=== PATIENT | female | born 1960 | race African-American/Black ===

== ENCOUNTER 2019-01-29 07:04 | Inpatient (IN) | payer OTHER ==
[2019-01-26 11:43] LABS: ANION GAP 13.4 mmol/L (8-16); BLOOD UREA NITROGEN 18 mg/dL (7-26); BUN/CREATININE RATIO 24 (6-25); CARBON DIOXIDE 24 mmol/L (22-29); CHLORIDE 104 mmol/L (98-107); CREATININE, SERUM 0.75 mg/dL (0.57-1.11); EST GLOMERULAR FILTRATION RATE > 60 ML/MIN (60-); GLUCOSE 90 mg/dL (74-118); POTASSIUM 3.4 mmol/L (3.5-5.1); SODIUM 138 mmol/L (136-145)
[~2019-01-29] VITALS: Ht 152.4 cm; Wt 120.2 kg
[2019-01-29] VITALS: BP 122/68
[~2019-01-29 07:04] MED LIST: ATORVASTATIN CA20 MG PO; DILTIAZEM HCL60 MG PO; LISINOPRIL2.5 MG PO; ZOLOFT50 MG PO
--- OUTSIDE RECORDS SUMMARY | 2019-01-29 07:07 | XMS REPORT | Clinical Summary ---
Author Author [facility] Address Unknown Phone Unavailable Care Team Providers Care Cyber Engineer Name Role Phone Asked, No Pcp PCP Unavailable Allergies No Known Allergies Medications End Date Status Medication Sig Dispensed Refills Start Date Active amLODIPine (NORVASC) 10 0 MG tablet 6 Active fluticasone (FLONASE) 50 0 mcg/actuation nasal spray 6 Active lisinopril-hydrochlorothi 0 azide 6 (PRINZIDE,ZESTORETIC) 20-12.5 mg per tablet Active sertraline (ZOLOFT) 100 0 MG tablet 6 Active atorvastatin (LIPITOR) 80 TAKE 1 TABLET 0 MG tablet (80 MG) BY MOUTH DAILY Active ergocalciferol TAKE 1 0 (ERGOCALCIFEROL) 50,000 CAPSULE BY unit capsule MOUTH EVERY WEEK Active polyethylene glycol 4 LITERS ONCE 0 (GoLYTELY) 236-22.74-6.74 A DAY ORALLY -5.86 gram solution 1 DAY(S) 05/13/2018 naproxen (NAPROSYN) 500 Take 1 tablet 60 tablet 0 MG tablet (500 mg 7 total) by mouth 2 (two) times a day with meals. Active Problems Problem Noted Date Class 3 obesity with body mass index (BMI) of 45.0 to 49.9 in adult 05/13/2017 Osteoarthritis of knee 02/20/2016 Knee pain 02/20/2016 Family History Medical History Relation Name Comments No Known Problems Mother Relation Name Status Comments Mother Social History Date Tobacco Use Types Packs/Day Years Used Never Smoker Sex Assigned at Date Recorded Not on file Industry Job Start Date Occupation Not on file Not on file Not on file Travel End Travel History Travel Start No recent travel history available. 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
--- OUTSIDE RECORDS SUMMARY | 2019-01-29 07:08 | XMS REPORT | CCD ---
Author Author Auto Generated Organization [facility] Address Unknown Phone Unavailable Care Team Providers Care Stone Finisher Name Role Phone Cornell Zimmer RP Allergies, Adverse Reactions, Alerts Substance Reaction Status NKDA Active NKFA Active Problem List Condition Effective Dates Status Bilateral mastectomy 05/21/2010 Active Breast reconstruction with latissimus dorsi flap with 05/21/2010 Active implant Hypertension Active Hypothyroid Active
--- OUTSIDE RECORDS SUMMARY | 2019-01-29 07:08 | XMS REPORT | CCD ---
Author Author Auto Generated Organization [facility] Address Unknown Phone Unavailable Care Team Providers Care Cst Name Role Phone Stephen Gomez CP Eliud Perez PP Allergies, Adverse Reactions, Alerts Substance Reaction Status NKDA Active NKFA Active Problem List Condition Effective Dates Status Bilateral mastectomy 05/21/2010 Active Breast cancer Resolved Breast reconstruction with latissimus dorsi flap with 05/21/2010 Active implant Hypertension Resolved Hypertension Active Hypothyroid Active Medications Medication Instructions Start Date End Date Status lactulose 15 gm, 22.5 mL, Route: PO, Drug 10/22/2012 10/22/2012 Completed form: SYRP, ONCE, Start date: 10/22/12 13:34:00, Stop date: 10/22/12 13:34:00 Cymbalta 60 mg, 1 cap, Route: PO, Drug form: 10/22/2012 10/24/2012 Discontinued DRC, Daily, Start date: 10/22/12 9:00:00, Duration: 30 day, Stop date: 11/20/12 9:00:00 DuoNeb inhalation 3 mL, Route: NEB, Drug Form: SOLN, 10/21/2012 10/24/2012 Discontinued solution RQ6H, PRN Wheezing, Start date: 10/21/12 1:54:00, Duration: 30 day, Stop date: 11/20/12 1:53:00 Lovenox 40 mg, 0.4 mL, Route: SUB-Q, Drug 10/21/2012 10/24/2012 Discontinued form: INJ, Daily, Start date: 10/21/12 9:00:00, Duration: 30 day, Stop date: 11/19/12 9:00:00 levofloxacin 750 mg, 1 tab, Route: PO, Drug 10/22/2012 10/24/2012 Discontinued form: TAB, Q24H, Start date: 10/22/12 2:00:00, Duration: 30 day, Stop date: 11/20/12 2:00:00 Levaquin 750 mg, 150 mL, Route: IV, Drug 10/21/2012 10/21/2012 Completed form: SOLN, ONCE, Start date: 10/21/12 2:15:00, Stop date: 10/21/12 2:15:00 Sodium Chloride 0.9% 1,000 mL, Rate: 50 ml/hr, Infuse 10/21/2012 10/21/2012 Completed IV 1,000 mL over: 20 hr, Route: IV, Dosing Weight 104.119 kg, Total Volume: 1,000, Start date: 10/21/12 12:44:00, Duration: 1 doses or times, Stop date: 10/22/12 8:43:00 methylPREDNISolone 125 mg, 2 mL, Route: IV, Drug form: 10/22/2012 10/22/2012 Discontinued INJ, Q24H, Start date: 10/22/12 0:00:00, Duration: 30 day, Stop date: 11/20/12 0:00:00 Robitussin 200 mg, 10 mL, Route: PO, Drug 10/21/2012 10/22/2012 Discontinued form: SYRP, Q4H, PRN Cough, Start date: 10/21/12 1:51:00, Duration: 30 day, Stop date: 11/20/12 1:50:00 Pepcid 20 mg, 1 tab, Route: PO, Drug form: 10/21/2012 10/24/2012 Discontinued TAB, Q12H, Start date: 10/21/12 9:00:00, Duration: 30 day, Stop date: 11/19/12 21:00:00 Sodium Chloride 0.9% 250 mL, Route: IVPB, Start date: 10/21/2012 10/24/2012 Discontinued IV 10/21/12 1:51:00, Duration: 30 day, Stop date: 11/20/12 1:50:00, PRN Line Flush BD Normal Saline 10 mL, Route: IVP, Drug Form: INJ, 10/21/2012 10/24/2012 Discontinued Flush PRN, PRN Line Flush, Start date: 10/21/12 1:51:00, Duration: 30 day, Stop date: 11/20/12 1:50:00 Tessalon Perles 200 mg, 2 cap, Route: PO, Drug 10/23/2012 10/24/2012 Discontinued form: CAP, TID, Start date: 10/23/12 19:22:00, Duration: 30 day, Stop date: 11/22/12 17:00:00 pneumococcal 0.5 ml, Route: IM, ONCALL, Start 10/24/2012 10/24/2012 Completed 23-valent vaccine date: 10/24/12 15:27:17, Stop date: 11/23/12 15:22:17 predniSONE 40 mg, 2 tab, Route: PO, Drug form: 10/23/2012 10/24/2012 Discontinued TAB, Daily, Start date: 10/23/12 9:00:00, Duration: 30 day, Stop date: 11/21/12 9:00:00 SoluMedrol 125 mg, Route: IV, ONCE, Dosing 10/21/2012 10/21/2012 Completed Weight 106.818, kg, Start date: 10/21/12 0:56:00, Stop date: 10/21/12 0:56:00 ipratropium 0.5 mg, 2.5 mL, Route: NEB, Drug 10/20/2012 10/20/2012 Completed form: SOLN, Q15Min, Dosing Weight 106.818, kg, Priority: STAT, Start date: 10/20/12 22:12:00, Duration: 2 doses or times, Stop date: 10/20/12 22:27:00 albuterol 0.083% 2.49 mg, 3 mL, Route: NEB, Drug 10/20/2012 10/20/2012 Completed inhalation solution form: SOLN, Q15Min, Dosing Weight 106.818, kg, Priority: STAT, Start date: 10/20/12 22:12:00, Duration: 2 doses or times, Stop date: 10/20/12 22:27:00 Robitussin-DM 10 mL, Route: PO, Drug Form: LIQ, 10/23/2012 10/24/2012 Discontinued Q6H-02, Start date: 10/23/12 20:00:00, Duration: 30 day, Stop date: 11/22/12 14:00:00 budesonide-formotero 1 inhalation, Route: INHALATION, 10/21/2012 10/24/2012 Discontinued l 160 mcg-4.5 Drug Form: AERO/A, RBID, Start mcg/inh inhalation date: 10/21/12 20:00:00, Duration: aerosol with adapter 30 day, Stop date: 11/20/12 8:00:00 Norvasc 10 mg, 1 tab, Route: PO, Drug form: 10/21/2012 10/24/2012 Discontinued TAB, Q24H, Start date: 10/21/12 13:00:00, Duration: 30 day, Stop date: 11/19/12 13:00:00 [place] 5/325 oral 1 tab, Route: PO, Drug Form: TAB, 10/20/2012 10/20/2012 Completed tablet Dosing Weight 106.818, kg, ONCE, Start date: 10/20/12 23:11:00, Stop date: 10/20/12 23:11:00 ibuprofen 800 mg, 1 tab, Route: PO, Drug 10/20/2012 10/20/2012 Completed form: TAB, ONCE, Dosing Weight 106.818, kg, Priority: STAT, Start date: 10/20/12 23:11:00, Stop date: 10/20/12 23:11:00 ibuprofen 600 mg, 1 tab, Route: PO, Drug 10/20/2012 10/20/2012 Discontinued form: TAB, ONCE, Dosing Weight 106.818, kg, Priority: STAT, Start date: 10/20/12 23:08:00, Stop date: 10/20/12 23:08:00 [place] 5/325 oral 1 tab, Route: PO, Drug Form: TAB, 10/20/2012 10/20/2012 Completed tablet Dosing Weight 106.818, kg, ONCE, STAT, Start date: 10/20/12 23:08:00, Stop date: 10/20/12 23:08:00 Robitussin-DM 10 mL, Route: PO, Drug Form: LIQ, 10/22/2012 10/24/2012 Discontinued Q6H, PRN Cough, Start date: 10/22/12 20:00:00, Duration: 30 day, Stop date: 11/21/12 19:59:00 Robitussin-DM 10 mL, Route: PO, Drug Form: LIQ, 10/22/2012 10/22/2012 Completed ONCE, Start date: 10/22/12 14:00:00, Stop date: 10/22/12 14:00:00 vancomycin 1 gm, 200 mL, Route: IVPB, Drug 10/20/2012 10/21/2012 Completed form: INJ, ONCE, Dosing Weight 106.818, kg, Priority: STAT, Start date: 10/20/12 23:24:00, Stop date: 10/20/12 23:24:00 cefepime + Sodium 2 gm, Route: IVPB, Drug form: INJ, 10/20/2012 10/21/2012 Completed Chloride 0.9% IV 100 ONCE, Dosing Weight 106.818, kg, mL Priority: STAT, Start date: 10/20/12 23:24:00, Stop date: 10/20/12 23:24:00 Immunizations Vaccine Date Status pneumococcal 23-valent vaccine 10/24/2012 Auth (Verified) Vital Signs Most recent to oldest [Reference Range]: 1 2 3 Height 152.4 cm (10/21/2012 02:04:00) 152.4 cm (10/20/2012 21:50:00) Temperature Oral [96.4-99.1 DegF] 98.5 DegF (10/24/2012 12:03:00) 98.6 DegF (10/24/2012 08:15:00) 98.4 DegF (10/24/2012 04:03:00) Systolic Blood Pressure [90-140 mmHg] 139 mmHg (10/24/2012 12:03:00) 153 mmHg *HI* (10/24/2012 08:15:00) 138 mmHg (10/24/2012 04:03:00) Diastolic Blood Pressure [60-90 mmHg] 89 mmHg (10/24/2012 12:03:00) 92 mmHg *HI* (10/24/2012 08:15:00) 88 mmHg (10/24/2012 04:03:00) Respiratory Rate [14-20 BRMIN] 20 BRMIN (10/24/2012 12:03:00) 20 BRMIN (10/24/2012 08:15:00) 20 BRMIN (10/24/2012 04:03:00) Peripheral Pulse Rate [60-100 bpm] 90 bpm (10/24/2012 12:03:00) 89 bpm (10/24/2012 08:15:00) 87 bpm (10/24/2012 04:03:00) Weight 104.119 kg (10/21/2012 02:04:00) 106.818 kg (10/20/2012 21:50:00) Results BACTERIAL - SEROLOGY Most recent to oldest [Reference Range]: 1 2 3 U S pneumo Ag [Negative] Negative (10/21/2012 05:30:21) MICRO MISC - SEROLOGY Most recent to oldest [Reference Range]: 1 2 3 U Legion Ag [Negative] Negative 1 (10/21/2012 05:30:21) 1Interpretive Data: This kit tests for Legionella pneumophila Serogroup 1 Antigen. CHEMISTRY Most recent to oldest [Reference Range]: 1 2 3 Sodium Lvl [135-145 mEq/L] 141 mEq/L (10/24/2012 05:10:00) 140 mEq/L (10/23/2012 05:50:00) 142 mEq/L (10/22/2012 05:00:00) Potassium Lvl [3.5-5.1 mEq/L] 3.7 mEq/L (10/24/2012 05:10:00) 3.7 mEq/L (10/23/2012 05:50:00) 4.5 mEq/L (10/22/2012 05:00:00) Chloride Lvl [95-109 mEq/L] 104 mEq/L (10/24/2012 05:10:00) 105 mEq/L (10/23/2012 05:50:00) 103 mEq/L (10/22/2012 05:00:00) CO2 [24-32 mEq/L] 27 mEq/L (10/24/2012 05:10:00) 21 mEq/L *LOW* (10/23/2012 05:50:00) 21 mEq/L *LOW* (10/22/2012 05:00:00) AGAP [10.0-20.0 mEq/L] 13.7 mEq/L (10/24/2012 05:10:00) 17.7 mEq/L (10/23/2012 05:50:00) 22.5 mEq/L *HI* (10/22/2012 05:00:00) Creatinine Lvl [0.5-1.4 mg/dL] 0.8 mg/dL (10/24/2012 05:10:00) 1.0 mg/dL (10/23/2012 05:50:00) 0.7 mg/dL (10/22/2012 05:00:00) eGFR 99 mL/min/1.73m2 2 *NA* (10/24/2012 05:10:00) 77 mL/min/1.73m2 3 *NA* (10/23/2012 05:50:00) 116 mL/min/1.73m2 4 *NA* (10/22/2012 05:00:00) BUN [7-22 mg/dL] 19 mg/dL (10/24/2012 05:10:00) 24 mg/dL *HI* (10/23/2012 05:50:00) 14 mg/dL (10/22/2012 05:00:00) B/C Ratio [6-25] 20 (10/22/2012 05:00:00) 7 (10/21/2012 09:00:00) 8 (10/20/2012 22:20:00) Glucose Lvl [70-99 mg/dL] 65 mg/dL 5 *LOW* (10/24/2012 05:10:00) 110 mg/dL 6 *HI* (10/23/2012 05:50:00) 121 mg/dL 7 *HI* (10/22/2012 05:00:00) Total Protein [6.4-8.4 g/dL] 7.9 g/dL (10/22/2012 05:00:00) 7.9 g/dL (10/21/2012 09:00:00) 8.4 g/dL (10/20/2012 22:20:00) Albumin Lvl [3.5-5.0 g/dL] 3.3 g/dL *LOW* (10/22/2012 05:00:00) 3.3 g/dL *LOW* (10/21/2012 09:00:00) 3.5 g/dL (10/20/2012 22:20:00) Globulin [2.0-4.0 g/dL] 4.6 g/dL *HI* (10/22/2012 05:00:00) 4.6 g/dL *HI* (10/21/2012 09:00:00) 4.9 g/dL *HI* (10/20/2012 22:20:00) A/G Ratio [0.7-1.6] 0.7 (10/22/2012 05:00:00) 0.7 (10/21/2012 09:00:00) 0.7 (10/20/2012 22:20:00) Calcium Lvl [8.5-10.5 mg/dL] 8.6 mg/dL (10/24/2012 05:10:00) 9.1 mg/dL (10/23/2012 05:50:00) 9.1 mg/dL (10/22/2012 05:00:00) Magnesium Lvl [1.8-2.4 mg/dL] 2.1 mg/dL (10/22/2012 05:00:00) ALT [0-65 unit/L] 56 unit/L (10/22/2012 05:00:00) 86 unit/L *HI* (10/21/2012 09:00:00) 39 unit/L (10/20/2012 22:20:00) AST [0-37 unit/L] 32 unit/L (10/22/2012 05:00:00) 110 unit/L *HI* (10/21/2012 09:00:00) 15 unit/L (10/20/2012 22:20:00) Alk Phos [39-136 unit/L] 47 unit/L (10/22/2012 05:00:00) 64 unit/L (10/21/2012 09:00:00) 55 unit/L (10/20/2012 22:20:00) Bili Total [0.2-1.3 mg/dL] 0.4 mg/dL (10/22/2012 05:00:00) 0.5 mg/dL (10/21/2012 09:00:00) 0.4 mg/dL (10/20/2012 22:20:00) Lactic Acid Lvl [0.5-2.2 mMol/L] 2.1 mMol/L (10/21/2012 00:17:29) Total CK [12-191 unit/L] 117 unit/L (10/20/2012 22:20:00) CK MB [0.5-3.6 ng/mL] <0.5 ng/mL (10/20/2012:20:00) CK MB Index [0.0-2.5] <0.4 (10/20/2012:20:00) Troponin-I [0.00-0.40 ng/mL] <0.02 ng/mL (10/20/2012 22:20:00) Hgb A1C 5.7 % 8 *NA* (10/22/2012 05:00:00) pH Art [7.35-7.45] 7.42 (10/20/2012:24:00) pCO2 Art [35-45 mmHg] 40 mmHg (10/20/2012:24:00) pO2 Art [80-100 mmHg] 71 mmHg *LOW* (10/20/2012:24:00) HCO3 Art [22-26 mMol/L] 26 mMol/L (10/20/2012:24:00) BE Art [-2-2 mMol/L] 1 mMol/L (10/20/2012:24:00) O2 Sat Art [95.0-100.0 %] 94.4 % *LOW* (10/20/2012:24:00) Temp Art 37.0 DegC *NA* (10/20/2012:24:00) Mode Art Rm Air (10/20/2012 23:24:00) 2Result Comment: The eGFR is calculated using the CKD-EPI formula. In most young, healthy individuals the eGFR will be >90 mL/min/1.73m2. The eGFR declines with age. An eGFR of 60-89 may be normal in some populations, particularly the elderly, for whom the CKD-EPI formula has not been extensively validated. Use of the eGFR is not recommended in the following populations: Individuals with unstable creatinine concentrations, including patients and those with serious co-morbid conditions. Patients with extremes in muscle mass or diet. The data above are obtained from the National Kidney Disease Education Program ( NKDEP) which additionally recommends that when the eGFR is used in patients with extremes of body mass index for purposes of drug dosing, the eGFR should be mul tiplied by the estimated BMI. 3Result Comment: The eGFR is calculated using the CKD-EPI formula. In most young, healthy individuals the eGFR will be >90 mL/min/1.73m2. The eGFR declines with age. An eGFR of 60-89 may be normal in some populations, particularly the elderly, for whom the CKD-EPI formula has not been extensively validated. Use of the eGFR is not recommended in the following populations: Individuals with unstable creatinine concentrations, including patients and those with serious co-morbid conditions. Patients with extremes in muscle mass or diet. The data above are obtained from the National Kidney Disease Education Program ( NKDEP) which additionally recommends that when the eGFR is used in patients with extremes of body mass index for purposes of drug dosing, the eGFR should be mul tiplied by the estimated BMI. 4Result Comment: The eGFR is calculated using the CKD-EPI formula. In most young, healthy individuals the eGFR will be >90 mL/min/1.73m2. The eGFR declines with age. An eGFR of 60-89 may be normal in some populations, particularly the elderly, for whom the CKD-EPI formula has not been extensively validated. Use of the eGFR is not recommended in the following populations: Individuals with unstable creatinine concentrations, including patients and those with serious co-morbid conditions. Patients with extremes in muscle mass or diet. The data above are obtained from the National Kidney Disease Education Program ( NKDEP) which additionally recommends that when the eGFR is used in patients with extremes of body mass index for purposes of drug dosing, the eGFR should be mul tiplied by the estimated BMI. 5Interpretive Data: Adult reference range values reflect the clinical guidelines of the [place] [employer]. 6Interpretive Data: Adult reference range values reflect the clinical guidelines of the [place] [employer]. 7Interpretive Data: Adult reference range values reflect the clinical guidelines of the [place] [employer]. 8Interpretive Data: HbA1C% eAG(mg/dL) Interpretation 6.0 126 Very good control 6.5 140 Very good control 7.0 154 Good Control 7.5 169 Good Control 8.0 183 Marginal Control, take action to lower 8.5 197 Marginal Control, take action to lower 9.0 212 Poor Control, take action to lower 9.5 226 Poor Control, take action to lower 10.0 240 Poor Control, take action to lower HEMATOLOGY Most recent to oldest [Reference Range]: 1 2 3 WBC [3.7-10.4 K/CMM] 11.6 K/CMM *HI* (10/24/2012 05:10:00) 19.0 K/CMM *HI* (10/23/2012 05:50:00) 14.7 K/CMM *HI* (10/22/2012 05:00:00) RBC [4.20-5.40 M/CMM] 3.90 M/CMM *LOW* (10/24/2012 05:10:00) 4.21 M/CMM (10/23/2012 05:50:00) 4.28 M/CMM (10/22/2012 05:00:00) Hgb [12.0-16.0 g/dL] 10.9 g/dL *LOW* (10/24/2012 05:10:00) 11.7 g/dL *LOW* (10/23/2012 05:50:00) 12.1 g/dL (10/22/2012 05:00:00) Hct [36.0-48.0 %] 33.0 % *LOW* (10/24/2012 05:10:00) 35.4 % *LOW* (10/23/2012 05:50:00) 36.1 % (10/22/2012 05:00:00) MCV [81.0-99.0 fL] 84.4 fL (10/24/2012 05:10:00) 84.0 fL (10/23/2012 05:50:00) 84.2 fL (10/22/2012 05:00:00) MCH [27.0-31.0 pg] 27.8 pg (10/24/2012 05:10:00) 27.8 pg (10/23/2012 05:50:00) 28.1 pg (10/22/2012 05:00:00) MCHC [32.0-36.0 g/dL] 32.9 g/dL (10/24/2012 05:10:00) 33.1 g/dL (10/23/2012 05:50:00) 33.5 g/dL (10/22/2012 05:00:00) RDW [11.5-14.5 %] 15.2 % *HI* (10/24/2012 05:10:00) 15.4 % *HI* (10/23/2012 05:50:00) 15.0 % *HI* (10/22/2012 05:00:00) Platelet [133-450 K/CMM] 384 K/CMM (10/24/2012 05:10:00) 394 K/CMM (10/23/2012 05:50:00) 375 K/CMM (10/22/2012 05:00:00) MPV [7.4-10.4 fL] 8.2 fL (10/24/2012 05:10:00) 7.9 fL (10/23/2012 05:50:00) 8.5 fL (10/22/2012 05:00:00) Segs [45.0-75.0 %] 70.5 % (10/24/2012 05:10:00) 86.2 % *HI* (10/23/2012 05:50:00) 88.9 % *HI* (10/22/2012 05:00:00) Lymphocytes [20.0-40.0 %] 20.5 % (10/24/2012 05:10:00) 8.1 % *LOW* (10/23/2012 05:50:00) 9.5 % *LOW* (10/22/2012 05:00:00) Monocytes [2.0-12.0 %] 8.7 % (10/24/2012 05:10:00) 5.7 % (10/23/2012 05:50:00) 1.5 % *LOW* (10/22/2012 05:00:00) Eosinophils [0.0-4.0 %] 0.0 % (10/24/2012 05:10:00) 0.0 % (10/23/2012 05:50:00) 0.0 % (10/22/2012 05:00:00) Basophils [0.0-1.0 %] 0.3 % (10/24/2012 05:10:00) 0.0 % (10/23/2012 05:50:00) 0.1 % (10/22/2012 05:00:00) Segs-Bands # [1.5-8.1 K/CMM] 8.2 K/CMM *HI* (10/24/2012 05:10:00) 16.3 K/CMM *HI* (10/23/2012 05:50:00) 13.1 K/CMM *HI* (10/22/2012 05:00:00) Lymphocytes # [1.0-5.5 K/CMM] 2.4 K/CMM (10/24/2012 05:10:00) 1.5 K/CMM (10/23/2012 05:50:00) 1.4 K/CMM (10/22/2012 05:00:00) Monocytes # [0.0-0.8 K/CMM] 1.0 K/CMM *HI* (10/24/2012 05:10:00) 1.1 K/CMM *HI* (10/23/2012 05:50:00) 0.2 K/CMM (10/22/2012 05:00:00) Eosinophils # [0.0-0.5 K/CMM] 0.0 K/CMM (10/24/2012 05:10:00) 0.0 K/CMM (10/23/2012 05:50:00) 0.0 K/CMM (10/22/2012 05:00:00) Basophils # [0.0-0.2 K/CMM] 0.0 K/CMM (10/24/2012 05:10:00) 0.0 K/CMM (10/23/2012 05:50:00) 0.0 K/CMM (10/22/2012 05:00:00) RBC Morph Normal (10/21/2012 09:00:00) Polychrom [None Seen] Slight (10/24/2012 05:10:00) Plt Morph Normal (10/21/2012 09:00:00) Sed Rate [0-20 mm/hr] 45 mm/hr *HI* (10/21/2012 09:00:00) IMMUNOLOGY Most recent to oldest [Reference Range]: 1 2 3 HIV 1/2 Ab [Negative] Negative *NA* (10/21/2012 09:00:00) Microbiology Reports PROCEDURE:Culture: Respiratory w/Gram Stain STATUS: Auth (Verified) BODY SITE: COLLECTED DATE/TIME: 10/21/2012 05:30:47 SOURCE: Sputum FREE TEXT SOURCE: FINAL REPORTS Final Report Many Haemophilus parainfluenzae Rare Staphylococcus aureus Normal Respiratory Chel Isolated PRELIMINARY REPORTS Preliminary Report Normal Respiratory Chel Isolated Preliminary Report Many Haemophilus parainfluenzae Rare Staphylococcus aureus Normal Respiratory Chel Isolated Further Testing In Progress Preliminary Report Normal Respiratory Chel Isolated Further Testing In Progress STAIN REPORTS Stain Report Less Than 25 Squamous Epithelial Cells/Lpf Rare WBC's Few Gram Positive Cocci Rare Gram Positive Rods Rare Gram Negative Rods Good Quality Specimen SUSCEPTIBILITY REPORT SA Antibiotic INTERP., DAREN., Cefazolin S <=4 Clindamycin S <=0.25 Erythromycin S <=0.25 Levofloxacin S <=0.5 Oxacillin S 0.5 Rifampin S <=1 Tetracycline S <=1 Trimethoprim/Sulfamethoxazole S <=0.5/9.5 Vancomycin S 1 PROCEDURE:Culture: Blood STATUS: Auth (Verified) BODY SITE: COLLECTED DATE/TIME: 10/21/2012 00:17:48 SOURCE: Blood FREE TEXT SOURCE: FINAL REPORTS Final Report No Growth At 5 Days PRELIMINARY REPORTS Preliminary Report No Growth; Holding Preliminary Report No Growth At 2 Days Preliminary Report No Growth At 4 Days Preliminary Report No Growth At 3 Days Preliminary Report No Growth At 1 Day PROCEDURE:Culture: Blood STATUS: Auth (Verified) BODY SITE: COLLECTED DATE/TIME: 10/21/2012 00:17:04 SOURCE: Blood FREE TEXT SOURCE: FINAL REPORTS Final Report No Growth At 5 Days PRELIMINARY REPORTS Preliminary Report No Growth At 3 Days Preliminary Report No Growth At 4 Days Preliminary Report No Growth; Holding Preliminary Report No Growth At 2 Days Preliminary Report No Growth At 1 Day Procedures Procedures Date Related Diagnosis section Cholecystectomy Hernia repair Mastectomy
--- OUTSIDE RECORDS SUMMARY | 2019-01-29 07:08 | XMS REPORT | Summary of Care ---
Author Organization Unknown Address Unknown Phone Unavailable Care Team Providers Care Housing [employer] Judge Name Role Phone Eliud Perez PCP Encounter [facility] Yus[facility](EZIO) [id number] Date(s): 11/15/14 - 12/14/14 [facility] Discharge Disposition: Home Physician Attending: Mihir Pantoja MD Vital Signs No data available for this section Problem List Condition Effective Dates Status Health Status Informant Bilateral 05/21/10 Active mastectomy(Confirmed ) Breast Resolved cancer(Confirmed) Breast 05/21/10 Active reconstruction with latissimus dorsi flap with implant(Confirmed) Hypertension(Confirm Resolved ed) Hypertension(Confirm Active ed) Hypothyroid(Confirme Active d) Allergies, Adverse Reactions, Alerts Substance Reaction Severity Status NKDA Active NKFA Active Medications No data available for this section Results No data available for this section Immunizations Vaccine Date Refusal Reason pneumococcal 23-valent vaccine 10/24/12 Procedures Procedure Date Related Diagnosis Body Site section Cholecystectomy Hernia repair Mastectomy Social History Social History Type Response Assessment and Plan No data available for this section
--- OUTSIDE RECORDS SUMMARY | 2019-01-29 07:08 | XMS REPORT | Continuity of Care Document ---
Author Author [employer] Organization [employer] Address Unknown Phone Unavailable Care Team Providers Care Reclamation Engineer Name Role Phone DefenCall Information Exchange Unavailable Unavailable Problems Problem Status Onset Date Classification Date Reported Comments Source MORBID OBERSITY E66.01 Active 01/10/2017 [facility] E66.01 MORBID OBESITY Active 11/04/2016 [facility] [id number] Active 2016 [facility] ACUTE RLL PNEUMONIA Active 10/20/2012 [facility] BRONCHITIS Active 10/20/2012 [facility] 466.0 - ACUTE BRONCHITI Active 10/13/2012 [facility] LEFT BREASTS CANCER 174.9, 611.0 Active 10/25/2011 [facility] Bilateral mastectomy Active 05/21/2010 Problem 10/26/2012 [facility] Breast reconstruction with latissimus dorsi flap with implant Active 05/21/2010 Problem 10/26/2012 [facility] Bilateral mastectomy (procedure) Active 05/21/2010 Problem 01/13/2017 [facility] Breast reconstruction with latissimus dorsi flap with implant (procedure) Active 05/21/2010 Problem 01/13/2017 [facility] Hypertension Resolved Problem 10/26/2012 [facility] Hypothyroid Active Problem 10/26/2012 [facility] Malignant tumor of breast (disorder) Resolved Problem 01/13/2017 [facility] Hypertensive disorder, systemic arterial (disorder) Resolved Problem 01/13/2017 [facility] Hypothyroidism (disorder) Active Problem 01/13/2017 [facility] Breast cancer Resolved Problem 10/26/2012 [facility] PNEUMONIA, ORGANISM NOS Active [facility] RT KNEE PAIN Active [facility] JOINT DIS NOS-L/LEG Active [facility] MORBID (SEVERE) OBESITY DUE TO EXCESS CA Active [place] Medications Medication Details Route Status Patient Instructions Ordering Provider Order Date Source diltiazem 360 mg/24 hours oral capsule, extended release 360 mg=1 cap, PO, Daily, 0 Refill(s) Active 10/08/2016 [facility] atorvastatin 80 mg oral tablet 80 mg=1 tab, PO, Daily, 0 Refill(s) Active 10/08/2016 [facility] Sertraline 100 MG Oral Tablet [Zoloft] 100 mg=1 tab, PO, Daily, 0 Refill(s) Active 10/08/2016 [facility] Hydrochlorothiazide 12.5 MG / Lisinopril 20 MG Oral Tablet 1 tab, PO, Daily, 0 Refill(s) Active 10/08/2016 [facility] pneumococcal 23-valent vaccine 0.5 ml, Route: IM, ONCALL, Start date: 10/24/12 15:27:17, Stop date: 11/23/12 15:22:17 Inactive SYSTEM 10/24/2012 MARION Castrejon,[facility] Robitussin-DM 10 mL, Route: PO, Drug Form: LIQ, Q6H-02, Start date: 10/23/12 20:00:00, Duration: 30 day, Stop date: 11/22/12 14:00:00 PO No Longer Active [facility] 10/24/2012 [facility] Tessalon Perles 200 mg, 2 cap, Route: PO, Drug form: CAP, TID, Start date: 10/23/12 19:22:00, Duration: 30 day, Stop date: 11/22/12 17:00:00 PO No Longer Active [facility] 10/24/2012 [facility] predniSONE 40 mg, 2 tab, Route: PO, Drug form: TAB, Daily, Start date: 10/23/12 9:00:00, Duration: 30 day, Stop date: 11/21/12 9:00:00 PO No Longer Active [facility] 10/23/2012 [facility] Robitussin-DM 10 mL, Route: PO, Drug Form: LIQ, Q6H, PRN Cough, Start date: 10/22/12 20:00:00, Duration: 30 day, Stop date: 11/21/12 19:59:00 PO No Longer Active [facility] 10/23/2012 [facility] Robitussin-DM 10 mL, Route: PO, Drug Form: LIQ, ONCE, Start date: 10/22/12 14:00:00, Stop date: 10/22/12 14:00:00 PO No Longer Active [facility] 10/22/2012 [facility] lactulose 15 gm, 22.5 mL, Route: PO, Drug form: SYRP, ONCE, Start date: 10/22/12 13:34:00, Stop date: 10/22/12 13:34:00 PO No Longer Active [facility] 10/22/2012 [facility] Cymbalta 60 mg, 1 cap, Route: PO, Drug form: DRC, Daily, Start date: 10/22/12 9:00:00, Duration: 30 day, Stop date: 11/20/12 9:00:00 PO No Longer Active [facility] 10/22/2012 [facility] levofloxacin 750 mg, 1 tab, Route: PO, Drug form: TAB, Q24H, Start date: 10/22/12 2:00:00, Duration: 30 day, Stop date: 11/20/12 2:00:00 PO No Longer Active [facility] 10/22/2012 [facility] methylPREDNISolone 125 mg, 2 mL, Route: IV, Drug form: INJ, Q24H, Start date: 10/22/12 0:00:00, Duration: 30 day, Stop date: 11/20/12 0:00:00 IV No Longer Active [facility] 10/22/2012 [facility] budesonide-formoterol 160 mcg-4.5 mcg/inh inhalation aerosol with adapter 1 inhalation, Route: INHALATION, Drug Form: AERO/A, RBID, Start date: 10/21/12 20:00:00, Duration: 30 day, Stop date: 11/20/12 8:00:00 INHALATION No Longer Active [facility] 10/22/2012 [facility] Norvasc 10 mg, 1 tab, Route: PO, Drug form: TAB, Q24H, Start date: 10/21/12 13:00:00, Duration: 30 day, Stop date: 11/19/12 13:00:00 PO No Longer Active [facility] 10/21/2012 [facility] Sodium Chloride 0.9% IV 1,000 mL 1,000 mL, Rate: 50 ml/hr, Infuse over: 20 hr, Route: IV, Dosing Weight 104.119 kg, Total Volume: 1,000, Start date: 10/21/12 12:44:00, Duration: 1 doses or times, Stop date: 10/22/12 8:43:00 IV No Longer Active [facility] 10/21/2012 [facility] Lovenox 40 mg, 0.4 mL, Route: SUB-Q, Drug form: INJ, Daily, Start date: 10/21/12 9:00:00, Duration: 30 day, Stop date: 11/19/12 9:00:00 SUB-Q No Longer Active [facility] 10/21/2012 [facility] Pepcid 20 mg, 1 tab, Route: PO, Drug form: TAB, Q12H, Start date: 10/21/12 9:00:00, Duration: 30 day, Stop date: 11/19/12 21:00:00 PO No Longer Active [facility] 10/21/2012 [facility] Levaquin 750 mg, 150 mL, Route: IV, Drug form: SOLN, ONCE, Start date: 10/21/12 2:15:00, Stop date: 10/21/12 2:15:00 IV No Longer Active [facility] 10/21/2012 [facility] DuoNeb inhalation solution 3 mL, Route: NEB, Drug Form: SOLN, RQ6H, PRN Wheezing, Start date: 10/21/12 1:54:00, Duration: 30 day, Stop date: 11/20/12 1:53:00 NEB No Longer Active [facility] 10/21/2012 [facility] Robitussin 200 mg, 10 mL, Route: PO, Drug form: SYRP, Q4H, PRN Cough, Start date: 10/21/12 1:51:00, Duration: 30 day, Stop date: 11/20/12 1:50:00 PO No Longer Active [facility] 10/21/2012 [facility] Sodium Chloride 0.9% IV 250 mL, Route: IVPB, Start date: 10/21/12 1:51:00, Duration: 30 day, Stop date: 11/20/12 1:50:00, PRN Line Flush IVPB No Longer Active [facility] 10/21/2012 [facility] BD Normal Saline Flush 10 mL, Route: IVP, Drug Form: INJ, PRN, PRN Line Flush, Start date: 10/21/12 1:51:00, Duration: 30 day, Stop date: 11/20/12 1:50:00 IVP No Longer Active [facility] 10/21/2012 [facility] SoluMedrol 125 mg, Route: IV, ONCE, Dosing Weight 106.818, kg, Start date: 10/21/12 0:56:00, Stop date: 10/21/12 0:56:00 IV No Longer Active [facility] 10/21/2012 [facility] vancomycin 1 gm, 200 mL, Route: IVPB, Drug form: INJ, ONCE, Dosing Weight 106.818, kg, Priority: STAT, Start date: 10/20/12 23:24:00, Stop date: 10/20/12 23:24:00 IVPB No Longer Active [facility] 10/21/2012 [facility] cefepime + Sodium Chloride 0.9% IV 100 mL 2 gm, Route: IVPB, Drug form: INJ, ONCE, Dosing Weight 106.818, kg, Priority: STAT, Start date: 10/20/12 23:24:00, Stop date: 10/20/12 23:24:00 IVPB No Longer Active [facility]10/21/2012 [facility] [place] 5/325 oral tablet 1 tab, Route: PO, Drug Form: TAB, Dosing Weight 106.818, kg, ONCE, Start date: 10/20/12 23:11:00, Stop date: 10/20/12 23:11:00 PO No Longer Active [facility] 10/21/2012 [facility] ibuprofen 800 mg, 1 tab, Route: PO, Drug form: TAB, ONCE, Dosing Weight 106.818, kg, Priority: STAT, Start date: 10/20/12 23:11:00, Stop date: 10/20/12 23:11:00 PO No Longer Active Lagisey 10/21/2012 [facility] ibuprofen 600 mg, 1 tab, Route: PO, Drug form: TAB, ONCE, Dosing Weight 106.818, kg, Priority: STAT, Start date: 10/20/12 23:08:00, Stop date: 10/20/12 23:08:00 PO No Longer Active [facility] 10/21/2012 [facility] [place] 5/325 oral tablet 1 tab, Route: PO, Drug Form: TAB, Dosing Weight 106.818, kg, ONCE, STAT, Start date: 10/20/12 23:08:00, Stop date: 10/20/12 23:08:00 PO No Longer Active Poppyise10/21/2012 [facility] ipratropium 0.5 mg, 2.5 mL, Route: NEB, Drug form: SOLN, Q15Min, Dosing Weight 106.818, kg, Priority: STAT, Start date: 10/20/12 22:12:00, Duration: 2 doses or times, Stop date: 10/20/12 22:27:00 NEB No Longer Active [facility] 10/21/2012 [facility] albuterol 0.083% inhalation solution 2.49 mg, 3 mL, Route: NEB, Drug form: SOLN, Q15Min, Dosing Weight 106.818, kg, Priority: STAT, Start date: 10/20/12 22:12:00, Duration: 2 doses or times, Stop date: 10/20/12 22:27:00 NEB No Longer Active [facility]ontim 10/21/2012 [facility] Allergies, Adverse Reactions, Alerts Substance Category Reaction Severity Reaction type Status Date Reported Comments Source NKFA Assertion Drug allergy Active [facility] Immunizations Immunization Date Given Site Status Last Updated Comments Source pneumococcal 23-valent vaccine 10/24/2012 Left Deltoid completed Anu [facility] pneumococcal 23-valent vaccine 10/24/2012 completed Anu MARION Castrejon,[facility] Results Order Name Results Value Reference Range Date Interpretation Comments Source CHEMISTRY eGFR 99 10/24/2012 NA <sup>2</sup>Result Comment: The eGFR is calculated using the CKD-EPI formula. In most young, healthy individuals the eGFR will be >90 mL/min/1.73m2. The eGFR declines with age. An eGFR of 60-89 may be normal in some populations, particularly the elderly, for whom the CKD-EPI formula has not been extensively validated. Use of the eGFR is not recommended in the following populations:& lt;br/>
Individuals with unstable creatinine concentrations, including patients and those with serious co-morbid conditions.

Patients with extremes in muscle mass or diet.

The data above are obtained from the National Kidney Disease Education Program (NKDEP) which additionally recommends that when the eGFR is used in patients with extremes of body mass index for purposes of drug dosing, the eGFR should be multiplied by the estimated BMI. [facility] CHEMISTRY Creatinine Lvl 0.8 0.5 - 1.4 10/24/2012 Normal [facility] CHEMISTRY Sodium Lvl 141 135 - 145 10/24/2012 Normal [facility] CHEMISTRY Glucose Lvl 65 70 - 99 10/24/2012 LOW <sup>5</sup>Interpretive Data: Adult reference range values reflect the clinical guidelines
of the [place] [employer]. [facility] CHEMISTRY Potassium Lvl 3.7 3.5 - 5.1 10/24/2012 Normal [facility] CHEMISTRY AGAP 13.7 10.0 - 20.0 10/24/2012 Normal [facility] CHEMISTRY Calcium Lvl 8.6 8.5 - 10.5 10/24/2012 Normal [facility] CHEMISTRY Chloride Lvl 104 95 - 109 10/24/2012 Normal [facility] CHEMISTRY BUN 19 7 - 22 10/24/2012 Normal [facility] CHEMISTRY CO2 27 24 - 32 10/24/2012 Normal [facility] HEMATOLOGY WBC 11.6 3.7 - 10.4 10/24/2012 HI [facility] HEMATOLOGY MCV 84.4 81.0 - 99.0 10/24/2012 Normal [facility] HEMATOLOGY Hct 33.0 36.0 - 48.0 10/24/2012 LOW [facility] HEMATOLOGY Hgb 10.9 12.0 - 16.0 10/24/2012 LOW [facility] HEMATOLOGY RBC 3.90 4.20 - 5.40 10/24/2012 LOW [facility] HEMATOLOGY MPV 8.2 7.4 - 10.4 10/24/2012 Normal [facility] HEMATOLOGY Platelet 384 133 - 450 10/24/2012 Normal [facility] HEMATOLOGY MCHC 32.9 32.0 - 36.0 10/24/2012 Normal [facility] HEMATOLOGY MCH 27.8 27.0 - 31.0 10/24/2012 Normal [facility] HEMATOLOGY RDW 15.2 11.5 - 14.5 10/24/2012 [facility] HEMATOLOGY Polychrom Slight (10/24/2012 05:10:00) None Seen 10/24/2012 Normal [facility] HEMATOLOGY Lymphocytes 20.5 20.0 - 40.0 10/24/2012 Normal [facility] HEMATOLOGY Eosinophils 0.0 0.0 - 4.0 10/24/2012 Normal [facility] HEMATOLOGY Basophils 0.3 0.0 - 1.0 10/24/2012 Normal [facility] HEMATOLOGY Monocytes 8.7 2.0 - 12.0 10/24/2012 Normal [facility] HEMATOLOGY Segs 70.5 45.0 - 75.0 10/24/2012 Normal [facility] HEMATOLOGY Segs-Bands # 8.2 1.5 - 8.1 10/24/2012 HI [facility] HEMATOLOGY Lymphocytes # 2.4 1.0 - 5.5 10/24/2012 Normal [facility] HEMATOLOGY Monocytes # 1.0 0.0 - 0.8 10/24/2012 HI [facility] HEMATOLOGY Eosinophils # 0.0 0.0 - 0.5 10/24/2012 Normal [facility] HEMATOLOGY Basophils # 0.0 0.0 - 0.2 10/24/2012 Normal [facility] CHEMISTRY eGFR 77 10/23/2012 NA <sup>3</sup>Result Comment: The eGFR is calculated using the CKD-EPI formula. In most young, healthy individuals the eGFR will be >90 mL/min/1.73m2. The eGFR declines with age. An eGFR of 60-89 may be normal in some populations, particularly the elderly, for whom the CKD-EPI formula has not been extensively validated. Use of the eGFR is not recommended in the following populations:& lt;br/>
Individuals with unstable creatinine concentrations, including patients and those with serious co-morbid conditions.

Patients with extremes in muscle mass or diet.

The data above are obtained from the National Kidney Disease Education Program (NKDEP) which additionally recommends that when the eGFR is used in patients with extremes of body mass index for purposes of drug dosing, the eGFR should be multiplied by the estimated BMI. [facility] CHEMISTRY Sodium Lvl 140 135 - 145 10/23/2012 Normal [facility] CHEMISTRY Glucose Lvl 110 70 - 99 10/23/2012 HI <sup>6</sup>Interpretive Data: Adult reference range values reflect the clinical guidelines
of the [place] [employer]. [facility] CHEMISTRY Creatinine Lvl 1.0 0.5 - 1.4 10/23/2012 Normal [facility] CHEMISTRY BUN 24 7 - 22 10/23/2012 HI [facility] CHEMISTRY Calcium Lvl 9.1 8.5 - 10.5 10/23/2012 Normal [facility] CHEMISTRY Potassium Lvl 3.7 3.5 - 5.1 10/23/2012 Normal [facility] CHEMISTRY CO2 21 24 - 32 10/23/2012 LOW [facility] CHEMISTRY Chloride Lvl 105 95 - 109 10/23/2012 Normal [facility] CHEMISTRY AGAP 17.7 10.0 - 20.0 10/23/2012 Normal [facility] HEMATOLOGY Basophils 0.0 0.0 - 1.0 10/23/2012 [facility] HEMATOLOGY Eosinophils 0.0 0.0 - 4.0 10/23/2012 [facility] HEMATOLOGY Monocytes 5.7 2.0 - 12.0 10/23/2012 [facility] HEMATOLOGY Lymphocytes 8.1 20.0 - 40.0 10/23/2012 [facility] HEMATOLOGY Segs 86.2 45.0 - 75.0 10/23/2012 [facility] HEMATOLOGY Basophils # 0.0 0.0 - 0.2 10/23/2012 Normal [facility] HEMATOLOGY Eosinophils # 0.0 0.0 - 0.5 10/23/2012 [facility] HEMATOLOGY Monocytes # 1.1 0.0 - 0.8 10/23/2012 [facility] HEMATOLOGY Lymphocytes # 1.5 1.0 - 5.5 10/23/2012 [facility] HEMATOLOGY Segs-Bands # 16.3 1.5 - 8.1 10/23/2012 [facility] HEMATOLOGY MPV 7.9 7.4 - 10.4 10/23/2012 [facility] HEMATOLOGY Platelet 394 133 - 450 10/23/2012 [facility] HEMATOLOGY RDW 15.4 11.5 - 14.5 10/23/2012 [facility] HEMATOLOGY MCHC 33.1 32.0 - 36.0 10/23/2012 [facility] HEMATOLOGY MCH 27.8 27.0 - 31.0 10/23/2012 [facility] HEMATOLOGY MCV 84.0 81.0 - 99.0 10/23/2012 Normal [facility] HEMATOLOGY Hct 35.4 36.0 - 48.0 10/23/2012 [facility] HEMATOLOGY Hgb 11.7 12.0 - 16.0 10/23/2012 [facility] HEMATOLOGY RBC 4.21 4.20 - 5.40 10/23/2012 [facility] HEMATOLOGY WBC 19.0 3.7 - 10.4 10/23/2012 [facility] CHEMISTRY Hgb A1C 5.7 10/22/2012 NA <sup>8</sup>Interpretive Data: HbA1C% eAG(mg/dL) Interpretation
6.0 126 Very good control
6.5 140 Very good control
7.0 154 Good Control
7.5 169 Good Control
8.0 183 Marginal Control, take action to lower
8.5 197 Marginal Control, take action to lower
9.0 212 Poor Control, take action to lower
9.5 226 Poor Control, take action to lower
10.0 240 Poor Control, take action to lower [facility] CHEMISTRY Magnesium Lvl 2.1 1.8 - 2.4 10/22/2012 Normal [facility] CHEMISTRY eGFR 116 10/22/2012 NA <sup>4</sup>Result Comment: The eGFR is calculated using the CKD-EPI formula. In most young, healthy individuals the eGFR will be >90 mL/min/1.73m2. The eGFR declines with age. An eGFR of 60-89 may be normal in some populations, particularly the elderly, for whom the CKD-EPI formula has not been extensively validated. Use of the eGFR is not recommended in the following populations:& lt;br/>
Individuals with unstable creatinine concentrations, including patients and those with serious co-morbid conditions.

Patients with extremes in muscle mass or diet.

The data above are obtained from the National Kidney Disease Education Program (NKDEP) which additionally recommends that when the eGFR is used in patients with extremes of body mass index for purposes of drug dosing, the eGFR should be multiplied by the estimated BMI. [facility] CHEMISTRY Potassium Lvl 4.5 3.5 - 5.1 10/22/2012 Normal [facility] CHEMISTRY Sodium Lvl 142 135 - 145 10/22/2012 Normal [facility] CHEMISTRY Creatinine Lvl 0.7 0.5 - 1.4 10/22/2012 Normal [facility] CHEMISTRY Chloride Lvl 103 95 - 109 10/22/2012 Normal [facility] CHEMISTRY Glucose Lvl 121 70 - 99 10/22/2012 HI <sup>7</sup>Interpretive Data: Adult reference range values reflect the clinical guidelines
of the [place] [employer]. [facility] CHEMISTRY Alk Phos 47 39 - 136 10/22/2012 Normal [facility] CHEMISTRY BUN 14 7 - 22 10/22/2012 Normal [facility] CHEMISTRY ALT 56 0 - 65 10/22/2012 Normal [facility] CHEMISTRY CO2 21 24 - 32 10/22/2012 LOW [facility] CHEMISTRY Albumin Lvl 3.3 3.5 - 5.0 10/22/2012 LOW [facility] CHEMISTRY AGAP 22.5 10.0 - 20.0 10/22/2012 [facility] CHEMISTRY Total Protein 7.9 6.4 - 8.4 10/22/2012 Normal [facility] CHEMISTRY Globulin 4.6 2.0 - 4.0 10/22/2012 [facility] CHEMISTRY B/C Ratio 20 6 - 25 10/22/2012 Normal [facility] CHEMISTRY Bili Total 0.4 0.2 - 1.3 10/22/2012 Normal [facility] CHEMISTRY Calcium Lvl 9.1 8.5 - 10.5 10/22/2012 Normal [facility] CHEMISTRY AST 32 0 - 37 10/22/2012 Normal [facility] CHEMISTRY A/G Ratio 0.7 0.7 - 1.6 10/22/2012 Normal [facility] HEMATOLOGY MCH 28.1 27.0 - 31.0 10/22/2012 Normal [facility] HEMATOLOGY MCV 84.2 81.0 - 99.0 10/22/2012 Normal [facility] HEMATOLOGY RBC 4.28 4.20 - 5.40 10/22/2012 Normal [facility] HEMATOLOGY Hgb 12.1 12.0 - 16.0 10/22/2012 [facility] HEMATOLOGY Hct 36.1 36.0 - 48.0 10/22/2012 Normal [facility] HEMATOLOGY MPV 8.5 7.4 - 10.4 10/22/2012 Normal [facility] HEMATOLOGY MCHC 33.5 32.0 - 36.0 10/22/2012 Normal [facility] HEMATOLOGY RDW 15.0 11.5 - 14.5 10/22/2012 [facility] HEMATOLOGY Platelet 375 133 - 450 10/22/2012 Normal [facility] HEMATOLOGY WBC 14.7 3.7 - 10.4 10/22/2012 [facility] HEMATOLOGY Eosinophils 0.0 0.0 - 4.0 10/22/2012 Normal [facility] HEMATOLOGY Segs 88.9 45.0 - 75.0 10/22/2012 [facility] HEMATOLOGY Lymphocytes 9.5 20.0 - 40.0 10/22/2012 LOW [facility] HEMATOLOGY Monocytes 1.5 2.0 - 12.0 10/22/2012 LOW [facility] HEMATOLOGY Lymphocytes # 1.4 1.0 - 5.5 10/22/2012 Normal [facility] HEMATOLOGY Monocytes # 0.2 0.0 - 0.8 10/22/2012 Normal [facility] HEMATOLOGY Eosinophils # 0.0 0.0 - 0.5 10/22/2012 Normal [facility] HEMATOLOGY Basophils 0.1 0.0 - 1.0 10/22/2012 Normal [facility] HEMATOLOGY Segs-Bands # 13.1 1.5 - 8.1 10/22/2012 HI [facility] HEMATOLOGY Basophils # 0.0 0.0 - 0.2 10/22/2012 Normal [facility] CHEMISTRY Total Protein 7.9 6.4 - 8.4 10/21/2012 Normal [facility] CHEMISTRY Bili Total 0.5 0.2 - 1.3 10/21/2012 Normal [facility] CHEMISTRY Globulin 4.6 2.0 - 4.0 10/21/2012 [facility] CHEMISTRY B/C Ratio 7 6 - 25 10/21/2012 Normal [facility] CHEMISTRY AST 110 0 - 37 10/21/2012 [facility] CHEMISTRY A/G Ratio 0.7 0.7 - 1.6 10/21/2012 Normal [facility] CHEMISTRY ALT 86 0 - 65 10/21/2012 [facility] CHEMISTRY Alk Phos 64 39 - 136 10/21/2012 Normal [facility] CHEMISTRY Albumin Lvl 3.3 3.5 - 5.0 10/21/2012 LOW [facility] HEMATOLOGY Sed Rate 45 0 - 20 10/21/2012 [facility] HEMATOLOGY Plt Morph Normal (10/21/2012 09:00:00) 10/21/2012 Normal [facility] HEMATOLOGY RBC Morph Normal (10/21/2012 09:00:00) 10/21/2012 Normal [facility] IMMUNOLOGY HIV 1/2 Ab Negative *NA* (10/21/2012 09:00:00) Negative 10/21/2012 [facility] Microbiology Culture: Respiratory w/Gram Stain 10/21/2012 [facility] BACTERIAL - SEROLOGY U S pneumo Ag Negative (10/21/2012 05:30:21) Negative 10/21/2012 Normal [facility] [facility] MI[facility] MISC - SEROLOGY U Legion Ag Negative 1 (10/21/2012 05:30:21) Negative 10/21/2012 Normal <sup>1</sup>Interpretive Data: This kit tests for Legionella pneumophila Serogroup 1 Antigen. [facility] Microbiology Culture: Blood 10/21/2012 [facility] CHEMISTRY Lactic Acid Lvl 2.1 0.5 - 2.2 10/21/2012 Normal [facility] Microbiology Culture: Blood 10/21/2012 [facility] CHEMISTRY Temp Art 37.0 10/21/2012 [facility] CHEMISTRY Mode Art Rm Air (10/20/2012 23:24:00) 10/21/2012 Normal [facility] CHEMISTRY O2 Sat Art 94.4 95.0 - 100.0 10/21/2012 LOW [facility] CHEMISTRY HCO3 Art 26 22 - 26 10/21/2012 Normal [facility] CHEMISTRY BE Art 1 -2-2 - 2 10/21/2012 Normal [facility] CHEMISTRY pCO2 Art 40 35 - 45 10/21/2012 Normal [facility] CHEMISTRY pO2 Art 71 80 - 100 10/21/2012 LOW [facility] CHEMISTRY pH Art 7.42 7.35 - 7.45 10/21/2012 Normal [facility] CHEMISTRY CK MB Index <0.4 0.0 - 2.5 10/21/2012 Normal [facility] CHEMISTRY Troponin-I <0.02 0.00 - 0.40 10/21/2012 Normal [facility] CHEMISTRY B/C Ratio 8 6 - 25 10/21/2012 Normal [facility] CHEMISTRY Globulin 4.9 2.0 - 4.0 10/21/2012 HI [facility] CHEMISTRY A/G Ratio 0.7 0.7 - 1.6 10/21/2012 Normal [facility] CHEMISTRY AST 15 0 - 37 10/21/2012 Normal [facility] CHEMISTRY Alk Phos 55 39 - 136 10/21/2012 Normal [facility] CHEMISTRY ALT 39 0 - 65 10/21/2012 Normal [facility] CHEMISTRY Albumin Lvl 3.5 3.5 - 5.0 10/21/2012 Normal [facility] CHEMISTRY Bili Total 0.4 0.2 - 1.3 10/21/2012 Normal [facility] CHEMISTRY Total Protein 8.4 6.4 - 8.4 10/21/2012 Normal [facility] CHEMISTRY CK MB <0.5 0.5 - 3.6 10/21/2012 Normal [facility] CHEMISTRY Total CK 117 12 - 191 10/21/2012 Normal [facility] Pathology Reports No Data Provided for This Section Diagnostic Reports Report Value Date Source Calcaneous series EXAM: XR LEFT CALCANEUS 2 VIEWS DATE: 2013-06-19 15:52:00 INDICATION: foot pain COMPARISON: None available. TECHNIQUE: Lateral and axial views of the left calcaneus. FINDINGS: No fracture, dislocation or other acute bony abnormality is identified. Joint spaces and bone mineral density are preserved. Small calcaneal spur noted. No soft tissue abnormality is identified. IMPRESSION: No acute abnormality identified. 06/19/2013 MARYMarbella Castrejon Chest 2 views STUDY: Chest two-view examination DIAGNOSIS: No significant change since October 21 COMMENT: The heart is in the upper limits of normal. The thoracic aorta is tortuous and calcified. A focal area of parenchymal density is again seen in the infrahilar portion of the right lung. These most likely represents consolidation but it is not clear significantly in few days a CT scan of the chest should be obtained to rule out the possibility of a mass. SL: 10/24/2012 [facility] Chest 2 views Two views chest. HISTORY: Pneumonia. Comparison 10/20/2012. Right lower lobe opacity persists. Consider pneumonia. No pleural effusion. Heart size normal. SL: 10/21/2012 [facility] Chest 2 views EXAMINATION: Chest 2 views CLINICAL HISTORY: Cough and fever Since 10/16/2012, pulmonary inflation has decreased. Ill-defined right basilar opacity is suspicious for pneumonia. Short interval follow up imaging is recommended in order to document complete resolution and exclude underlying neoplasm. No pleural effusion or pneumothorax. The heart size is normal. No acute fracture, dislocation, or focal osseous lesion is appreciated. SL:10/20/2012 [facility] Consultation Notes No Data Provided for This Section Discharge Summaries No Data Provided for This Section History and Physicals No Data Provided for This Section Vital Signs Vital Sign Value Date Comments Source Height 152.4 cm 10/08/2016 [facility] Weight 112.727 10/08/2016 [facility] BMI Calculated 48.54 10/08/2016 [facility] Respitory Rate 20 10/24/2012 [facility] Diastolic (mm Hg) 89 10/24/2012 [facility] Systolic (mm Hg) 139 10/24/2012 [facility] Heart Rate 90 10/24/2012 [facility] Temperature Oral (F) 98.5 F 10/24/2012 [facility] Diastolic (mm Hg) 92 10/24/2012 [facility] Systolic (mm Hg) 153 10/24/2012 [facility] Respitory Rate 20 10/24/2012 [facility] Temperature Oral (F) 98.6 F 10/24/2012 [facility] Heart Rate 89 10/24/2012 [facility] Heart Rate 87 10/24/2012 [facility] Respitory Rate 20 10/24/2012 [facility] Temperature Oral (F) 98.4 F 10/24/2012 [facility] Diastolic (mm Hg) 88 10/24/2012 [facility] Systolic (mm Hg) 138 10/24/2012 [facility] Weight 104.119 10/21/2012 [facility] Height 152.4 cm 10/21/2012 [facility] Weight 106.818 10/21/2012 [facility] Height 152.4 cm 10/21/2012 [facility] Encounters Location Location Details Encounter Type Encounter Number Reason For Visit Attending Provider ADM Date DC Date Status Source [facility] Outpatient [id number] LEFT BREASTS CANCER 174.9, 611.0 SHAHE VARTIVARIAN 10/26/2011 10/26/2011 Active [facility] OD [id number] 466.0 - ACUTE BRONCHITI RADHA BELINDA 10/16/2012 Active [facility] Inpatient [id number] TALI EDWARDS 10/20/2012 10/24/2012 Discharged [facility] OP Therapy Patients [id number] Mihir Pantoja 10/16/2014 11/15/2014 [facility] OP Therapy Patients [id number] Mihir Pantoja 11/15/2014 12/15/2014 [facility] Outpatient [id number] Velasquez Lawanda 10/07/2016 10/08/2016 [facility] Bedded Outpatient [id number] Velasquez Lawanda 10/08/2016 10/08/2016 [facility] Outpatient [id number] Velasquez Lawanda 11/04/2016 11/05/2016 [facility] Outpatient [id number] Velasquez Lawanda 12/09/2016 12/10/2016 [facility] Outpatient [id number] Velasquez Lawanda 01/10/2017 01/11/2017 [facility] Procedures Procedure Code Date Perfomer Comments Source section [id number] [facility] TM,[facility] Cholecystectomy [id number] [facility], [facility] Hernia repair [id number] [facility], [facility] Mastectomy [id number] [facility], [facility] section [id number] [facility] Cholecystectomy [id number] [facility] Hernia repair [id number] [facility] Mastectomy [id number] [facility] Assessment and Plan No Data Provided for This Section Plan of Care No Data Provided for This Section Social History Social History Date Source Social History TypeResponse 01/11/2017 [facility] Social History TypeResponse 10/08/2016 [facility] Social History TypeResponse 12/15/2014 [facility] Family History No Data Provided for This Section Advance Directives No Data Provided for This Section Functional Status No Data Provided for This Section
--- OUTSIDE RECORDS SUMMARY | 2019-01-29 07:08 | XMS REPORT | Summary of Care ---
Author Organization Unknown Address Unknown Phone Unavailable Care Team Providers Care Library Aide Name Role Phone Eliud Perez PCP Encounter [facility] Yusef(EZIO) [id number] Date(s): 10/16/14 - 11/14/14 [facility] Discharge Disposition: Home Physician Attending: Mihir Pantoja [...]
--- OUTSIDE RECORDS SUMMARY | 2019-01-29 07:08 | XMS REPORT | CCD ---
Author Author Auto Generated Organization [facility] Outpatient Imaging [facility] Address Unknown Phone Unavailable Care Team Providers Care Labor Delivery Specialist Name Role Phone Raya Dominguez CP Eliud Perez PP Allergies, Adverse Reactions, Alerts Substance Reaction Status NKDA Active NKFA Active Problem List Condition Effective Dates Status Bilateral mastectomy 05/21/2010 Active Breast reconstruction with latissimus dorsi flap with 05/21/2010 Active implant Hypertension Active Hypothyroid Active
--- OUTSIDE RECORDS SUMMARY | 2019-01-29 07:08 | XMS REPORT | Summary of Care ---
Author Author [facility] Organization [facility] Address Unknown Phone Unavailable Encounter [facility] Yusef(EZIO) [id number] Date(s): 10/07/16 - 10/07/16 [facility] [address] [place] [address]- Discharge Disposition: Home or Self Care Attending Physician: Velasquez Webber MD Referring Physician: Velasquez Webber MD Vital Signs No data available for [...] No data available for this section Immunizations Given and Recorded Vaccine Date Status Refusal Reason pneumococcal 23-valent vaccine 10/24/12 Given Procedures Procedure Date Related Diagnosis Body Site section Cholecystectomy Hernia repair Mastectomy Social History Social History Type Response Assessment and Plan No data available for this section
--- OUTSIDE RECORDS SUMMARY | 2019-01-29 07:08 | XMS REPORT | Summary of Care ---
Author Author [facility] Organization [facility] Address Unknown Phone Unavailable Encounter GEENA Holbrook(EZIO) [id number] Date(s): 10/08/16 - 10/08/16 [facility] [address] [place] [address]- Discharge Disposition: Home or Self Care Attending Physician: Velasquez Webber MD Admitting Physician: Velasquez Webber MD Referring Physician: Velasquez Webber MD Vital Signs Most recent to 1 oldest [Reference Range]: Height 152.4 cm (10/08/16 11:14 AM) Weight 112.727 kg (10/08/16 11:14 AM) Body Mass Index 48.54 m2 (10/08/16 11:14 AM) Problem List Condition Effective Dates Status Health Status Informant Bilateral 05/21/10 Active mastectomy(Confirmed ) Breast Resolved cancer(Confirmed) Breast 05/21/10 Active reconstruction with latissimus dorsi flap with implant(Confirmed) Hypertension(Confirm Resolved ed) Hypertension(Confirm Active ed) Hypothyroid(Confirme Active d) Allergies, Adverse Reactions, Alerts Substance Reaction Severity Status NKDA Active NKFA Active Medications atorvastatin 80 mg oral tablet 80 mg=1 tab, PO, Daily, 0 Refill(s) Start Date: 10/08/16 Status: Ordered diltiazem 360 mg/24 hours oral capsule, extended release 360 mg=1 cap, PO, Daily, 0 Refill(s) Start Date: 10/08/16 Status: Ordered hydrochlorothiazide-lisinopril 12.5 mg-20 mg oral tablet 1 tab, PO, Daily, 0 Refill(s) Start Date: 10/08/16 Status: Ordered Zoloft 100 mg oral tablet 100 mg=1 tab, PO, Daily, 0 Refill(s) Start Date: 10/08/16 Status: Ordered Results No data available for this section Immunizations Given and Recorded Vaccine Date Status Refusal Reason pneumococcal 23-valent vaccine 10/24/12 Given Procedures Procedure Date Related Diagnosis Body Site section Cholecystectomy Hernia repair Mastectomy Social History Social History Type Response Assessment and Plan No data available for this section
--- OUTSIDE RECORDS SUMMARY | 2019-01-29 07:08 | XMS REPORT | Summary of Care ---
Author Author [facility] Organization [facility] Address Unknown Phone Unavailable Encounter HQ Yusef(EZIO) [id number] Date(s): 11/04/16 - 11/04/16 [facility] [address] [place] [address]- [phone] Discharge Disposition: Home or Self Care Attending [...]
--- OUTSIDE RECORDS SUMMARY | 2019-01-29 07:09 | XMS REPORT | Summary of Care ---
Author Author [facility] Organization [facility] Address Unknown Phone Unavailable Encounter HQ Yusef(EZIO) [id number] Date(s): 12/09/16 - 12/09/16 [facility] [address] [place] [address]- Discharge Disposition: Home or Self Care Attending [...]
--- OUTSIDE RECORDS SUMMARY | 2019-01-29 07:09 | XMS REPORT | Summary of Care ---
Author Author [facility] Organization [facility] Address Unknown Phone Unavailable Encounter HQ Bree_sarah(EZIO) [id number] Date(s): 01/10/17 - 01/10/17 [facility] [address] [place] [address]- Discharge Disposition: Home or Self Care Attending Physician: Velasquez Webber MD Vital Signs No [...]
[2019-01-29] MEDS ORDERED: CEFAZOLIN SOD 1 GM/NS 50ML 100 ML IV ONE (08:01)
[2019-01-29 08:14] LABS: BASOPHILS % 0.3 % (0.0-1.0); EOSINOPHILS % 0.1 % (0.0-6.0); HEMOGLOBIN 12.3 g/dL (12.0-16.0); LYMPHOCYTES # (AUTO) 2.2 (1.0-3.2); LYMPHOCYTES % 21.6 % (18.0-39.1); MEAN CORPUSCULAR HEMOGLOBIN 28.3 pg (28-32); MEAN CORPUSCULAR HGB CONC 32.4 g/dL (31-35); MEAN CORPUSCULAR VOLUME 87.6 fL (81-99); MONOCYTES # (AUTO) 0.7 (0.2-0.8); MONOCYTES % 7.1 % (4.4-11.3); NEUTROPHILS % 70.4 % (38.7-80.0); PLATELET COUNT 386 x10e3/uL (140-360); RED BLOOD COUNT 4.34 x10e6/uL (3.6-5.1); RED CELL DISTRIBUTION WIDTH 14.5 % (11.7-14.4)
[2019-01-29] MEDS ORDERED: BUPIVACAINE HCL 0.5% INJ 30 ML VIAL INJ ONE (09:10)
[2019-01-29] MEDS ORDERED: MORPHINE SULFATE 2 MG/ML SYR 1ML IV PRN (09:15)
--- OUTSIDE RECORDS SUMMARY | 2019-01-29 11:29 | XMS REPORT | Continuity of Care Document ---
Author Author [employer] Organization [employer] Address Unknown Phone Unavailable Care Team Providers Care Terminal Make Up Operator Name Role Phone 140 [employer] Unavailable Unavailable Problems Problem Status Onset Date Classification Date Reported Comments Source MORBID OBERSITY E66.01 Active 01/10/2017 [facility] E66.01 MORBID OBESITY Active 11/04/2016 [facility] [id number] Active 2016 [facility] ACUTE RLL PNEUMONIA Active 10/20/2012 [facility] BRONCHITIS Active 10/20/2012 [facility] 466.0 - ACUTE BRONCHITI Active 10/13/2012 [facility] LEFT BREASTS CANCER 174.9, 611.0 Active 10/25/2011 [facility] Bilateral mastectomy Active 05/21/2010 Problem 10/26/2012 [facility] Breast reconstruction with latissimus dorsi flap with implant Active 05/21/2010 Problem [facility] Bilateral mastectomy (procedure) Active 05/21/2010 Problem 01/13/2017 [facility] Breast reconstruction with latissimus dorsi flap with implant (procedure) Active 05/21/2010 Problem 01/13/2017 [facility] Hypertension Resolved Problem 10/26/2012 [facility] Hypothyroid Active Problem 10/26/2012 [facility] Malignant tumor of breast (disorder) Resolved Problem 01/13/2017 [facility] Hypertensive disorder, systemic arterial (disorder) Resolved Problem 01/13/2017 [facility] Hypothyroidism (disorder) Active Problem 01/13/2017 [facility] Breast cancer Resolved Problem 10/26/2012 [facility] PNEUMONIA, ORGANISM NOS Active [facility] RT KNEE PAIN Active [facility] JOINT DIS NOS-L/LEG Active [facility] MORBID (SEVERE) OBESITY DUE TO EXCESS CA Active [place] Medications Medication Details Route Status Patient Instructions Ordering Provider Order Date Source diltiazem 360 mg/24 hours oral capsule, extended release 360 mg=1 cap, PO, Daily, 0 Refill(s) Active 10/08/2016 [facility] atorvastatin 80 mg oral tablet 80 mg=1 tab, PO, Daily, 0 Refill(s) Active 10/08/2016 [facility] Sertraline 100 MG Oral Tablet [Zoloft] 100 mg=1 tab, PO, Daily, 0 Refill(s) Active 10/08/2016 [facility] Hydrochlorothiazide 12.5 MG / Lisinopril 20 MG Oral Tablet 1 tab, PO, Daily, 0 Refill(s) Active 10/08/2016 [facility] pneumococcal 23-valent vaccine 0.5 ml, Route: IM, ONCALL, Start date: 10/24/12 15:27:17, Stop date: 11/23/12 15:22:17 Inactive SYSTEM 10/24/2012 [facility] Robitussin-DM 10 mL, Route: PO, Drug Form: LIQ, Q6H-02, Start date: 10/23/12 20:00:00, Duration: 30 day, Stop date: 11/22/12 14:00:00 PO No [facility]er [facility]2012 [facility] Tessalon Perles 200 mg, 2 cap, Route: PO, Drug form: CAP, TID, Start date: 10/23/12 19:22:00, Duration: 30 day, Stop date: 11/22/12 17:00:00 PO No Longer Active [facility] 10/24/2012 [facility] predniSONE 40 mg, 2 tab, Route: PO, Drug form: TAB, Daily, Start date: 10/23/12 9:00:00, Duration: 30 day, Stop date: 11/21/12 9:00:00 PO No Longer Active Jason 10/23/2012 [facility] Robitussin-DM 10 mL, Route: PO, Drug Form: LIQ, Q6H, PRN Cough, Start date: 10/22/12 20:00:00, Duration: 30 day, Stop date: 11/21/12 19:59:00 PO No Longer Active [facility] 10/23/2012 [facility] Robitussin-DM 10 mL, Route: PO, Drug Form: LIQ, ONCE, Start date: 10/22/12 14:00:00, Stop date: 10/22/12 14:00:00 PO No Longer Active [facility] 10/22/2012 [facility] lactulose 15 gm, 22.5 mL, Route: PO, Drug form: SYRP, ONCE, Start date: 10/22/12 13:34:00, Stop date: 10/22/12 13:34:00 PO No Longer Active [facility] 10/22/2012 [facility] Cymbalta 60 mg, 1 cap, Route: PO, Drug form: DRC, Daily, Start date: 10/22/12 9:00:00, Duration: 30 day, Stop date: 11/20/12 9:00:00 PO No Longer Active [facility] 10/22/2012 [facility] levofloxacin 750 mg, 1 tab, Route: PO, Drug form: TAB, Q24H, Start date: 10/22/12 2:00:00, Duration: 30 day, Stop date: 11/20/12 2:00:00 PO No Longer Active [facility] 10/22/2012 [facility] methylPREDNISolone 125 mg, 2 mL, Route: IV, Drug form: INJ, Q24H, Start date: 10/22/12 0:00:00, Duration: 30 day, Stop date: 11/20/12 0:00:00 IV No Longer Active [facility] 10/22/2012 [facility] budesonide-formoterol 160 mcg-4.5 mcg/inh inhalation aerosol with adapter 1 inhalation, Route: INHALATION, Drug Form: AERO/A, RBID, Start date: 10/21/12 20:00:00, Duration: 30 day, Stop date: 11/20/12 8:00:00 INHALATION No Longer Active [facility] 10/22/2012 [facility] Norvasc 10 mg, 1 tab, Route: PO, Drug form: TAB, Q24H, Start date: 10/21/12 13:00:00, Duration: 30 day, Stop date: 11/19/12 13:00:00 PO No Longer Active [facility] 10/21/2012 [facility] Sodium Chloride 0.9% IV 1,000 mL 1,000 mL, Rate: 50 ml/hr, Infuse over: 20 hr, Route: IV, Dosing Weight 104.119 kg, Total Volume: 1,000, Start date: 10/21/12 12:44:00, Duration: 1 doses or times, Stop date: 10/22/12 8:43:00 IV No Longer Active [facility] 10/21/2012 [facility] Lovenox 40 mg, 0.4 mL, Route: SUB-Q, Drug form: INJ, Daily, Start date: 10/21/12 9:00:00, Duration: 30 day, Stop date: 11/19/12 9:00:00 SUB-Q No Longer Active [facility] 10/21/2012 [facility] Pepcid 20 mg, 1 tab, Route: PO, Drug form: TAB, Q12H, Start date: 10/21/12 9:00:00, Duration: 30 day, Stop date: 11/19/12 21:00:00 PO No Longer Active [facility] 10/21/2012 [facility] Levaquin 750 mg, 150 mL, Route: IV, Drug form: SOLN, ONCE, Start date: 10/21/12 2:15:00, Stop date: 10/21/12 2:15:00 IV No Longer Active [facility] 10/21/2012 [facility] DuoNeb inhalation solution 3 mL, Route: NEB, Drug Form: SOLN, RQ6H, PRN Wheezing, Start date: 10/21/12 1:54:00, Duration: 30 day, Stop date: 11/20/12 1:53:00 NEB No Longer Active [facility] 10/21/2012 [facility] Robitussin 200 mg, 10 mL, Route: PO, Drug form: SYRP, Q4H, PRN Cough, Start date: 10/21/12 1:51:00, Duration: 30 day, Stop date: 11/20/12 1:50:00 PO No Longer Active [facility] 10/21/2012 [facility] Sodium Chloride 0.9% IV 250 mL, Route: IVPB, Start date: 10/21/12 1:51:00, Duration: 30 day, Stop date: 11/20/12 1:50:00, PRN Line Flush IVPB No Longer Active [facility] 10/21/2012 [facility] BD Normal Saline Flush 10 mL, Route: IVP, Drug Form: INJ, PRN, PRN Line Flush, Start date: 10/21/12 1:51:00, Duration: 30 day, Stop date: 11/20/12 1:50:00 IVP No Longer Active [facility] 10/21/2012 [facility] SoluMedrol 125 mg, Route: IV, ONCE, Dosing Weight 106.818, kg, Start date: 10/21/12 0:56:00, Stop date: 10/21/12 0:56:00 IV No Longer Active [facility] 10/21/2012 [facility] vancomycin 1 gm, 200 mL, Route: IVPB, Drug form: INJ, ONCE, Dosing Weight 106.818, kg, Priority: STAT, Start date: 10/20/12 23:24:00, Stop date: 10/20/12 23:24:00 IVPB No Longer Active Lagisetim 10/21/2012 [facility] cefepime + Sodium Chloride 0.9% IV 100 mL 2 gm, Route: IVPB, Drug form: INJ, ONCE, Dosing Weight 106.818, kg, Priority: STAT, Start date: 10/20/12 23:24:00, Stop date: 10/20/12 23:24:00 IVPB No Longer Active [facility]ise10/21/2012 [facility] [place] 5/325 oral tablet 1 tab, Route: PO, Drug Form: TAB, Dosing Weight 106.818, kg, ONCE, Start date: 10/20/12 23:11:00, Stop date: 10/20/12 23:11:00 PO No Longer Active Lagisetty 10/21/2012 [facility] ibuprofen 800 mg, 1 tab, Route: PO, Drug form: TAB, ONCE, Dosing Weight 106.818, kg, Priority: STAT, Start date: 10/20/12 23:11:00, Stop date: 10/20/12 23:11:00 PO No Longer Active Lagisey 10/21/2012 [facility] ibuprofen 600 mg, 1 tab, Route: PO, Drug form: TAB, ONCE, Dosing Weight 106.818, kg, Priority: STAT, Start date: 10/20/12 23:08:00, Stop date: 10/20/12 23:08:00 PO No Longer Active Lagisetty 10/21/2012 [facility] [place] 5/325 oral tablet 1 tab, Route: PO, Drug Form: TAB, Dosing Weight 106.818, kg, ONCE, STAT, Start date: 10/20/12 23:08:00, Stop date: 10/20/12 23:08:00 PO No Longer Active Poppyise10/21/2012 [facility] ipratropium 0.5 mg, 2.5 mL, Route: NEB, Drug form: SOLN, Q15Min, Dosing Weight 106.818, kg, Priority: STAT, Start date: 10/20/12 22:12:00, Duration: 2 doses or times, Stop date: 10/20/12 22:27:00 NEB No Longer Active Vernontim 10/21/2012 [facility] albuterol 0.083% inhalation solution 2.49 mg, 3 mL, Route: NEB, Drug form: SOLN, Q15Min, Dosing Weight 106.818, kg, Priority: STAT, Start date: 10/20/12 22:12:00, Duration: 2 doses or times, Stop date: 10/20/12 22:27:00 NEB No Longer Active Vernontim 10/21/2012 [facility] Allergies, Adverse Reactions, Alerts Substance Category Reaction Severity Reaction type Status Date Reported Comments Source NKFA Assertion Drug allergy Active [facility] Immunizations Immunization Date Given Site Status Last Updated Comments Source pneumococcal 23-valent vaccine 10/24/2012 Left Deltoid completed Anu [facility] pneumococcal 23-valent vaccine 10/24/2012 completed Anu [facility] Results Order Name Results Value Reference Range [...] should be multiplied by the estimated BMI. [facility] CHEMISTRY Creatinine Lvl 0.8 0.5 - 1.4 10/24/2012 Normal [facility] CHEMISTRY Sodium Lvl 141 135 - 145 10/24/2012 Normal [facility] CHEMISTRY Glucose Lvl 65 70 - 99 10/24/2012 LOW <sup>5</sup>Interpretive Data: Adult reference range values reflect the clinical guidelines
of the [place] [employer]. [facility] CHEMISTRY Potassium Lvl 3.7 3.5 - 5.1 10/24/2012 Normal [facility] CHEMISTRY AGAP 13.7 10.0 - 20.0 10/24/2012 Normal [facility] CHEMISTRY Calcium Lvl 8.6 8.5 - 10.5 10/24/2012 Normal [facility] CHEMISTRY Chloride Lvl 104 95 - 109 10/24/2012 Normal [facility] CHEMISTRY BUN 19 7 - 22 10/24/2012 Normal [facility] CHEMISTRY CO2 27 24 - 32 10/24/2012 Normal [facility] HEMATOLOGY WBC 11.6 3.7 - 10.4 10/24/2012 HI [facility] HEMATOLOGY MCV 84.4 81.0 - 99.0 10/24/2012 Normal [facility] HEMATOLOGY Hct 33.0 36.0 - 48.0 10/24/2012 LOW [facility] HEMATOLOGY Hgb 10.9 12.0 - 16.0 10/24/2012 LOW [facility] HEMATOLOGY RBC 3.90 4.20 - 5.40 10/24/2012 LOW [facility] HEMATOLOGY MPV 8.2 7.4 - 10.4 10/24/2012 Normal [facility] HEMATOLOGY Platelet 384 133 - 450 10/24/2012 Normal [facility] HEMATOLOGY MCHC 32.9 32.0 - 36.0 10/24/2012 Normal [facility] HEMATOLOGY MCH 27.8 27.0 - 31.0 10/24/2012 Normal [facility] HEMATOLOGY RDW 15.2 11.5 - 14.5 10/24/2012 [facility] HEMATOLOGY Polychrom Slight (10/24/2012 05:10:00) None Seen 10/24/2012 Normal [facility] HEMATOLOGY Lymphocytes 20.5 20.0 - 40.0 10/24/2012 Normal [facility] HEMATOLOGY Eosinophils 0.0 0.0 - 4.0 10/24/2012 Normal [facility] HEMATOLOGY Basophils 0.3 0.0 - 1.0 10/24/2012 Normal [facility] HEMATOLOGY Monocytes 8.7 2.0 - 12.0 10/24/2012 Normal [facility] HEMATOLOGY Segs 70.5 45.0 - 75.0 10/24/2012 Normal [facility] HEMATOLOGY Segs-Bands # 8.2 1.5 - 8.1 10/24/2012 HI [facility] HEMATOLOGY Lymphocytes # 2.4 1.0 - 5.5 10/24/2012 Normal [facility] HEMATOLOGY Monocytes # 1.0 0.0 - 0.8 10/24/2012 HI [facility] HEMATOLOGY Eosinophils # 0.0 0.0 - 0.5 10/24/2012 Normal [facility] HEMATOLOGY Basophils # 0.0 0.0 - 0.2 10/24/2012 Normal [facility] CHEMISTRY eGFR 77 10/23/2012 NA <sup>3</sup>Result Comment: [...] should be multiplied by the estimated BMI. [facility] CHEMISTRY Sodium Lvl 140 135 - 145 10/23/2012 Normal [facility] CHEMISTRY Glucose Lvl 110 70 - 99 10/23/2012 [place] <sup>6</sup>Interpretive Data: Adult reference range values reflect the clinical guidelines
of the [place] [employer]. [facility] CHEMISTRY Creatinine Lvl 1.0 0.5 - 1.4 10/23/2012 Normal [facility] CHEMISTRY BUN 24 7 - 22 10/23/2012 HI [facility] CHEMISTRY Calcium Lvl 9.1 8.5 - 10.5 10/23/2012 Normal [facility] CHEMISTRY Potassium Lvl 3.7 3.5 - 5.1 10/23/2012 Normal [facility] CHEMISTRY CO2 21 24 - 32 10/23/2012 LOW [facility] CHEMISTRY Chloride Lvl 105 95 - 109 10/23/2012 Normal [facility] CHEMISTRY AGAP 17.7 10.0 - 20.0 10/23/2012 Normal [facility] HEMATOLOGY Basophils 0.0 0.0 - 1.0 10/23/2012 [facility] HEMATOLOGY Eosinophils 0.0 0.0 - 4.0 10/23/2012 [facility] HEMATOLOGY Monocytes 5.7 2.0 - 12.0 10/23/2012 [facility] HEMATOLOGY Lymphocytes 8.1 20.0 - 40.0 10/23/2012 [facility] HEMATOLOGY Segs 86.2 45.0 - 75.0 10/23/2012 [facility] HEMATOLOGY Basophils # 0.0 0.0 - 0.2 10/23/2012 Normal [facility] HEMATOLOGY Eosinophils # 0.0 0.0 - 0.5 10/23/2012 [facility] HEMATOLOGY Monocytes # 1.1 0.0 - 0.8 10/23/2012 [facility] HEMATOLOGY Lymphocytes # 1.5 1.0 - 5.5 10/23/2012 [facility] HEMATOLOGY Segs-Bands # 16.3 1.5 - 8.1 10/23/2012 [facility] HEMATOLOGY MPV 7.9 7.4 - 10.4 10/23/2012 [facility] HEMATOLOGY Platelet 394 133 - 450 10/23/2012 [facility] HEMATOLOGY RDW 15.4 11.5 - 14.5 10/23/2012 [facility] HEMATOLOGY MCHC 33.1 32.0 - 36.0 10/23/2012 [facility] HEMATOLOGY MCH 27.8 27.0 - 31.0 10/23/2012 [facility] HEMATOLOGY MCV 84.0 81.0 - 99.0 10/23/2012 Normal [facility] HEMATOLOGY Hct 35.4 36.0 - 48.0 10/23/2012 [facility] HEMATOLOGY Hgb 11.7 12.0 - 16.0 10/23/2012 [facility] HEMATOLOGY RBC 4.21 4.20 - 5.40 10/23/2012 [facility] HEMATOLOGY WBC 19.0 3.7 - 10.4 10/23/2012 [facility] CHEMISTRY Hgb A1C 5.7 10/22/2012 NA <sup>8</sup>Interpretive [...] 240 Poor Control, take action to lower [facility] CHEMISTRY Magnesium Lvl 2.1 1.8 - 2.4 10/22/2012 Normal [facility] CHEMISTRY eGFR 116 10/22/2012 NA <sup>4</sup>Result Comment: [...] should be multiplied by the estimated BMI. [facility] CHEMISTRY Potassium Lvl 4.5 3.5 - 5.1 10/22/2012 Normal [facility] CHEMISTRY Sodium Lvl 142 135 - 145 10/22/2012 Normal [facility] CHEMISTRY Creatinine Lvl 0.7 0.5 - 1.4 10/22/2012 Normal [facility] CHEMISTRY Chloride Lvl 103 95 - 109 10/22/2012 Normal [facility] CHEMISTRY Glucose Lvl 121 70 - 99 10/22/2012 [place] <sup>7</sup>Interpretive Data: Adult reference range values reflect the clinical guidelines
of the [place] [employer]. [facility] CHEMISTRY Alk Phos 47 39 - 136 10/22/2012 Normal [facility] CHEMISTRY BUN 14 7 - 22 10/22/2012 Normal [facility] CHEMISTRY ALT 56 0 - 65 10/22/2012 Normal [facility] CHEMISTRY CO2 21 24 - 32 10/22/2012 LOW [facility] CHEMISTRY Albumin Lvl 3.3 3.5 - 5.0 10/22/2012 LOW [facility] CHEMISTRY AGAP 22.5 10.0 - 20.0 10/22/2012 [facility] CHEMISTRY Total Protein 7.9 6.4 - 8.4 10/22/2012 Normal [facility] CHEMISTRY Globulin 4.6 2.0 - 4.0 10/22/2012 [facility] CHEMISTRY B/C Ratio 20 6 - 25 10/22/2012 Normal [facility] CHEMISTRY Bili Total 0.4 0.2 - 1.3 10/22/2012 Normal [facility] CHEMISTRY Calcium Lvl 9.1 8.5 - 10.5 10/22/2012 Normal [facility] CHEMISTRY AST 32 0 - 37 10/22/2012 Normal [facility] CHEMISTRY A/G Ratio 0.7 0.7 - 1.6 10/22/2012 Normal [facility] HEMATOLOGY MCH 28.1 27.0 - 31.0 10/22/2012 Normal [facility] HEMATOLOGY MCV 84.2 81.0 - 99.0 10/22/2012 Normal [facility] HEMATOLOGY RBC 4.28 4.20 - 5.40 10/22/2012 Normal [facility] HEMATOLOGY Hgb 12.1 12.0 - 16.0 10/22/2012 [facility] HEMATOLOGY Hct 36.1 36.0 - 48.0 10/22/2012 Normal [facility] HEMATOLOGY MPV 8.5 7.4 - 10.4 10/22/2012 Normal [facility] HEMATOLOGY MCHC 33.5 32.0 - 36.0 10/22/2012 Normal [facility] HEMATOLOGY RDW 15.0 11.5 - 14.5 10/22/2012 [facility] HEMATOLOGY Platelet 375 133 - 450 10/22/2012 Normal [facility] HEMATOLOGY WBC 14.7 3.7 - 10.4 10/22/2012 [facility] HEMATOLOGY Eosinophils 0.0 0.0 - 4.0 10/22/2012 Normal [facility] HEMATOLOGY Segs 88.9 45.0 - 75.0 10/22/2012 [facility] HEMATOLOGY Lymphocytes 9.5 20.0 - 40.0 10/22/2012 LOW [facility] HEMATOLOGY Monocytes 1.5 2.0 - 12.0 10/22/2012 LOW [facility] HEMATOLOGY Lymphocytes # 1.4 1.0 - 5.5 10/22/2012 Normal [facility] HEMATOLOGY Monocytes # 0.2 0.0 - 0.8 10/22/2012 Normal [facility] HEMATOLOGY Eosinophils # 0.0 0.0 - 0.5 10/22/2012 Normal [facility] HEMATOLOGY Basophils 0.1 0.0 - 1.0 10/22/2012 Normal [facility] HEMATOLOGY Segs-Bands # 13.1 1.5 - 8.1 10/22/2012 HI [facility] HEMATOLOGY Basophils # 0.0 0.0 - 0.2 10/22/2012 Normal [facility] CHEMISTRY Total Protein 7.9 6.4 - 8.4 10/21/2012 Normal [facility] CHEMISTRY Bili Total 0.5 0.2 - 1.3 10/21/2012 Normal [facility] CHEMISTRY Globulin 4.6 2.0 - 4.0 10/21/2012 [facility] CHEMISTRY B/C Ratio 7 6 - 25 10/21/2012 Normal [facility] CHEMISTRY AST 110 0 - 37 10/21/2012 [facility] CHEMISTRY A/G Ratio 0.7 0.7 - 1.6 10/21/2012 Normal [facility] CHEMISTRY ALT 86 0 - 65 10/21/2012 [facility] CHEMISTRY Alk Phos 64 39 - 136 10/21/2012 Normal [facility] CHEMISTRY Albumin Lvl 3.3 3.5 - 5.0 10/21/2012 LOW [facility] HEMATOLOGY Sed Rate 45 0 - 20 10/21/2012 [facility] HEMATOLOGY Plt Morph Normal (10/21/2012 09:00:00) 10/21/2012 Normal [facility] HEMATOLOGY RBC Morph Normal (10/21/2012 09:00:00) 10/21/2012 Normal [facility] IMMUNOLOGY HIV 1/2 Ab Negative *NA* (10/21/2012 09:00:00) Negative 10/21/2012 [facility] Microbiology Culture: Respiratory w/Gram Stain 10/21/2012 [facility] BACTERIAL - SEROLOGY U S pneumo Ag Negative (10/21/2012 05:30:21) Negative 10/21/2012 Normal [facility] MICRO MISC - SEROLOGY U Legion Ag Negative 1 (10/21/2012 05:30:21) Negative 10/21/2012 Normal <sup>1</sup>Interpretive Data: This kit tests for Legionella pneumophila Serogroup 1 Antigen. [facility] Microbiology Culture: Blood 10/21/2012 [facility] CHEMISTRY Lactic Acid Lvl 2.1 0.5 - 2.2 10/21/2012 Normal [facility] Microbiology Culture: Blood 10/21/2012 [facility] CHEMISTRY Temp Art 37.0 10/21/2012 [facility] CHEMISTRY Mode Art Rm Air (10/20/2012 23:24:00) 10/21/2012 Normal [facility] CHEMISTRY O2 Sat Art 94.4 95.0 - 100.0 10/21/2012 LOW [facility] CHEMISTRY HCO3 Art 26 22 - 26 10/21/2012 Normal [facility] CHEMISTRY BE Art 1 -2-2 - 2 10/21/2012 Normal [facility] CHEMISTRY pCO2 Art 40 35 - 45 10/21/2012 Normal [facility] CHEMISTRY pO2 Art 71 80 - 100 10/21/2012 LOW [facility] CHEMISTRY pH Art 7.42 7.35 - 7.45 10/21/2012 Normal [facility] CHEMISTRY CK MB Index <0.4 0.0 - 2.5 10/21/2012 Normal [facility] CHEMISTRY Troponin-I <0.02 0.00 - 0.40 10/21/2012 Normal [facility] CHEMISTRY B/C Ratio 8 6 - 25 10/21/2012 Normal [facility] CHEMISTRY Globulin 4.9 2.0 - 4.0 10/21/2012 HI [facility] CHEMISTRY A/G Ratio 0.7 0.7 - 1.6 10/21/2012 Normal [facility] CHEMISTRY AST 15 0 - 37 10/21/2012 Normal [facility] CHEMISTRY Alk Phos 55 39 - 136 10/21/2012 Normal [facility] CHEMISTRY ALT 39 0 - 65 10/21/2012 Normal [facility] CHEMISTRY Albumin Lvl 3.5 3.5 - 5.0 10/21/2012 Normal [facility] CHEMISTRY Bili Total 0.4 0.2 - 1.3 10/21/2012 Normal [facility] CHEMISTRY Total Protein 8.4 6.4 - 8.4 10/21/2012 Normal [facility] CHEMISTRY CK MB <0.5 0.5 - 3.6 10/21/2012 Normal [facility] CHEMISTRY Total CK 117 12 - 191 10/21/2012 Normal [facility] Pathology Reports No Data Provided for This [...] the possibility of a mass. SL: 10/24/2012 [facility] Chest 2 views Two views chest. HISTORY: Pneumonia. Comparison 10/20/2012. Right lower lobe opacity persists. Consider pneumonia. No pleural effusion. Heart size normal. SL: 10/21/2012 [facility] Chest 2 views EXAMINATION: Chest 2 views [...] or focal osseous lesion is appreciated. SL:10/20/2012 [facility] Consultation Notes No Data Provided for This Section Discharge Summaries No Data Provided for This Section History and Physicals No Data Provided for This Section Vital Signs Vital Sign Value Date Comments Source Height 152.4 cm 10/08/2016 [facility] Weight 112.727 10/08/2016 [facility] BMI Calculated 48.54 10/08/2016 [facility] Respitory Rate 20 10/24/2012 [facility] Diastolic (mm Hg) 89 10/24/2012 [facility] Systolic (mm Hg) 139 10/24/2012 [facility] Heart Rate 90 10/24/2012 [facility] Temperature Oral (F) 98.5 F 10/24/2012 [facility] Diastolic (mm Hg) 92 10/24/2012 [facility] Systolic (mm Hg) 153 10/24/2012 [facility] Respitory Rate 20 10/24/2012 [facility] Temperature Oral (F) 98.6 F 10/24/2012 [facility] Heart Rate 89 10/24/2012 [facility] Heart Rate 87 10/24/2012 [facility] Respitory Rate 20 10/24/2012 [facility] Temperature Oral (F) 98.4 F 10/24/2012 [facility] Diastolic (mm Hg) 88 10/24/2012 [facility] Systolic (mm Hg) 138 10/24/2012 [facility] Weight 104.119 10/21/2012 [facility] Height 152.4 cm 10/21/2012 [facility] Weight 106.818 10/21/2012 [facility] Height 152.4 cm 10/21/2012 [facility] Encounters Location Location Details Encounter Type Encounter Number Reason For Visit Attending Provider ADM Date DC Date Status Source [facility] Outpatient [id number] LEFT BREASTS CANCER 174.9, 611.0 SHAHE VARTIVARIAN 10/26/2011 10/26/2011 Active [facility] OD [id number] 466.0 - ACUTE BRONCHITI RADHA BELINDA 10/16/2012 Active OPID [facility] Inpatient [id number] TALI EDWARDS 10/20/2012 10/24/2012 Discharged [facility] OP Therapy Patients [id number] Mihir Pantoja 10/16/2014 11/15/2014 [facility] OP Therapy Patients [id number] Mihir Pantoja 11/15/2014 12/15/2014 [facility] Outpatient [id number] Velasquez Lawanda 10/07/2016 10/08/2016 [facility] Bedded Outpatient [id number] Velasquez Lawanda 10/08/2016 10/08/2016 [facility] Outpatient [id number] Velasquez Lawanda 11/04/2016 11/05/2016 [facility] Outpatient [id number] Velasquez Lawanda 12/09/2016 12/10/2016 [facility] Outpatient [id number] Velasquez Lawanda 01/10/2017 01/11/2017 [facility] Procedures Procedure Code Date Perfomer Comments Source section [id number] [facility] TM,[facility] Cholecystectomy [id number] [facility], [facility] Hernia repair [id number] [facility], [facility] Mastectomy [id number] [facility] section [id number] [facility] Cholecystectomy [id number] [facility] Hernia repair [id number] [facility] Mastectomy [id number] [facility] Assessment and Plan No Data Provided for This Section Plan of Care No Data Provided for This Section Social History Social History Date Source Social History TypeResponse 01/11/2017 [facility] Social History TypeResponse 10/08/2016 [facility] Social History TypeResponse 12/15/2014 [facility] Family History No Data Provided for This Section Advance Directives No Data Provided for This Section Functional Status No Data Provided for This Section
--- OUTSIDE RECORDS SUMMARY | 2019-01-29 11:29 | XMS REPORT | Clinical Summary ---
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
--- NOTE | 2019-01-29 11:32 | Operative Report ---
DATE OF PROCEDURE: 01/29/2019 SURGEON: Gaston Haskins MD PREOPERATIVE DIAGNOSES: 1. Morbid obesity, BMI 50. 2. Hypertension. POSTOPERATIVE DIAGNOSES: 1. Morbid obesity, BMI 50. 2. Hypertension. PREOPERATIVE INDICATION: Treat disease, prevent complications related to comorbid conditions of obesity. PROCEDURES: 1. Laparoscopic vertical sleeve gastrectomy (CPT 94346). 2. Placement of Human connective tissue allograft (CPT 07540). ANESTHESIA: General. CORN BREEDER: Abdi Carrasco, surgical scrub tech (needed due to complexity of case). FLUIDS: 800 mL crystalloid. ESTIMATED BLOOD LOSS: 20 mL. DRAINS: None. COMPLICATIONS: None. GRAFTS: None. FINDINGS: 1. Normal upper GI anatomy. 2. Negative intraoperative EGD leak test. SPECIMENS: Partial stomach. PROCEDURE IN DETAIL: The patient was brought to the operating room and was intubated under general endotracheal anesthesia. She was sterilely prepped and draped in the usual fashion. A preprocedure pause was performed identifying the patient, use of perioperative antibiotics, intended procedure, and staff surgeon. Access was gained via a 5 mm left subcostal incision using a Veress needle. Abdomen insufflated to a pressure of 15 mmHg pressure. Four additional trocars were placed in standard position. Liver retractor was used to expose the stomach. The greater curvature of stomach was mobilized from 4 cm proximal to the pyloric valve to the left jonas of the diaphragm. Using the [place] LigaSure device, an adult-sized endoscope was placed along the lesser curvature of the stomach to be used as a bougie. The greater curvature of stomach was resected with multiple firings of a purple load 60 mm Endo-ARI stapling device. The specimen was removed through the right periumbilical port site. The port site was closed with 0 Vicryl suture using a David Onofre technique in a [id number] fashion. Conducted an intraoperative EGD leak test, no leaks were identified. We then desufflated the abdomen, removed the trocars after confirming hemostasis. Incision sites were closed with 4-0 Monocryl suture in a subcuticular fashion. Dermabond dressings were applied. An 8 mL of the Human connective allograft was used at the incision sites for wound healing purposes. A 0.5% bupivacaine, 30 mL was used both at the preperitoneal incision site. The patient tolerated the procedure well. Type of wound is type 2, clean and contaminated. MD UBALDO Turcios/EDMOND /[id number]
--- NOTE | 2019-01-29 14:03 | NUR ---
RECEIVED REPORT FROM PACU AWAITING FOR PT TO ARRIVE TO FLOOR
[2019-01-29 14:04] VITALS: BP 108/66
--- NOTE | 2019-01-29 14:04 | NUR ---
RECEIVED PT TO FLOOR AA0X3 PT DENIES PAIN AT THIS TIME SURGICAL ABDOMINAL SITES ARE CLEAN AND DRY PT HAS A LEFT AC 20 WITH LR RUNNING .SITE IS CLEAN AND DRY ASSISTED PT TO TOILED, VOIDED INTO TOILET AT THIS TIME PLACED PT ON O2 3L FOR LOW SATS OF 85%. PT SAT 95% ON 3L ALL OTHER V.S STABLE WILL CONTINUE TO MONITOR PT CLOSELY SIDE RAILSX2, BED WHEELS LOCKED ,CALL LIGHT IS WITHIN EASY REACH, INSTRUCTED TO CALL FOR ASSISTANCE IF NEEDED
[2019-01-29] MEDS: SODIUM CHLORIDE 0.9% 1000ML 1,000 ML IV SCH ×2 (14:53→17:01)
[2019-01-29] MEDS: SCOPOLAMINE 1.5 MG PATCH TOP SCH (14:53)
[2019-01-29] MEDS: ONDANSETRON HCL INJ 2MG/ML 2ML 2 MG/ML VIAL IV PRN (16:26)
--- NOTE | 2019-01-29 17:44 | History and Physical ---
CHIEF COMPLAINT: "I have weight loss surgery." HISTORY OF PRESENT ILLNESS: This is a 58-year-old woman, who was admitted to [facility] today with diagnosis of extreme obesity, complicated underlying hypertension and hyperlipidemia. Today, the patient underwent successful laparoscopic vertical sleeve gastrectomy that was performed by her bariatric surgeon namely Dr. Gaston Haskins. The patient underwent a negative intraoperative EGD leak test while in the operating room. The patient tolerated surgery quite well. The patient voiced no complaints other than irritation in her trachea. According to nursing staff, she did vomit earlier and it appeared to be blood tinged. The patient states she does not have history of peptic ulcer disease. Blood work done today prior to surgery revealed a hemoglobin of 12.3 g/dL. REVIEW OF SYSTEMS: GENERAL: She has lost 10 pounds prior to surgery intentionally. No fever or chills. HEENT: No headaches. No visual changes. CARDIOVASCULAR/RESPIRATORY: No chest pain or short of breath. She did complain of cough and had some blood tinged and scant hemoptysis today after surgery. GI: The patient did have some posttussive emesis today after surgery that was blood tinged. The patient feels that she was coughing blood, not necessarily vomiting blood. Denies any melena, hematochezia. : Denies any hematuria. Denies any UTI symptoms. NEUROMUSCULAR: No limb weakness or numbness. ALLERGIES: NAPROXEN. PAST MEDICAL HISTORY: 1. Hypertensive heart disease. 2. Hyperlipidemia. 3. Allergies rhinitis. 4. Extreme obesity complicating underlying hypertension. PAST SURGICAL HISTORY: 1. Laparoscopic vertical sleeve gastrectomy today. 2. Laparoscopic cholecystectomy. 3. section. 4. Total abdominal hysterectomy, bilateral salpingo-oophorectomy. 5. Left foot surgery. FAMILY HISTORY: Multiple siblings with hypertension. SOCIAL HISTORY: This woman is , lives with her . 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 No history of tobacco or alcohol use. HOME MEDICATIONS: 1. Atorvastatin 80 mg at bedtime. 2. Diltiazem 360 mg daily. 3. Lisinopril 2.5 mg daily. 4. Sertraline 100 mg at bedtime. PHYSICAL EXAMINATION: GENERAL. She is somnolent, but arousable. She is very pleasant. She does not appear to be in any distress. VITAL SIGNS: Height 5 feet 0 inches, weight 265 pounds, BMI 51. Blood pressure is 106/64, pulse 64, respiratory rate is 18, ox saturation is 94% on 3 L oxygen, temperature is 96.3. INTEGUMENT: Skin is warm and dry. No pallor, jaundice or diaphoresis. HEENT: Anterior sclerae. Moist mucous membranes. NECK: Supple. CARDIOVASCULAR: Regular rate and rhythm. LUNGS: No rales. No rhonchi. No wheezes. ABDOMEN: Obese, yet benign. Her laparoscopic incisions are clean, dry, and intact. No drainage. No bowel sounds auscultated. EXTREMITIES: No edema or deformity. She is wearing sequential compression devices in her bilateral legs. NEUROLOGIC: Intact. No gross focal deficits appreciated. DIAGNOSES: 1. Extreme obesity, BMI 51, complicating underlying hypertension. 2. Status post laparoscopic vertical sleeve gastrectomy. 3. Hypertensive heart disease. PLAN: 1. We will start intravenous famotidine. 2. Follow hemoglobin and hematocrit. 3. Continue home medications. 4. Antiemetics in the form of ondansetron. 5. We will proceed with enoxaparin for deep venous thrombosis prophylaxis. 6. Encourage incentive spirometer use to prevent atelectasis. 7. We will mobilize physical therapy. I would like to thank Dr. Haskins for involving me in this case. I spent 45 minutes in the care of this patient. MD SAUL Snow/EDMOND /[id number]
[2019-01-29] MEDS: FAMOTIDINE 20 MG/2 ML VIAL IV SCH (18:16)
[2019-01-29] MEDS ORDERED: DEXAMETHASONE SOD PHOS INJ 4 MG/ML VIAL ONE (18:17)
[2019-01-29] MEDS ORDERED: ONDANSETRON HCL INJ 2MG/ML 2ML 2 MG/ML VIAL ONE (18:17)
[2019-01-29] MEDS ORDERED: NEOSTIGMINE 5 MG/5ML SYR ONE (18:17)
[2019-01-29] MEDS ORDERED: ACETAMINOPHEN 1000 MG/100 ML IV ONE (18:17)
[2019-01-29] MEDS ORDERED: EPHEDRINE SULFATE INJ 50 MG/10 ML SYR ONE (18:17)
[2019-01-29] MEDS ORDERED: ROCURONIUM BROMIDE 10 MG/ML 5ML VIAL ONE (18:17)
[2019-01-29] MEDS ORDERED: LIDOCAINE HCL 2% LOCAL INJ 5 ML SDV VIAL INJ ONE (18:17)
[2019-01-29] MEDS ORDERED: SEVOFLURANE INHAL SOLN 250 ML PEN BTL ONE (18:17)
[2019-01-29] MEDS ORDERED: GLYCOPYRROLATE INJ 1MG/ 5 ML SYR ONE (18:17)
[2019-01-29] MEDS ORDERED: PROPOFOL IV EMULSION 10 MG/ML 20 ML VIAL ONE (18:17)
[2019-01-29] MEDS ORDERED: MIDAZOLAM HCL 2 MG/2 ML VIAL ONE (18:22)
[2019-01-29] MEDS ORDERED: MORPHINE SULFATE INJ 10 MG/ML ONE (18:22)
[2019-01-29] MEDS ORDERED: FENTANYL CITRATE/PF 100MCG/2 ML INJ ONE (18:22)
[2019-01-29 20:31] VITALS: BP 122/68
[2019-01-29] MEDS: ENOXAPARIN SOD INJ 40 MG/0.4 ML SYR SC SCH (22:02)
[2019-01-30] VITALS (8 sets, daily range): BP systolic 120–169; BP diastolic 66–90
[2019-01-30] MEDS: SODIUM CHLORIDE 0.9% 1000ML 1,000 ML IV SCH ×3 (01:01→14:10)
--- NOTE | 2019-01-30 03:36 | NUR ---
Patient ambulates in the hallway accompanied by RN. Tolerated well. No complains.
[2019-01-30 06:32] LABS: BASOPHILS % 0.1 % (0.0-1.0); HEMATOCRIT 39.8 % (34.2-44.1); HEMOGLOBIN 12.2 g/dL (12.0-16.0); LYMPHOCYTES # (AUTO) 1.5 (1.0-3.2); LYMPHOCYTES % 11.2 % (18.0-39.1); MEAN CORPUSCULAR HEMOGLOBIN 27.5 pg (28-32); MEAN CORPUSCULAR HGB CONC 30.7 g/dL (31-35); MEAN CORPUSCULAR VOLUME 89.8 fL (81-99); MONOCYTES # (AUTO) 0.8 (0.2-0.8); MONOCYTES % 6.3 % (4.4-11.3); NEUTROPHILS # (AUTO) 10.9 (2.1-6.9); NEUTROPHILS % 81.9 % (38.7-80.0); PLATELET COUNT 344 x10e3/uL (140-360); RED BLOOD COUNT 4.43 x10e6/uL (3.6-5.1); RED CELL DISTRIBUTION WIDTH 14.6 % (11.7-14.4)
[2019-01-30 06:58] LABS: ALANINE AMINOTRANSFERASE 78 IU/L (0-55); ALBUMIN/GLOBULIN RATIO 0.7 (0.8-2.0); ALKALINE PHOSPHATASE 27 IU/L (40-150); ANION GAP 11.5 mmol/L (8-16); BLOOD UREA NITROGEN 11 mg/dL (7-26); BUN/CREATININE RATIO 15 (6-25); CALCIUM 9.3 mg/dL (8.4-10.2); CARBON DIOXIDE 23 mmol/L (22-29); CHLORIDE 102 mmol/L (98-107); CREATININE, SERUM 0.75 mg/dL (0.57-1.11); EST GLOMERULAR FILTRATION RATE > 60 ML/MIN (60-); GLUCOSE 99 mg/dL (74-118); PHOSPHORUS 4.6 MG/DL (2.3-4.7); POTASSIUM 4.5 mmol/L (3.5-5.1); SODIUM 132 mmol/L (136-145)
[2019-01-30] MEDS: ONDANSETRON HCL INJ 2MG/ML 2ML 2 MG/ML VIAL IV PRN (07:05)
[2019-01-30 07:29] LABS: MAGNESIUM 2.1 MG/DL (1.3-2.1)
--- NOTE | 2019-01-30 08:30 | NUR ---
Progress note S: Nausea, some vomiting O: AF, vss General- no distress Abdomen- soft, incisions healing well A/P: POD 1, s/p lap sleeve gastrectomy -Clears, ambulate, IV fluids -OK to dc later today if nausea better -Post op instructions discussed with patient
[2019-01-30] MEDS: FAMOTIDINE 20 MG/2 ML VIAL IV SCH ×2 (08:35→17:00)
[2019-01-30] MEDS: ENOXAPARIN SOD INJ 40 MG/0.4 ML SYR SC SCH ×2 (08:35→17:08)
[2019-01-30] MEDS ORDERED: PROMETHAZINE 25MG/ NS 50ML (IV) IV PRN ×2 (09:15→17:15)
--- NOTE | 2019-01-30 11:00 | NUR ---
PT DROWSY AT THIS TIME AND SLEEPY AFTER PHENERGAN ADMINISTRATION PLACED PT ON 2L FOR LOW SATS. NOW AT 94% WILL CONTINUE TO MONITOR
--- NOTE | 2019-01-30 13:25 | NUR ---
NOTIFIED MD KIM REGARDING PT DROWSINESS, PT UNABLE TO STAY AWAKE FOR LUNCH AFTER PHENERGAN DOSAGE ORDERED TO LOWER DOSAGE OF PHENERGAN TO 12.5 AT THIS TIME IF PT NEEDS IT FOR NAUSEA AGAIN ORDERS IN
--- NOTE | 2019-01-30 19:02 | NUR ---
Nutrition Education Notes: Learner(s): pt Time spent: 20minutes Barriers: none Cultural/Language Modifications: No cultural/language modifications noted. Pt speaks Tajik. Readiness: acceptance Method: explanation/ discussion, handout Topics: Bariatric diet progression (clear liquid, full liquid, pureed) Understanding/Compliance: good compliance expected, needs reinforcement at outpatient bariatric clinic, all questions have been answered Signed by Vilma Epperson, MS, RD, LD
--- NOTE | 2019-01-30 20:50 | NUR ---
Patient ambulates at the hallway with no problems. Able to tolerate clear liquids. No complain of nausea and vomiting.
[2019-01-30] MEDS: HYDROCODONE/APAP 7.5MG-325MG 1 EA TAB PO PRN (21:13)
[2019-01-31] VITALS: BP 107/66
[2019-01-31 06:46] LABS: BASOPHILS % 0.2 % (0.0-1.0); EOSINOPHILS % 0.1 % (0.0-6.0); HEMATOCRIT 35.5 % (34.2-44.1); HEMOGLOBIN 11.1 g/dL (12.0-16.0); LYMPHOCYTES # (AUTO) 1.9 (1.0-3.2); LYMPHOCYTES % 18.2 % (18.0-39.1); MEAN CORPUSCULAR HEMOGLOBIN 27.9 pg (28-32); MEAN CORPUSCULAR HGB CONC 31.3 g/dL (31-35); MEAN CORPUSCULAR VOLUME 89.2 fL (81-99); MONOCYTES # (AUTO) 0.9 (0.2-0.8); MONOCYTES % 8.5 % (4.4-11.3); NEUTROPHILS # (AUTO) 7.5 (2.1-6.9); NEUTROPHILS % 72.4 % (38.7-80.0); PLATELET COUNT 326 x10e3/uL (140-360); RED BLOOD COUNT 3.98 x10e6/uL (3.6-5.1); RED CELL DISTRIBUTION WIDTH 14.8 % (11.7-14.4)
[2019-01-31 06:59] LABS: ALANINE AMINOTRANSFERASE 43 IU/L (0-55); ALBUMIN 2.6 g/dL (3.5-5.0); ALBUMIN/GLOBULIN RATIO 0.8 (0.8-2.0); ALKALINE PHOSPHATASE 25 IU/L (40-150); ANION GAP 9.6 mmol/L (8-16); BLOOD UREA NITROGEN 14 mg/dL (7-26); BUN/CREATININE RATIO 20 (6-25); CALCIUM 8.8 mg/dL (8.4-10.2); CARBON DIOXIDE 25 mmol/L (22-29); CHLORIDE 105 mmol/L (98-107); CREATININE, SERUM 0.71 mg/dL (0.57-1.11); EST GLOMERULAR FILTRATION RATE > 60 ML/MIN (60-); GLUCOSE 89 mg/dL (74-118); POTASSIUM 3.6 mmol/L (3.5-5.1); SODIUM 136 mmol/L (136-145)
--- NOTE | 2019-01-31 07:00 | NUR ---
BEDSIDE SHIFT REPORT FROM IRENE CANCINO. PT DENIES NEEDS AT THIS TIME.
[2019-01-31 07:16] VITALS: BP 103/67
--- NOTE | 2019-01-31 07:27 | Discharge Summary ---
ADMIT DIAGNOSES: 1. Extreme obesity, BMI 51, complicating underlying hypertension. 2. Hypertensive heart disease. 3. Hyperlipidemia. DISCHARGE DIAGNOSES: 1. Status post laparoscopic vertical sleeve gastrectomy. 2. Extreme obesity, BMI 51, complicating underlying hypertension. 3. Hypertensive heart disease. 4. Hyperlipidemia. HOSPITAL COURSE: This is a 58-year-old woman, who was admitted to [facility] with diagnosis of extreme obesity, BMI 51, complicating underlying hypertensive heart disease. During this hospitalization, the patient underwent successful laparoscopic vertical sleeve gastrectomy performed by her bariatric surgeon namely Dr. Gaston Haskins. The patient tolerated the surgery quite well. On day of discharge, the patient was tolerating a full liquid diet. The patient underwent intraoperative EGD that revealed a negative leak test. LABORATORY DATA: The patient's lab work was within normal limits on day of discharge. CONDITION ON DISCHARGE: Stable. DISCHARGE MEDICATIONS: 1. Atorvastatin 80 mg at bedtime. 2. Diltiazem 360 mg daily. 3. Lisinopril 2.5 mg daily. 4. Sertraline 200 mg at bedtime. 5. Tylenol #3 one pill every 4 hours p.r.n. pain, 25 prescribed, no refills. 6. Zofran 4 mg every 6 hours p.r.n. nausea or vomiting, 20 prescribed, no refills. FOLLOWUP INSTRUCTIONS: The patient instructed to follow up with Dr. Spears within 1 week. The patient is to followup with her primary care physician, namely Dr. Joseph Morillo within 2 weeks. MD SAUL Snow/EDMOND /[id number] cc: MD Joseph Turcios MD
[2019-01-31 08:00] VITALS: BP 103/67
[2019-01-31] MEDS: FAMOTIDINE 20 MG/2 ML VIAL IV SCH (09:15)
[2019-01-31] MEDS: ENOXAPARIN SOD INJ 40 MG/0.4 ML SYR SC SCH (09:15)
[2019-01-31] MEDS: SCOPOLAMINE 1.5 MG PATCH TOP SCH (09:16)
[2019-01-31] MEDS: HYDROCODONE/APAP 7.5MG-325MG 1 EA TAB PO PRN (09:33)
[2019-01-31 11:51] VITALS: BP 113/67
[2019-01-31] MEDS ORDERED: TYLENOL WITH C1 EACH PO (14:49)
[2019-01-31] MEDS ORDERED: ZOFRAN4 MG PO (14:49)
[2019-01-31 15:00] VITALS: BP 119/58
--- NOTE | 2019-01-31 15:03 | NUR ---
Discontinuing PT services since patient is Mod I in functional mobility. Thank you. Addendum: 01/31/19 at 1503 by Star acosta PT Amended: Links added.
[2019-01-31] MEDS ORDERED: ONDANSETRON HCL 4 MG ORAL DISINTEGRATING TAB PO PRN (15:15)
[2019-03-02] MEDS ORDERED: REGLAN5 MG PO (07:16)
[2019-03-02] MEDS ORDERED: FLAGYL500 MG PO (07:16)
[2019-03-02] MEDS ORDERED: ZOFRAN4 MG PO (07:16)
== END 2019-01-31 15:13 | disposition home or self-care (01) | DRG 620 ==
LOC: OR 07:04 → PACU V 11:24 → OBSVTOIN 11:24 → MED/SURG 14:04
PROVIDERS: ADMIT Internal Medicine; ATTEND Internal Medicine
PROC: 0JU80KZ Supplement of Abdomen Subcutaneous Tissue and Fascia with Nonautologous Tissue Substitute, Open Approach (ICD-10-PCS; 2019-01-29)
PROC: 0DB64Z3 Excision of Stomach, Percutaneous Endoscopic Approach, Vertical (ICD-10-PCS; principal; 2019-01-29 09:00)
DX: E66.01 Morbid (severe) obesity due to excess calories (principal); K92.2 Gastrointestinal hemorrhage, unspecified; Z68.43 Body mass index [BMI] 50.0-59.9, adult; I11.0 Hypertensive heart disease with heart failure; I50.9 Heart failure, unspecified; E78.5 Hyperlipidemia, unspecified
CPT/HCPCS: 36415; 80048; 80053; 83735; 84100; 85025; 93005; 97139; J0690; J1100; J1650; J2001; J2250; J2270; J2405; J2550; J3010; J7030

== ENCOUNTER 2019-02-12 08:51 | Emergency (ER) | payer OTHER ==
[~2019-02-12] VITALS: Ht 152.4 cm; Wt 120.2 kg
[~2019-02-12 08:51] MED LIST changes: +TYLENOL WITH C1 EACH PO; +ZOFRAN4 MG PO
--- OUTSIDE RECORDS SUMMARY | 2019-02-12 08:54 | XMS REPORT | Continuity of Care Document ---
Author Author [employer] Organization [employer] Address Unknown Phone Unavailable Care Team Providers Care Junior Data Analyst Name Role Phone [employer] Unavailable Unavailable Problems Problem Status Onset Date Classification Date Reported Comments Source MORBID OBERSITY E66.01 Active 01/10/2017 [facility] E66.01 MORBID OBESITY Active 11/04/2016 [facility] [id number] Active 2016 [facility] ACUTE RLL PNEUMONIA Active 10/20/2012 [facility] BRONCHITIS Active 10/20/2012 [facility] 466.0 - ACUTE BRONCHITI Active 10/13/2012 [facility] LEFT BREASTS CANCER 174.9, 611.0 Active 10/25/2011 [facility] Bilateral mastectomy Active 05/21/2010 Problem 10/26/2012 [facility] Breast reconstruction with latissimus dorsi flap with implant Active 05/21/2010 [facility]/26[facility] Bilateral mastectomy (procedure) Active 05/21/2010 Problem 01/13/2017 [facility] Breast reconstruction with latissimus dorsi flap with implant (procedure) Active 05/21/2010 Problem 01/13/2017 [facility] Hypertension Resolved Problem 10/26/2012 [facility] Hypothyroid Active Problem 10/26/2012 [facility] Malignant tumor of breast (disorder) Resolved Problem 01/13/2017 [facility] Hypertensive disorder, systemic arterial (disorder) Resolved Problem 01/13/2017 [facility] Hypothyroidism (disorder) Active Problem 01/13/2017 [facility] Breast cancer Resolved Problem 10/26/2012 [facility] PNEUMONIA, ORGANISM NOS Active [facility] RT KNEE PAIN Active [facility] JOINT DIS NOS-L/LEG Active [facility] MORBID (SEVERE) OBESITY DUE TO EXCESS CA Active [place] Medications Medication Details Route Status Patient Instructions Ordering Provider Order Date Source diltiazem 360 mg/24 hours oral capsule, extended release 360 mg=1 cap, PO, Daily, 0 Refill(s) Active 10/08/2016 [facility] atorvastatin 80 mg oral tablet 80 mg=1 tab, PO, Daily, 0 Refill(s) Active 10/08/2016 [facility] Sertraline 100 MG Oral Tablet [Zoloft] 100 mg=1 tab, PO, Daily, 0 Refill(s) Active 10/08/2016 [facility] Hydrochlorothiazide 12.5 MG / Lisinopril 20 MG Oral Tablet 1 tab, PO, Daily, 0 Refill(s) Active 10/08/2016 [facility] pneumococcal 23-valent vaccine 0.5 ml, Route: IM, ONCALL, Start date: 10/24/12 15:27:17, Stop date: 11/23/12 15:22:17 Inactive SYSTEM 10/24/2012 [facility] Castrejon,[facility] Robitussin-DM 10 mL, Route: PO, Drug Form: LIQ, Q6H-02, Start date: 10/23/12 20:00:00, Duration: 30 day, Stop date: 11/22/12 14:00:00 PO No Longer [facility] Tessalon Perles 200 mg, 2 cap, Route: PO, Drug form: CAP, TID, Start date: 10/23/12 19:22:00, Duration: 30 day, Stop date: 11/22/12 17:00:00 PO No Longer [facility]2012 [facility] predniSONE 40 mg, 2 tab, Route: PO, Drug form: TAB, Daily, Start date: 10/23/12 9:00:00, Duration: 30 day, Stop date: 11/21/12 9:00:00 PO No Longer Active Jason 10/23/2012 [facility] Robitussin-DM 10 mL, Route: PO, Drug Form: LIQ, Q6H, PRN Cough, Start date: 10/22/12 20:00:00, Duration: 30 day, Stop date: 11/21/12 19:59:00 PO No Longer Active [facility] 10/23/2012 [facility] Robitussin-DM 10 mL, Route: PO, Drug Form: LIQ, ONCE, Start date: 10/22/12 14:00:00, Stop date: 10/22/12 14:00:00 PO No Longer Active [facility] 10/22/2012 [facility] lactulose 15 gm, 22.5 mL, Route: PO, Drug form: SYRP, ONCE, Start date: 10/22/12 13:34:00, Stop date: 10/22/12 13:34:00 PO No Longer Active [facility] 10/22/2012 [facility] Cymbalta 60 mg, 1 cap, Route: PO, Drug form: DRC, Daily, Start date: 10/22/12 9:00:00, Duration: 30 day, Stop date: 11/20/12 9:00:00 PO No Longer Active [facility] 10/22/2012 [facility] levofloxacin 750 mg, 1 tab, Route: PO, Drug form: TAB, Q24H, Start date: 10/22/12 2:00:00, Duration: 30 day, Stop date: 11/20/12 2:00:00 PO No Longer Active [facility] 10/22/2012 [facility] methylPREDNISolone 125 mg, 2 mL, Route: IV, Drug form: INJ, Q24H, Start date: 10/22/12 0:00:00, Duration: 30 day, Stop date: 11/20/12 0:00:00 IV No Longer Active [facility] 10/22/2012 [facility] budesonide-formoterol 160 mcg-4.5 mcg/inh inhalation aerosol with adapter 1 inhalation, Route: INHALATION, Drug Form: AERO/A, RBID, Start date: 10/21/12 20:00:00, Duration: 30 day, Stop date: 11/20/12 8:00:00 INHALATION No Longer Active [facility] 10/22/2012 [facility] Norvasc 10 mg, 1 tab, Route: PO, Drug form: TAB, Q24H, Start date: 10/21/12 13:00:00, Duration: 30 day, Stop date: 11/19/12 13:00:00 PO No Longer Active [facility] 10/21/2012 [facility] Sodium Chloride 0.9% IV 1,000 mL 1,000 mL, Rate: 50 ml/hr, Infuse over: 20 hr, Route: IV, Dosing Weight 104.119 kg, Total Volume: 1,000, Start date: 10/21/12 12:44:00, Duration: 1 doses or times, Stop date: 10/22/12 8:43:00 IV No Longer Active [facility] 10/21/2012 [facility] Lovenox 40 mg, 0.4 mL, Route: SUB-Q, Drug form: INJ, Daily, Start date: 10/21/12 9:00:00, Duration: 30 day, Stop date: 11/19/12 9:00:00 SUB-Q No Longer Active [facility] 10/21/2012 [facility] Pepcid 20 mg, 1 tab, Route: PO, Drug form: TAB, Q12H, Start date: 10/21/12 9:00:00, Duration: 30 day, Stop date: 11/19/12 21:00:00 PO No Longer Active [facility] 10/21/2012 [facility] Levaquin 750 mg, 150 mL, Route: IV, Drug form: SOLN, ONCE, Start date: 10/21/12 2:15:00, Stop date: 10/21/12 2:15:00 IV No Longer Active [facility] 10/21/2012 [facility] DuoNeb inhalation solution 3 mL, Route: NEB, Drug Form: SOLN, RQ6H, PRN Wheezing, Start date: 10/21/12 1:54:00, Duration: 30 day, Stop date: 11/20/12 1:53:00 NEB No Longer Active [facility] 10/21/2012 [facility] Robitussin 200 mg, 10 mL, Route: PO, Drug form: SYRP, Q4H, PRN Cough, Start date: 10/21/12 1:51:00, Duration: 30 day, Stop date: 11/20/12 1:50:00 PO No Longer Active [facility] 10/21/2012 [facility] Sodium Chloride 0.9% IV 250 mL, Route: IVPB, Start date: 10/21/12 1:51:00, Duration: 30 day, Stop date: 11/20/12 1:50:00, PRN Line Flush IVPB No Longer Active [facility] 10/21/2012 [facility] BD Normal Saline Flush 10 mL, Route: IVP, Drug Form: INJ, PRN, PRN Line Flush, Start date: 10/21/12 1:51:00, Duration: 30 day, Stop date: 11/20/12 1:50:00 IVP No Longer Active [facility] 10/21/2012 [facility] SoluMedrol 125 mg, Route: IV, ONCE, Dosing Weight 106.818, kg, Start date: 10/21/12 0:56:00, Stop date: 10/21/12 0:56:00 IV No Longer Active [facility] 10/21/2012 [facility] vancomycin 1 gm, 200 mL, Route: IVPB, Drug form: INJ, ONCE, Dosing Weight 106.818, kg, Priority: STAT, Start date: 10/20/12 23:24:00, Stop date: 10/20/12 23:24:00 IVPB No Longer Active [facility] 10/21/2012 [facility] cefepime + Sodium Chloride 0.9% IV 100 mL 2 gm, Route: IVPB, Drug form: INJ, ONCE, Dosing Weight 106.818, kg, Priority: STAT, Start date: 10/20/12 23:24:00, Stop date: 10/20/12 23:24:00 IVPB No Longer Active [facility]10/21/2012 [facility] [place] 5/325 oral tablet 1 tab, Route: PO, Drug Form: TAB, Dosing Weight 106.818, kg, ONCE, Start date: 10/20/12 23:11:00, Stop date: 10/20/12 23:11:00 PO No Longer Active [facility] 10/21/2012 [facility] ibuprofen 800 mg, 1 tab, Route: PO, Drug form: TAB, ONCE, Dosing Weight 106.818, kg, Priority: STAT, Start date: 10/20/12 23:11:00, Stop date: 10/20/12 23:11:00 PO No Longer Active [facility] 10/21/2012 [facility] ibuprofen 600 mg, 1 tab, Route: PO, Drug form: TAB, ONCE, Dosing Weight 106.818, kg, Priority: STAT, Start date: 10/20/12 23:08:00, Stop date: 10/20/12 23:08:00 PO No Longer Active [facility] 10/21/2012 [facility] [place] 5/325 oral tablet 1 tab, Route: PO, Drug Form: TAB, Dosing Weight 106.818, kg, ONCE, STAT, Start date: 10/20/12 23:08:00, Stop date: 10/20/12 23:08:00 PO No Longer Active [facility]10/21/2012 [facility] ipratropium 0.5 mg, 2.5 mL, Route: NEB, Drug form: SOLN, Q15Min, Dosing Weight 106.818, kg, Priority: STAT, Start date: 10/20/12 22:12:00, Duration: 2 doses or times, Stop date: 10/20/12 22:27:00 NEB No Longer Active [facility] 10/21/2012 [facility] albuterol 0.083% inhalation solution 2.49 mg, 3 mL, Route: NEB, Drug form: SOLN, Q15Min, Dosing Weight 106.818, kg, Priority: STAT, Start date: 10/20/12 22:12:00, Duration: 2 doses or times, Stop date: 10/20/12 22:27:00 NEB No Longer Active [facility] 10/21/2012 [facility] Allergies, Adverse Reactions, Alerts Substance Category Reaction Severity Reaction type Status Date Reported Comments Source NKFA Assertion Drug allergy Active [facility] Immunizations Immunization Date Given Site Status Last Updated Comments Source pneumococcal 23-valent vaccine 10/24/2012 Left Deltoid completed Anu [facility] pneumococcal 23-valent vaccine 10/24/2012 completed Anu [facility] Castrejon,[facility] Results Order Name Results Value [...] should be multiplied by the estimated BMI. [facility] CHEMISTRY Creatinine Lvl 0.8 0.5 - 1.4 10/24/2012 Normal [facility] CHEMISTRY Sodium Lvl 141 135 - 145 10/24/2012 Normal [facility] CHEMISTRY Glucose Lvl 65 70 - 99 10/24/2012 LOW <sup>5</sup>Interpretive Data: Adult reference range values reflect the clinical guidelines
of the Citizen [place] Diabetes Association. [facility] CHEMISTRY Potassium Lvl 3.7 3.5 - 5.1 10/24/2012 Normal [facility] CHEMISTRY AGAP 13.7 10.0 - 20.0 10/24/2012 Normal [facility] CHEMISTRY Calcium Lvl 8.6 8.5 - 10.5 10/24/2012 Normal [facility] CHEMISTRY Chloride Lvl 104 95 - 109 10/24/2012 Normal [facility] CHEMISTRY BUN 19 7 - 22 10/24/2012 Normal [facility] CHEMISTRY CO2 27 24 - 32 10/24/2012 Normal [facility] HEMATOLOGY WBC 11.6 3.7 - 10.4 10/24/2012 HI [facility] HEMATOLOGY MCV 84.4 81.0 - 99.0 10/24/2012 Normal [facility] HEMATOLOGY Hct 33.0 36.0 - 48.0 10/24/2012 LOW [facility] HEMATOLOGY Hgb 10.9 12.0 - 16.0 10/24/2012 LOW [facility] HEMATOLOGY RBC 3.90 4.20 - 5.40 10/24/2012 LOW [facility] HEMATOLOGY MPV 8.2 7.4 - 10.4 10/24/2012 Normal [facility] HEMATOLOGY Platelet 384 133 - 450 10/24/2012 Normal [facility] HEMATOLOGY MCHC 32.9 32.0 - 36.0 10/24/2012 Normal [facility] HEMATOLOGY MCH 27.8 27.0 - 31.0 10/24/2012 Normal [facility] HEMATOLOGY RDW 15.2 11.5 - 14.5 10/24/2012 [facility] HEMATOLOGY Polychrom Slight (10/24/2012 05:10:00) None Seen 10/24/2012 Normal [facility] HEMATOLOGY Lymphocytes 20.5 20.0 - 40.0 10/24/2012 Normal [facility] HEMATOLOGY Eosinophils 0.0 0.0 - 4.0 10/24/2012 Normal [facility] HEMATOLOGY Basophils 0.3 0.0 - 1.0 10/24/2012 Normal [facility] HEMATOLOGY Monocytes 8.7 2.0 - 12.0 10/24/2012 Normal [facility] HEMATOLOGY Segs 70.5 45.0 - 75.0 10/24/2012 Normal [facility] HEMATOLOGY Segs-Bands # 8.2 1.5 - 8.1 10/24/2012 HI [facility] HEMATOLOGY Lymphocytes # 2.4 1.0 - 5.5 10/24/2012 Normal [facility] HEMATOLOGY Monocytes # 1.0 0.0 - 0.8 10/24/2012 HI [facility] HEMATOLOGY Eosinophils # 0.0 0.0 - 0.5 10/24/2012 Normal [facility] HEMATOLOGY Basophils # 0.0 0.0 - 0.2 10/24/2012 Normal [facility] CHEMISTRY eGFR 77 10/23/2012 NA [...] should be multiplied by the estimated BMI. [facility] CHEMISTRY Sodium Lvl 140 135 - 145 10/23/2012 Normal [facility] CHEMISTRY Glucose Lvl 110 70 - 99 10/23/2012 HI <sup>6</sup>Interpretive Data: Adult reference range values reflect the clinical guidelines
of the Citizen [place] Diabetes Association. [facility] CHEMISTRY Creatinine Lvl 1.0 0.5 - 1.4 10/23/2012 Normal [facility] CHEMISTRY BUN 24 7 - 22 10/23/2012 HI [facility] CHEMISTRY Calcium Lvl 9.1 8.5 - 10.5 10/23/2012 Normal [facility] CHEMISTRY Potassium Lvl 3.7 3.5 - 5.1 10/23/2012 Normal [facility] CHEMISTRY CO2 21 24 - 32 10/23/2012 LOW [facility] CHEMISTRY Chloride Lvl 105 95 - 109 10/23/2012 Normal [facility] CHEMISTRY AGAP 17.7 10.0 - 20.0 10/23/2012 Normal [facility] HEMATOLOGY Basophils 0.0 0.0 - 1.0 10/23/2012 [facility] HEMATOLOGY Eosinophils 0.0 0.0 - 4.0 10/23/2012 [facility] HEMATOLOGY Monocytes 5.7 2.0 - 12.0 10/23/2012 [facility] HEMATOLOGY Lymphocytes 8.1 20.0 - 40.0 10/23/[address] [facility] HEMATOLOGY Segs 86.2 45.0 - 75.0 10/23/2012 [facility] HEMATOLOGY Basophils # 0.0 0.0 - 0.2 10/23/2012 Normal [facility] HEMATOLOGY Eosinophils # 0.0 0.0 - 0.5 10/23/2012 [facility] HEMATOLOGY Monocytes # 1.1 0.0 - 0.8 10/23/2012 [facility] HEMATOLOGY Lymphocytes # 1.5 1.0 - 5.5 10/23/2012 [facility] HEMATOLOGY Segs-Bands # 16.3 1.5 - 8.1 10/23/2012 [facility] HEMATOLOGY MPV 7.9 7.4 - 10.4 10/23/2012 [facility] HEMATOLOGY Platelet 394 133 - 450 10/23/2012 [facility] HEMATOLOGY RDW 15.4 11.5 - 14.5 10/23/2012 [facility] HEMATOLOGY MCHC 33.1 32.0 - 36.0 10/23/2012 [facility] HEMATOLOGY MCH 27.8 27.0 - 31.0 10/23/2012 [facility] HEMATOLOGY MCV 84.0 81.0 - 99.0 10/23/2012 Normal [facility] HEMATOLOGY Hct 35.4 36.0 - 48.0 10/23/[address] [facility] HEMATOLOGY Hgb 11.7 12.0 - 16.0 10/23/[address] [facility] HEMATOLOGY RBC 4.21 4.20 - 5.40 10/23/2012 [facility] HEMATOLOGY WBC 19.0 3.7 - 10.4 10/23/2012 [facility] CHEMISTRY Hgb A1C 5.7 10/22/2012 NA <sup>8</sup>Interpretive [...] 240 Poor Control, take action to lower [facility] CHEMISTRY Magnesium Lvl 2.1 1.8 - 2.4 10/22/2012 Normal [facility] CHEMISTRY eGFR 116 10/22/2012 NA [...] should be multiplied by the estimated BMI. [facility] CHEMISTRY Potassium Lvl 4.5 3.5 - 5.1 10/22/2012 Normal [facility] CHEMISTRY Sodium Lvl 142 135 - 145 10/22/2012 Normal [facility] CHEMISTRY Creatinine Lvl 0.7 0.5 - 1.4 10/22/2012 Normal [facility] CHEMISTRY Chloride Lvl 103 95 - 109 10/22/2012 Normal [facility] CHEMISTRY Glucose Lvl 121 70 - 99 10/22/2012 [place] <sup>7</sup>Interpretive Data: Adult reference range values reflect the clinical guidelines
of the [place] Diabetes Association. [facility] CHEMISTRY Alk Phos 47 39 - 136 10/22/2012 Normal [facility] CHEMISTRY BUN 14 7 - 22 10/22/2012 Normal [facility] CHEMISTRY ALT 56 0 - 65 10/22/2012 Normal [facility] CHEMISTRY CO2 21 24 - 32 10/22/2012 LOW [facility] CHEMISTRY Albumin Lvl 3.3 3.5 - 5.0 10/22/2012 LOW [facility] CHEMISTRY AGAP 22.5 10.0 - 20.0 10/22/2012 [facility] CHEMISTRY Total Protein 7.9 6.4 - 8.4 10/22/2012 Normal [facility] CHEMISTRY Globulin 4.6 2.0 - 4.0 10/22/2012 [facility] CHEMISTRY B/C Ratio 20 6 - 25 10/22/2012 Normal [facility] CHEMISTRY Bili Total 0.4 0.2 - 1.3 10/22/2012 Normal [facility] CHEMISTRY Calcium Lvl 9.1 8.5 - 10.5 10/22/2012 Normal [facility] CHEMISTRY AST 32 0 - 37 10/22/2012 Normal [facility] CHEMISTRY A/G Ratio 0.7 0.7 - 1.6 10/22/2012 Normal [facility] HEMATOLOGY MCH 28.1 27.0 - 31.0 10/22/2012 Normal [facility] HEMATOLOGY MCV 84.2 81.0 - 99.0 10/22/2012 Normal [facility] HEMATOLOGY RBC 4.28 4.20 - 5.40 10/22/2012 Normal [facility] HEMATOLOGY Hgb 12.1 12.0 - 16.0 10/22/2012 [facility] HEMATOLOGY Hct 36.1 36.0 - 48.0 10/22/2012 Normal [facility] HEMATOLOGY MPV 8.5 7.4 - 10.4 10/22/2012 Normal [facility] HEMATOLOGY MCHC 33.5 32.0 - 36.0 10/22/2012 Normal [facility] HEMATOLOGY RDW 15.0 11.5 - 14.5 10/22/2012 [facility] HEMATOLOGY Platelet 375 133 - 450 10/22/2012 Normal [facility] HEMATOLOGY WBC 14.7 3.7 - 10.4 10/22/2012 [facility] HEMATOLOGY Eosinophils 0.0 0.0 - 4.0 10/22/2012 Normal [facility] HEMATOLOGY Segs 88.9 45.0 - 75.0 10/22/2012 [facility] HEMATOLOGY Lymphocytes 9.5 20.0 - 40.0 10/22/2012 LOW [facility] HEMATOLOGY Monocytes 1.5 2.0 - 12.0 10/22/2012 LOW [facility] HEMATOLOGY Lymphocytes # 1.4 1.0 - 5.5 10/22/2012 Normal [facility] HEMATOLOGY Monocytes # 0.2 0.0 - 0.8 10/22/2012 Normal [facility] HEMATOLOGY Eosinophils # 0.0 0.0 - 0.5 10/22/2012 Normal [facility] HEMATOLOGY Basophils 0.1 0.0 - 1.0 10/22/2012 Normal [facility] HEMATOLOGY Segs-Bands # 13.1 1.5 - 8.1 10/22/2012 HI [facility] HEMATOLOGY Basophils # 0.0 0.0 - 0.2 10/22/2012 Normal [facility] CHEMISTRY Total Protein 7.9 6.4 - 8.4 10/21/2012 Normal [facility] CHEMISTRY Bili Total 0.5 0.2 - 1.3 10/21/2012 Normal [facility] CHEMISTRY Globulin 4.6 2.0 - 4.0 10/21/2012 [facility] CHEMISTRY B/C Ratio 7 6 - 25 10/21/2012 Normal [facility] CHEMISTRY AST 110 0 - 37 10/21/2012 [facility] CHEMISTRY A/G Ratio 0.7 0.7 - 1.6 10/21/2012 Normal [facility] CHEMISTRY ALT 86 0 - 65 10/21/2012 [facility] CHEMISTRY Alk Phos 64 39 - 136 10/21/2012 Normal [facility] CHEMISTRY Albumin Lvl 3.3 3.5 - 5.0 10/21/2012 LOW [facility] HEMATOLOGY Sed Rate 45 0 - 20 10/21/2012 [facility] HEMATOLOGY Plt Morph Normal (10/21/2012 09:00:00) 10/21/2012 Normal [facility] HEMATOLOGY RBC Morph Normal (10/21/2012 09:00:00) 10/21/2012 Normal [facility] IMMUNOLOGY HIV 1/2 Ab Negative *NA* (10/21/2012 09:00:00) Negative 10/21/2012 [facility] Microbiology Culture: Respiratory w/Gram Stain 10/21/2012 [facility] BACTERIAL - SEROLOGY U S pneumo Ag Negative (10/21/2012 05:30:21) Negative 10/21/2012 Normal [facility] MICRO MISC - SEROLOGY U Legion Ag Negative 1 (10/21/2012 05:30:21) Negative 10/21/2012 Normal <sup>1</sup>Interpretive Data: This kit tests for Legionella pneumophila Serogroup 1 Antigen. [facility] Microbiology Culture: Blood 10/21/2012 [facility] CHEMISTRY Lactic Acid Lvl 2.1 0.5 - 2.2 10/21/2012 Normal [facility] Microbiology Culture: Blood 10/21/2012 [facility] CHEMISTRY Temp Art 37.0 10/21/2012 [facility] CHEMISTRY Mode Art Rm Air (10/20/2012 23:24:00) 10/21/2012 Normal [facility] CHEMISTRY O2 Sat Art 94.4 95.0 - 100.0 10/21/2012 LOW [facility] CHEMISTRY HCO3 Art 26 22 - 26 10/21/2012 Normal [facility] CHEMISTRY BE Art 1 -2-2 - 2 10/21/2012 Normal [facility] CHEMISTRY pCO2 Art 40 35 - 45 10/21/2012 Normal [facility] CHEMISTRY pO2 Art 71 80 - 100 10/21/2012 LOW [facility] CHEMISTRY pH Art 7.42 7.35 - 7.45 10/21/2012 Normal [facility] CHEMISTRY CK MB Index <0.4 0.0 - 2.5 10/21/2012 Normal [facility] CHEMISTRY Troponin-I <0.02 0.00 - 0.40 10/21/2012 Normal [facility] CHEMISTRY B/C Ratio 8 6 - 25 10/21/2012 Normal [facility] CHEMISTRY Globulin 4.9 2.0 - 4.0 10/21/2012 HI [facility] CHEMISTRY A/G Ratio 0.7 0.7 - 1.6 10/21/2012 Normal [facility] CHEMISTRY AST 15 0 - 37 10/21/2012 Normal [facility] CHEMISTRY Alk Phos 55 39 - 136 10/21/2012 Normal [facility] CHEMISTRY ALT 39 0 - 65 10/21/2012 Normal [facility] CHEMISTRY Albumin Lvl 3.5 3.5 - 5.0 10/21/2012 Normal [facility] CHEMISTRY Bili Total 0.4 0.2 - 1.3 10/21/2012 Normal [facility] CHEMISTRY Total Protein 8.4 6.4 - 8.4 10/21/2012 Normal [facility] CHEMISTRY CK MB <0.5 0.5 - 3.6 10/21/2012 Normal [facility] CHEMISTRY Total CK 117 12 - 191 10/21/2012 Normal [facility] Pathology Reports No Data Provided [...] the possibility of a mass. SL: 10/24/2012 [facility] Chest 2 views Two views chest. HISTORY: Pneumonia. Comparison 10/20/2012. Right lower lobe opacity persists. Consider pneumonia. No pleural effusion. Heart size normal. SL: 10/21/2012 [facility] Chest 2 views EXAMINATION: Chest [...] or focal osseous lesion is appreciated. SL:10/20/2012 [facility] Consultation Notes No Data Provided for This Section Discharge Summaries No Data Provided for This Section History and Physicals No Data Provided for This Section Vital Signs Vital Sign Value Date Comments Source Height 152.4 cm 10/08/2016 [facility] Weight 112.727 10/08/2016 [facility] BMI Calculated 48.54 10/08/2016 [facility] Respitory Rate 20 10/24/2012 [facility] Diastolic (mm Hg) 89 10/24/2012 [facility] Systolic (mm Hg) 139 10/24/2012 [facility] Heart Rate 90 10/24/2012 [facility] Temperature Oral (F) 98.5 F 10/24/2012 [facility] Diastolic (mm Hg) 92 10/24/2012 [facility] Systolic (mm Hg) 153 10/24/2012 [facility] Respitory Rate 20 10/24/2012 [facility] Temperature Oral (F) 98.6 F 10/24/2012 [facility] [facility] 10[facility]24[facility]2012 [facility] Heart Rate 87 10/24/2012 [facility] Respitory Rate 20 10/24/2012 [facility] Temperature Oral (F) 98.4 F 10/24/2012 [facility] Diastolic (mm Hg) 88 10/24/2012 [facility] Systolic (mm Hg) 138 10/24/2012 [facility] Weight 104.119 10/21/2012 [facility] Height 152.4 cm 10/21/2012 [facility] Weight 106.818 10/21/2012 [facility] Height 152.4 cm 10/21/2012 [facility] Encounters Location Location Details Encounter Type Encounter Number Reason For Visit Attending Provider ADM Date DC Date Status Source [facility] Outpatient [id number] LEFT BREASTS CANCER 174.9, 611.0 SHAHE VARTIVARIAN 10/26/2011 10/26/2011 Active [facility] OD [id number] 466.0 - ACUTE BRONCHITI RADHA BELINDA 10/16/2012 Active [facility] Inpatient [id number] TALI EDWARDS 10/20/2012 10/24/2012 [facility] OP Therapy Patients [id number] Mihir Pantoja 10/16/2014 11/15/2014 [facility] OP Therapy Patients [id number] Mihir Pantoja 11/15/2014 12/15/2014 [facility] Outpatient [id number] Velasquez Lawanda 10/07/2016 10/08/2016 [facility] Bedded Outpatient [id number] Velasquez Lawanda 10/08/2016 10/08/2016 [facility] Outpatient [id number] Velasquez Lawanda 11/04/2016 11/05/2016 [facility] Outpatient [id number] Velasquez Lawanda 12/09/2016 12/10/2016 [facility] Outpatient [id number] Velasquez Lawanda 01/10/2017 01/11/2017 [facility] Procedures Procedure Code Date Perfomer Comments Source section [id number] [facility] TM,[facility] Cholecystectomy [id number] [facility], [facility] Hern[facility] repair [id number] [facility], [facility] Mastectomy [id number] [facility], [facility] section [id number] [facility] Cholecystectomy [id number] [facility] Hernia repair [id number] [facility] Mastectomy [id number] [facility] Assessment and Plan No Data Provided for This Section Plan of Care No Data Provided for This Section Social History Social History Date Source Social History TypeResponse 01/11/2017 [facility] Social History TypeResponse 10/08/2016 [facility] Social History TypeResponse 12/15/2014 [facility] Family History No Data Provided for This Section Advance Directives No Data Provided for This Section Functional Status No Data Provided for This Section
--- OUTSIDE RECORDS SUMMARY | 2019-02-12 08:54 | XMS REPORT | Clinical Summary ---
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 Angle Shear Operator Name Role Phone Asked, No Pcp PCP [...] Health Maintenance Due Date Last Done Comments CERVICAL CANCER SCREENING 1982 BREAST CANCER SCREENING 09/29/2011 COLONOSCOPY SCREENING 09/29/2011 SHINGLES VACCINES (#1) 09/29/2011 INFLUENZA VACCINE 01/11/2019 Results Not on fileafter 02/11/2018 Insurance Type Payer Benefit Subscriber ID Effective Phone Address Plan / Dates Group PPO AETNA AETNA PPO xxxxxxxxxx 2005-P OPEN resent CHOICE HMO AETNA AETNA xxxxxxxxxx 2005-P HMO,POS,EP resent O, [facility] Advance Directives For more information, please contact: [phone] Patient Plasterer Helper Explanation Type Date Recorded Advance Directives, Living Will and Medical Power of Wildlife Forensic Geneticist
--- OUTSIDE RECORDS SUMMARY | 2019-02-12 08:56 | XMS REPORT | Continuity of Care Document ---
Author Author [employer] Organization [employer] Address Unknown Phone Unavailable Care Team Providers Care Reproducer Name Role Phone [employer] Unavailable Unavailable Problems Problem Status Onset Date Classification Date Reported Comments Source MORBID OBERSITY E66.01 Active 01/10/2017 [facility] E66.01 MORBID OBESITY Active 11/04/2016 [facility] [id number] Active 2016 [facility] ACUTE RLL PNEUMONIA Active 10/20/2012 [facility] BRONCHITIS Active 10/20/2012 [facility] 466.0 - ACUTE BRONCHITI Active 10/13/2012 [facility] LEFT BREASTS CANCER 174.9, 611.0 Active 10/25/2011 [facility] Bilateral mastectomy Active 05/21/2010 Problem 10/26/2012 [facility] Breast reconstruction with latissimus dorsi flap with implant Active 05/21/2010 Problem 10/26[facility] Bilateral mastectomy (procedure) Active 05/21/2010 Problem 01/13/2017 [facility] Breast reconstruction with latissimus dorsi flap with implant (procedure) Active 05/21/2010 Problem 01/13/2017 [facility] Hypertension Resolved Problem 10/26/2012 MARION [facility] Hypothyroid Active Problem 10/26/2012 MARION [facility] Malignant tumor of breast (disorder) Resolved Problem 01/13/2017 [facility] Hypertensive disorder, systemic arterial (disorder) Resolved Problem 01/13/2017 [facility] Hypothyroidism (disorder) Active Problem 01/13/2017 [facility] Breast cancer Resolved Problem 10/26/2012 [facility] PNEUMONIA, ORGANISM NOS Active [facility] RT KNEE PAIN Active [facility] JOINT DIS NOS-L/LEG Active [facility] MORBID (SEVERE) OBESITY DUE TO EXCESS CA Active [facility] Medications Medication Details Route Status Patient Instructions Ordering Provider Order Date Source diltiazem 360 mg/24 hours oral capsule, extended release 360 mg=1 cap, PO, Daily, 0 Refill(s) Active 10/08/2016 [facility] atorvastatin 80 mg oral tablet 80 mg=1 tab, PO, Daily, 0 Refill(s) Active 10/08/2016 [facility] Sertraline 100 MG Oral Tablet [Zoloft] 100 mg=1 tab, PO, Daily, 0 Refill(s) Active 10/08/2016 [facility] Hydrochlorothiazide 12.5 MG / Lisinopril 20 MG Oral Tablet 1 tab, PO, Daily, 0 Refill(s) Active 10/08/2016 [facility] pneumococcal 23-valent vaccine 0.5 ml, Route: IM, ONCALL, Start date: 10/24/12 15:27:17, Stop date: 11/23/12 15:22:17 Inactive SYSTEM 10/24/2012 MARION Castrejon,[facility] Robitussin-DM 10 mL, Route: PO, Drug Form: LIQ, Q6H-02, Start date: 10/23/12 20:00:00, Duration: 30 day, Stop date: 11/22/12 14:00:00 PO No Longer Active [facility] 10/24/2012 [facility] Tessalon Perles 200 mg, 2 cap, Route: PO, Drug form: CAP, TID, Start date: 10/23/12 19:22:00, Duration: 30 day, Stop date: 11/22/12 17:00:00 PO No Longer Active [facility] 10/24/2012 [facility] predniSONE 40 mg, 2 tab, Route: PO, Drug form: TAB, Daily, Start date: 10/23/12 9:00:00, Duration: 30 day, Stop date: 11/21/12 9:00:00 PO No Longer Active Jason 10/23/2012 [facility] Robitussin-DM 10 mL, Route: PO, Drug Form: LIQ, Q6H, PRN Cough, Start date: 10/22/12 20:00:00, Duration: 30 day, Stop date: 11/21/12 19:59:00 PO No Longer Active [facility] 10/23/2012 [facility] Robitussin-DM 10 mL, Route: PO, Drug Form: LIQ, ONCE, Start date: 10/22/12 14:00:00, Stop date: 10/22/12 14:00:00 PO No Longer Active [facility] 10/22/2012 [facility] lactulose 15 gm, 22.5 mL, Route: PO, Drug form: SYRP, ONCE, Start date: 10/22/12 13:34:00, Stop date: 10/22/12 13:34:00 PO No Longer Active [facility] 10/22/2012 [facility] Cymbalta 60 mg, 1 cap, Route: PO, Drug form: DRC, Daily, Start date: 10/22/12 9:00:00, Duration: 30 day, Stop date: 11/20/12 9:00:00 PO No Longer Active [facility] 10/22/2012 [facility] levofloxacin 750 mg, 1 tab, Route: PO, Drug form: TAB, Q24H, Start date: 10/22/12 2:00:00, Duration: 30 day, Stop date: 11/20/12 2:00:00 PO No Longer Active [facility] 10/22/2012 [facility] methylPREDNISolone 125 mg, 2 mL, Route: IV, Drug form: INJ, Q24H, Start date: 10/22/12 0:00:00, Duration: 30 day, Stop date: 11/20/12 0:00:00 IV No Longer Active [facility] 10/22/2012 [facility] budesonide-formoterol 160 mcg-4.5 mcg/inh inhalation aerosol with adapter 1 inhalation, Route: INHALATION, Drug Form: AERO/A, RBID, Start date: 10/21/12 20:00:00, Duration: 30 day, Stop date: 11/20/12 8:00:00 INHALATION No Longer Active [facility] 10/22/2012 [facility] Norvasc 10 mg, 1 tab, Route: PO, Drug form: TAB, Q24H, Start date: 10/21/12 13:00:00, Duration: 30 day, Stop date: 11/19/12 13:00:00 PO No Longer Active [facility] 10/21/2012 [facility] Sodium Chloride 0.9% IV 1,000 mL 1,000 mL, Rate: 50 ml/hr, Infuse over: 20 hr, Route: IV, Dosing Weight 104.119 kg, Total Volume: 1,000, Start date: 10/21/12 12:44:00, Duration: 1 doses or times, Stop date: 10/22/12 8:43:00 IV No Longer Active [facility] 10/21/2012 [facility] Lovenox 40 mg, 0.4 mL, Route: SUB-Q, Drug form: INJ, Daily, Start date: 10/21/12 9:00:00, Duration: 30 day, Stop date: 11/19/12 9:00:00 SUB-Q No Longer Active [facility] 10/21/2012 [facility] Pepcid 20 mg, 1 tab, Route: PO, Drug form: TAB, Q12H, Start date: 10/21/12 9:00:00, Duration: 30 day, Stop date: 11/19/12 21:00:00 PO No Longer Active [facility] 10/21/2012 [facility] Levaquin 750 mg, 150 mL, Route: IV, Drug form: SOLN, ONCE, Start date: 10/21/12 2:15:00, Stop date: 10/21/12 2:15:00 IV No Longer Active [facility] 10/21/2012 [facility] DuoNeb inhalation solution 3 mL, Route: NEB, Drug Form: SOLN, RQ6H, PRN Wheezing, Start date: 10/21/12 1:54:00, Duration: 30 day, Stop date: 11/20/12 1:53:00 NEB No Longer Active [facility] 10/21/2012 [facility] Robitussin 200 mg, 10 mL, Route: PO, Drug form: SYRP, Q4H, PRN Cough, Start date: 10/21/12 1:51:00, Duration: 30 day, Stop date: 11/20/12 1:50:00 PO No Longer Active [facility] 10/21/2012 [facility] Sodium Chloride 0.9% IV 250 mL, Route: IVPB, Start date: 10/21/12 1:51:00, Duration: 30 day, Stop date: 11/20/12 1:50:00, PRN Line Flush IVPB No Longer Active [facility] 10/21/2012 [facility] BD Normal Saline Flush 10 mL, Route: IVP, Drug Form: INJ, PRN, PRN Line Flush, Start date: 10/21/12 1:51:00, Duration: 30 day, Stop date: 11/20/12 1:50:00 IVP No Longer Active [facility] 10/21/2012 [facility] SoluMedrol 125 mg, Route: IV, ONCE, Dosing Weight 106.818, kg, Start date: 10/21/12 0:56:00, Stop date: 10/21/12 0:56:00 IV No Longer Active [facility] 10/21/2012 [facility] vancomycin 1 gm, 200 mL, Route: IVPB, Drug form: INJ, ONCE, Dosing Weight 106.818, kg, Priority: STAT, Start date: 10/20/12 23:24:00, Stop date: 10/20/12 23:24:00 IVPB No Longer Active [facility]iset[facility] 10/21/2012 [facility] cefepime + Sodium Chloride 0.9% IV 100 mL 2 gm, Route: IVPB, Drug form: INJ, ONCE, Dosing Weight 106.818, kg, Priority: STAT, Start date: 10/20/12 23:24:00, Stop date: 10/20/12 23:24:00 IVPB No Longer Active Lagise10/21/2012 [facility] [place] 5/325 oral tablet 1 tab, Route: PO, Drug Form: TAB, Dosing Weight 106.818, kg, ONCE, Start date: 10/20/12 23:11:00, Stop date: 10/20/12 23:11:00 PO No Longer Active Lagisetty 10/21/2012 [facility] ibuprofen 800 mg, 1 tab, Route: PO, Drug form: TAB, ONCE, Dosing Weight 106.818, kg, Priority: STAT, Start date: 10/20/12 23:11:00, Stop date: 10/20/12 23:11:00 PO No Longer Active Lagisey 10/21/2012 [facility] ibuprofen 600 mg, 1 tab, Route: PO, Drug form: TAB, ONCE, Dosing Weight 106.818, kg, Priority: STAT, Start date: 10/20/12 23:08:00, Stop date: 10/20/12 23:08:00 PO No Longer Active Lagisetty 10/21/2012 [facility] [place] 5/325 oral tablet 1 tab, Route: PO, Drug Form: TAB, Dosing Weight 106.818, kg, ONCE, STAT, Start date: 10/20/12 23:08:00, Stop date: 10/20/12 23:08:00 PO No Longer Active Poppyise10/21/2012 [facility] ipratropium 0.5 mg, 2.5 mL, Route: NEB, Drug form: SOLN, Q15Min, Dosing Weight 106.818, kg, Priority: STAT, Start date: 10/20/12 22:12:00, Duration: 2 doses or times, Stop date: 10/20/12 22:27:00 NEB No Longer Active Vernontim 10/21/2012 [facility] albuterol 0.083% inhalation solution 2.49 mg, 3 mL, Route: NEB, Drug form: SOLN, Q15Min, Dosing Weight 106.818, kg, Priority: STAT, Start date: 10/20/12 22:12:00, Duration: 2 doses or times, Stop date: 10/20/12 22:27:00 NEB No Longer Active Vernontim 10/21/2012 [facility] Allergies, Adverse Reactions, Alerts Substance Category Reaction Severity Reaction type Status Date Reported Comments Source NKFA Assertion Drug allergy Active [facility] Immunizations Immunization Date Given Site Status Last Updated Comments Source pneumococcal 23-valent vaccine 10/24/2012 Left Deltoid completed Anu [facility] pneumococcal 23-valent vaccine 10/24/2012 completed Anu MARION Castrejon,[facility] Results Order Name Results Value [...] should be multiplied by the estimated BMI. [facility] CHEMISTRY Creatinine Lvl 0.8 0.5 - 1.4 10/24/2012 Normal [facility] CHEMISTRY Sodium Lvl 141 135 - 145 10/24/2012 Normal [facility] CHEMISTRY Glucose Lvl 65 70 - 99 10/24/2012 LOW <sup>5</sup>Interpretive Data: Adult reference range values reflect the clinical guidelines
of the [place] [employer]. [facility] CHEMISTRY Potassium Lvl 3.7 3.5 - 5.1 10/24/2012 Normal [facility] CHEMISTRY AGAP 13.7 10.0 - 20.0 10/24/2012 Normal [facility] CHEMISTRY Calcium Lvl 8.6 8.5 - 10.5 10/24/2012 Normal [facility] CHEMISTRY Chloride Lvl 104 95 - 109 10/24/2012 Normal [facility] CHEMISTRY BUN 19 7 - 22 10/24/2012 Normal [facility] CHEMISTRY CO2 27 24 - 32 10/24/2012 Normal [facility] HEMATOLOGY WBC 11.6 3.7 - 10.4 10/24/2012 HI [facility] HEMATOLOGY MCV 84.4 81.0 - 99.0 10/24/2012 Normal [facility] HEMATOLOGY Hct 33.0 36.0 - 48.0 10/24/2012 LOW [facility] HEMATOLOGY Hgb 10.9 12.0 - 16.0 10/24/2012 LOW [facility] HEMATOLOGY RBC 3.90 4.20 - 5.40 10/24/2012 LOW [facility] HEMATOLOGY MPV 8.2 7.4 - 10.4 10/24/2012 Normal [facility] HEMATOLOGY Platelet 384 133 - 450 10/24/2012 Normal [facility] HEMATOLOGY MCHC 32.9 32.0 - 36.0 10/24/2012 Normal [facility] HEMATOLOGY MCH 27.8 27.0 - 31.0 10/24/2012 Normal [facility] HEMATOLOGY RDW 15.2 11.5 - 14.5 10/24/2012 [facility] HEMATOLOGY Polychrom Slight (10/24/2012 05:10:00) None Seen 10/24/2012 Normal [facility] HEMATOLOGY Lymphocytes 20.5 20.0 - 40.0 10/24/2012 Normal [facility] HEMATOLOGY Eosinophils 0.0 0.0 - 4.0 10/24/2012 Normal [facility] HEMATOLOGY Basophils 0.3 0.0 - 1.0 10/24/2012 Normal [facility] HEMATOLOGY Monocytes 8.7 2.0 - 12.0 10/24/2012 Normal [facility] HEMATOLOGY Segs 70.5 45.0 - 75.0 10/24/2012 Normal [facility] HEMATOLOGY Segs-Bands # 8.2 1.5 - 8.1 10/24/2012 HI [facility] HEMATOLOGY Lymphocytes # 2.4 1.0 - 5.5 10/24/2012 Normal [facility] HEMATOLOGY Monocytes # 1.0 0.0 - 0.8 10/24/2012 HI [facility] HEMATOLOGY Eosinophils # 0.0 0.0 - 0.5 10/24/2012 Normal [facility] HEMATOLOGY Basophils # 0.0 0.0 - 0.2 10/24/2012 Normal [facility] CHEMISTRY eGFR 77 10/23/2012 NA [...] should be multiplied by the estimated BMI. [facility] CHEMISTRY Sodium Lvl 140 135 - 145 10/23/2012 Normal [facility] CHEMISTRY Glucose Lvl 110 70 - 99 10/23/2012 [place] <sup>6</sup>Interpretive Data: Adult reference range values reflect the clinical guidelines
of the [place] [employer]. [facility] CHEMISTRY Creatinine Lvl 1.0 0.5 - 1.4 10/23/2012 Normal [facility] CHEMISTRY BUN 24 7 - 22 10/23/2012 HI [facility] CHEMISTRY Calcium Lvl 9.1 8.5 - 10.5 10/23/2012 Normal [facility] CHEMISTRY Potassium Lvl 3.7 3.5 - 5.1 10/23/2012 Normal [facility] CHEMISTRY CO2 21 24 - 32 10/23/2012 LOW [facility] CHEMISTRY Chloride Lvl 105 95 - 109 10/23/2012 Normal [facility] CHEMISTRY AGAP 17.7 10.0 - 20.0 10/23/2012 Normal [facility] HEMATOLOGY Basophils 0.0 0.0 - 1.0 10/23/2012 [facility] [place] Eosinophils 0.0 0.0 - 4.0 10/23/2012 [facility] [place] Monocytes 5.7 2.0 - 12.0 10/23/2012 [facility] [place] Lymphocytes 8.1 20.0 - 40.0 10/23/2012 [facility] HEMATOLOGY Segs 86.2 45.0 - 75.0 10/23/2012 [facility] HEMATOLOGY Basophils # 0.0 0.0 - 0.2 10/23/2012 Normal [facility] HEMATOLOGY Eosinophils # 0.0 0.0 - 0.5 10/23/2012 [facility] [place] Monocytes # 1.1 0.0 - 0.8 10/23/2012 [facility] HEMATOLOGY Lymphocytes # 1.5 1.0 - 5.5 10/23/2012 [facility] [place] Segs-Bands # 16.3 1.5 - 8.1 10/23/2012 [facility] HEMATOLOGY MPV 7.9 7.4 - 10.4 10/23/2012 [facility] [place] Platelet 394 133 - 450 10/23/2012 [facility] [place] RDW 15.4 11.5 - 14.5 10/23/2012 [facility] HEMATOLOGY MCHC 33.1 32.0 - 36.0 10/23/2012 [facility] [place] MCH 27.8 27.0 - 31.0 10/23/2012 [facility] [place] MCV 84.0 81.0 - 99.0 10/23/2012 Normal [facility] HEMATOLOGY Hct 35.4 36.0 - 48.0 10/23/2012 [facility] HEMATOLOGY Hgb 11.7 12.0 - 16.0 10/23/2012 [facility] HEMATOLOGY RBC 4.21 4.20 - 5.40 10/23/2012 [facility] [place] WBC 19.0 3.7 - 10.4 10/23/2012 [facility] CHEMISTRY Hgb A1C 5.7 10/22/2012 NA [...] 240 Poor Control, take action to lower [facility] CHEMISTRY Magnesium Lvl 2.1 1.8 - 2.4 10/22/2012 Normal [facility] CHEMISTRY eGFR 116 10/22/2012 NA [...] should be multiplied by the estimated BMI. [facility] CHEMISTRY Potassium Lvl 4.5 3.5 - 5.1 10/22/2012 Normal [facility] CHEMISTRY Sodium Lvl 142 135 - 145 10/22/2012 Normal [facility] CHEMISTRY Creatinine Lvl 0.7 0.5 - 1.4 10/22/2012 Normal [facility] CHEMISTRY Chloride Lvl 103 95 - 109 10/22/2012 Normal [facility] CHEMISTRY Glucose Lvl 121 70 - 99 10/22/2012 [place] <sup>7</sup>Interpretive Data: Adult reference range values reflect the clinical guidelines
of the [place] [employer]. [facility] CHEMISTRY Alk Phos 47 39 - 136 10/22/2012 Normal [facility] CHEMISTRY BUN 14 7 - 22 10/22/2012 Normal [facility] CHEMISTRY ALT 56 0 - 65 10/22/2012 Normal [facility] CHEMISTRY CO2 21 24 - 32 10/22/2012 LOW [facility] CHEMISTRY Albumin Lvl 3.3 3.5 - 5.0 10/22/2012 LOW [facility] CHEMISTRY AGAP 22.5 10.0 - 20.0 10/22/2012 [facility] CHEMISTRY Total Protein 7.9 6.4 - 8.4 10/22/2012 Normal [facility] CHEMISTRY Globulin 4.6 2.0 - 4.0 10/22/2012 [facility] CHEMISTRY B/C Ratio 20 6 - 25 10/22/2012 Normal [facility] CHEMISTRY Bili Total 0.4 0.2 - 1.3 10/22/2012 Normal [facility] CHEMISTRY Calcium Lvl 9.1 8.5 - 10.5 10/22/2012 Normal [facility] CHEMISTRY AST 32 0 - 37 10/22/2012 Normal [facility] CHEMISTRY A/G Ratio 0.7 0.7 - 1.6 10/22/2012 Normal [facility] HEMATOLOGY MCH 28.1 27.0 - 31.0 10/22/2012 Normal [facility] HEMATOLOGY MCV 84.2 81.0 - 99.0 10/22/2012 Normal [facility] HEMATOLOGY RBC 4.28 4.20 - 5.40 10/22/2012 Normal [facility] HEMATOLOGY Hgb 12.1 12.0 - 16.0 10/22/2012 [facility] [place] Hct 36.1 36.0 - 48.0 10/22/2012 Normal [facility] HEMATOLOGY MPV 8.5 7.4 - 10.4 10/22/2012 Normal [facility] HEMATOLOGY MCHC 33.5 32.0 - 36.0 10/22/2012 Normal [facility] HEMATOLOGY RDW 15.0 11.5 - 14.5 10/22/2012 [facility] HEMATOLOGY Platelet 375 133 - 450 10/22/2012 Normal [facility] HEMATOLOGY WBC 14.7 3.7 - 10.4 10/22/2012 [facility] HEMATOLOGY Eosinophils 0.0 0.0 - 4.0 10/22/2012 Normal [facility] HEMATOLOGY Segs 88.9 45.0 - 75.0 10/22/2012 [facility] HEMATOLOGY Lymphocytes 9.5 20.0 - 40.0 10/22/2012 LOW [facility] HEMATOLOGY Monocytes 1.5 2.0 - 12.0 10/22/2012 LOW [facility] HEMATOLOGY Lymphocytes # 1.4 1.0 - 5.5 10/22/2012 Normal [facility] HEMATOLOGY Monocytes # 0.2 0.0 - 0.8 10/22/2012 Normal [facility] HEMATOLOGY Eosinophils # 0.0 0.0 - 0.5 10/22/2012 Normal [facility] HEMATOLOGY Basophils 0.1 0.0 - 1.0 10/22/2012 Normal [facility] HEMATOLOGY Segs-Bands # 13.1 1.5 - 8.1 10/22/2012 HI [facility] HEMATOLOGY Basophils # 0.0 0.0 - 0.2 10/22/2012 Normal [facility] CHEMISTRY Total Protein 7.9 6.4 - 8.4 10/21/2012 Normal [facility] CHEMISTRY Bili Total 0.5 0.2 - 1.3 10/21/2012 Normal [facility] CHEMISTRY Globulin 4.6 2.0 - 4.0 10/21/2012 [facility] CHEMISTRY B/C Ratio 7 6 - 25 10/21/2012 Normal [facility] CHEMISTRY AST 110 0 - 37 10/21/2012 [facility] CHEMISTRY A/G Ratio 0.7 0.7 - 1.6 10/21/2012 Normal [facility] CHEMISTRY ALT 86 0 - 65 10/21/2012 [facility] CHEMISTRY Alk Phos 64 39 - 136 10/21/2012 Normal [facility] CHEMISTRY Albumin Lvl 3.3 3.5 - 5.0 10/21/2012 LOW [facility] HEMATOLOGY Sed Rate 45 0 - 20 10/21/2012 [facility] HEMATOLOGY Plt Morph Normal (10/21/2012 09:00:00) 10/21/2012 Normal [facility] HEMATOLOGY RBC Morph Normal (10/21/2012 09:00:00) 10/21/2012 Normal [facility] IMMUNOLOGY HIV 1/2 Ab Negative *NA* (10/21/2012 09:00:00) Negative 10/21/2012 [facility] Microbiology Culture: Respiratory w/Gram Stain 10/21/2012 [facility] BACTERIAL - SEROLOGY U S pneumo Ag Negative (10/21/2012 05:30:21) Negative 10/21/2012 Normal [facility] MICRO MISC - SEROLOGY U Legion Ag Negative 1 (10/21/2012 05:30:21) Negative 10/21/2012 Normal <sup>1</sup>Interpretive Data: This kit tests for Legionella pneumophila Serogroup 1 Antigen. [facility] Microbiology Culture: Blood 10/21/2012 [facility] CHEMISTRY Lactic Acid Lvl 2.1 0.5 - 2.2 10/21/2012 Normal [facility] Microbiology Culture: Blood 10/21/2012 [facility] CHEMISTRY Temp Art 37.0 10/21/2012 [facility] CHEMISTRY Mode Art Rm Air (10/20/2012 23:24:00) 10/21/2012 Normal [facility] CHEMISTRY O2 Sat Art 94.4 95.0 - 100.0 10/21/2012 LOW [facility] CHEMISTRY HCO3 Art 26 22 - 26 10/21/2012 Normal [facility] CHEMISTRY BE Art 1 -2-2 - 2 10/21/2012 Normal [facility] CHEMISTRY pCO2 Art 40 35 - 45 10/21/2012 Normal [facility] CHEMISTRY pO2 Art 71 80 - 100 10/21/2012 LOW [facility] CHEMISTRY pH Art 7.42 7.35 - 7.45 10/21/2012 Normal [facility] CHEMISTRY CK MB Index <0.4 0.0 - 2.5 10/21/2012 Normal [facility] CHEMISTRY Troponin-I <0.02 0.00 - 0.40 10/21/2012 Normal [facility] CHEMISTRY B/C Ratio 8 6 - 25 10/21/2012 Normal [facility] CHEMISTRY Globulin 4.9 2.0 - 4.0 10/21/2012 HI [facility] CHEMISTRY A/G Ratio 0.7 0.7 - 1.6 10/21/2012 Normal [facility] CHEMISTRY AST 15 0 - 37 10/21/2012 Normal [facility] CHEMISTRY Alk Phos 55 39 - 136 10/21/2012 Normal [facility] CHEMISTRY ALT 39 0 - 65 10/21/2012 Normal [facility] CHEMISTRY Albumin Lvl 3.5 3.5 - 5.0 10/21/2012 Normal [facility] CHEMISTRY Bili Total 0.4 0.2 - 1.3 10/21/2012 Normal [facility] CHEMISTRY Total Protein 8.4 6.4 - 8.4 10/21/2012 Normal [facility] CHEMISTRY CK MB <0.5 0.5 - 3.6 10/21/2012 Normal [facility] CHEMISTRY Total CK 117 12 - 191 10/21/2012 Normal [facility] Pathology Reports No Data Provided [...] the possibility of a mass. SL: 10/24/2012 [facility] Chest 2 views Two views chest. HISTORY: Pneumonia. Comparison 10/20/2012. Right lower lobe opacity persists. Consider pneumonia. No pleural effusion. Heart size normal. SL: 10/21/2012 [facility] Chest 2 views EXAMINATION: Chest [...] or focal osseous lesion is appreciated. SL:10/20/2012 [facility] Consultation Notes No Data Provided for This Section Discharge Summaries No Data Provided for This Section History and Physicals No Data Provided for This Section Vital Signs Vital Sign Value Date Comments Source Height 152.4 cm 10/08/2016 [facility] Weight 112.727 10/08/2016 [facility] BMI Calculated 48.54 10/08/2016 [facility] Respitory Rate 20 10/24/2012 [facility] Diastolic (mm Hg) 89 10/24/2012 [facility] Systolic (mm Hg) 139 10/24/2012 [facility] Heart Rate 90 10/24/2012 [facility] Temperature Oral (F) 98.5 F 10/24/2012 [facility] Diastolic (mm Hg) 92 10/24/2012 [facility] Systolic (mm Hg) 153 10/24/2012 [facility] Respitory Rate 20 10/24/2012 [facility] Temperature Oral (F) 98.6 F 10/24/2012 [facility] Heart Rate 89 10/24/2012 [facility] Heart Rate 87 10/24/2012 [facility] Respitory Rate 20 10/24/2012 [facility] Temperature Oral (F) 98.4 F 10/24/2012 [facility] Diastolic (mm Hg) 88 10/24/2012 [facility] Systolic (mm Hg) 138 10/24/2012 [facility] Weight 104.119 10/21/2012 [facility] Height 152.4 cm 10/21/2012 [facility] Weight 106.818 10/21/2012 [facility] Height 152.4 cm 10/21/2012 [facility] Encounters Location Location Details Encounter Type Encounter Number Reason For Visit Attending Provider ADM Date DC Date Status Source [facility] Outpatient [id number] LEFT BREASTS CANCER 174.9, 611.0 SHAHE VARTIVARIAN 10/26/2011 10/26/2011 Active [facility] OD [id number] 466.0 - ACUTE BRONCHITI RADHA BELINDA 10/16/2012 Active [facility] [place] 2] Inpatient [id number] TALI EDWARDS 10/20/2012 10/24/2012 Discharged [facility] OP Therapy Patients [id number] Mihir Pantoja 10/16/2014 11/15/2014 [facility] OP Therapy Patients [id number] Mihir Pantoja 11/15/2014 12/15/2014 [facility] Outpatient [id number] Velasquez Lawanda 10/07/2016 10/08/2016 [facility] Bedded Outpatient [id number] Velasquez Lawanda 10/08/2016 10/08/2016 [facility] Outpatient [id number] Velasquez Lawanda 11/04/2016 11/05/2016 [facility] Outpatient [id number] Velasquez Lawanda 12/09/2016 12/10/2016 [facility] Outpatient [id number] Velasquez Lawanda 01/10/2017 01/11/2017 [facility] Procedures Procedure Code Date Perfomer Comments Source section [id number] [facility] TM,[facility] Cholecystectomy [id number] [facility], [facility] Hernia repair [id number] [facility], [facility] Mastectomy [id number] [facility], [facility] section [id number] [facility] Cholecystectomy [id number] [facility] Hernia repair [id number] [facility] Mastectomy [id number] [facility] Assessment and Plan No Data Provided for This Section Plan of Care No Data Provided for This Section Social History Social History Date Source Social History TypeResponse 01/11/2017 [facility] Social History TypeResponse 10/08/2016 [facility] Social History TypeResponse 12/15/2014 [facility] Family History No Data Provided for This Section Advance Directives No Data Provided for This Section Functional Status No Data Provided for This Section
--- OUTSIDE RECORDS SUMMARY | 2019-02-12 08:56 | XMS REPORT | Clinical Summary ---
Author Author [employer] Organization [employer] Address Unknown Phone Unavailable Care Team Providers Care Guest Relations Agent Name Role Phone Asked, No Pcp PCP [...] Advance Directives For more information, please contact: [phone] Patient Fitter Armament Explanation Type Date Recorded Advance Directives, Living Will and Medical Power of Property Caretaker
[2019-02-12 09:27] LABS: BASOPHILS # (AUTO) 0.1 (0.0-0.1); BASOPHILS % 0.6 % (0.0-1.0); EOSINOPHILS % 0.4 % (0.0-6.0); HEMATOCRIT 41.7 % (34.2-44.1); HEMOGLOBIN 13.3 g/dL (12.0-16.0); LYMPHOCYTES % 25.2 % (18.0-39.1); MEAN CORPUSCULAR HEMOGLOBIN 27.9 pg (28-32); MEAN CORPUSCULAR HGB CONC 31.9 g/dL (31-35); MEAN CORPUSCULAR VOLUME 87.6 fL (81-99); MONOCYTES # (AUTO) 0.7 (0.2-0.8); MONOCYTES % 8.5 % (4.4-11.3); NEUTROPHILS # (AUTO) 5.2 (2.1-6.9); NEUTROPHILS % 65.1 % (38.7-80.0); PLATELET COUNT 362 x10e3/uL (140-360); RED BLOOD COUNT 4.76 x10e6/uL (3.6-5.1); RED CELL DISTRIBUTION WIDTH 14.5 % (11.7-14.4)
[2019-02-12] MEDS ORDERED: SODIUM CHLORIDE 0.9% 1000ML 1,000 ML IV ONE (09:30)
[2019-02-12] MEDS ORDERED: KETOROLAC TROMETHAMINE 30 MG/ML VIAL IV ONE (10:00)
[2019-02-12 10:15] LABS: BILIRUBIN,URINE MODERATE (NEGATIVE); CLARITY,URINE CLOUDY (CLEAR); COLOR,URINE YELLOW (YELLOW); KETONES,URINE 1+ (NEGATIVE); LEUKOCYTE ESTERASE ,URINE NEGATIVE (NEGATIVE); NITRITE,URINE NEGATIVE (NEGATIVE); PROTEIN,URINE DIPSTICK 2+ (NEGATIVE); URINE UROBILINOGEN 1 mg/dL (0.2 - 1)
[2019-02-12 10:42] LABS: RBC,URINE 0-5 /HPF (0-5)
[2019-02-12 10:43] LABS: AMORPHOUS SEDIMENT,URINE FEW (FEW); BACTERIA,URINE MANY /HPF; EPITHELIAL CELLS,URINE MODERATE /LPF; MUCUS,URINE MODERATE (RARE)
[2019-02-12 10:48] LABS: ALANINE AMINOTRANSFERASE 27 IU/L (0-55); ALBUMIN 2.9 g/dL (3.5-5.0); ALBUMIN/GLOBULIN RATIO 0.9 (0.8-2.0); ALKALINE PHOSPHATASE 29 IU/L (40-150); ANION GAP 16.4 mmol/L (8-16); BLOOD UREA NITROGEN 21 mg/dL (7-26); BUN/CREATININE RATIO 30 (6-25); CALCIUM 8.8 mg/dL (8.4-10.2); CARBON DIOXIDE 20 mmol/L (22-29); CHLORIDE 108 mmol/L (98-107); CREATININE, SERUM 0.71 mg/dL (0.57-1.11); EST GLOMERULAR FILTRATION RATE > 60 ML/MIN (60-); GLUCOSE 84 mg/dL (74-118); POTASSIUM 3.4 mmol/L (3.5-5.1); SODIUM 141 mmol/L (136-145)
--- NOTE | 2019-02-12 11:22 | NUR ---
radiology coming to get pt for ct
--- NOTE | 2019-02-12 12:08 | Diagnostic Imaging Report ---
EXAM: CT of the abdomen and pelvis WITH contrast HISTORY: Vomiting, abdominal pain, history of gastric sleeve January 29, 2018, prior hysterectomy. COMPARISON: None. TECHNIQUE: The abdomen and pelvis were scanned utilizing a multidetector helical scanner. Coronal and sagittal reformats are provided. PROTOCOL: Routine IV CONTRAST: 100 cc of Isovue-370. ORAL CONTRAST: None, which limits sensitivity and specificity of the exam. RADIATION DOSE: Total DLP: 767.94 mGy*cm Estimated effective dose: (DLP x 0.015 x size factor) Dose modulation, iterative reconstruction, and/or weight based adjustment of the mA/kV was utilized to reduce the radiation dose to as low as reasonably achievable. COMPLICATIONS: None FINDINGS: LOWER THORAX: Unremarkable. HEPATOBILIARY: No mass. No biliary dilation. Cholecystectomy clips. Prominence of the common bile duct and central intrahepatic biliary ducts. SPLEEN: No splenomegaly. PANCREAS: No focal masses or ductal dilatation. ADRENALS: No discrete adrenal nodule. KIDNEYS/URETERS: No hydronephrosis, stones, or definite solid mass lesions. PELVIC ORGANS/BLADDER: The urinary bladder is decompressed. GI TRACT: No dilation or wall thickening identified. The appendix is normal. Findings compatible with reported history of gastric sleeve. PERITONEUM / RETROPERITONEUM: No free air or fluid. LYMPH NODES: No pathologically enlarged lymph node. VESSELS: A 7 mm curvilinear calcification of a right renal artery adjacent to the superior pole. BONES and JOINTS: No aggressive osseous lesion or acute fracture. 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 SOFT TISSUES: A small fat-containing left anterolateral abdominal wall hernia (series 2 image 39), no associated inflammatory changes. A small fat-containing left supraumbilical hernia (series 2 image 48), no associated inflammatory changes. IMPRESSION: 1. Postsurgical changes, no evidence of bowel obstruction or ileus. 2. Prominence of the common bile duct and central intrahepatic biliary ducts likely secondary to reservoir effect from prior cholecystectomy, a common postsurgical findings. However, correlate with laboratory values to exclude evidence of biliary obstruction. 3. Small fat-containing abdominal wall hernias without evidence of strangulation. 4. 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 Recommend surveillance follow-up CTA of the abdomen in one year to assess for stability. Signed by: Dr. Damien Ackerman D.O., M.M.M. on 02/12/2019 12:04 PM
[2019-02-12] MEDS ORDERED: IOPAMIDOL 370 MG/ML 200 ML INFUS..BTL INJ ONE (14:52)
[2019-02-12] MEDS ORDERED: SODIUM CHLORIDE 0.9% 50ML 50 ML ONE (14:52)
[2019-03-02] MEDS ORDERED: REGLAN5 MG PO (07:16)
[2019-03-02] MEDS ORDERED: FLAGYL500 MG PO (07:16)
[2019-03-02] MEDS ORDERED: ZOFRAN4 MG PO (07:16)
== END 2019-02-12 12:53 | disposition home or self-care (01) ==
LOC: ER 08:53
DX: R11.2 Nausea with vomiting, unspecified (principal); R10.11 Right upper quadrant pain; R10.84 Generalized abdominal pain; Z98.84 Bariatric surgery status; I10 Essential (primary) hypertension; F41.9 Anxiety disorder, unspecified; E78.5 Hyperlipidemia, unspecified
CPT/HCPCS: 36415; 74177; 80053; 81001; 85025; 99284; J1885; J7030; Q9967

== ENCOUNTER 2019-02-20 17:17 | Emergency (ER) | payer OTHER ==
[~2019-02-20] VITALS: Ht 152.4 cm; Wt 120.2 kg
--- OUTSIDE RECORDS SUMMARY | 2019-02-20 17:19 | XMS REPORT | Clinical Summary ---
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
--- OUTSIDE RECORDS SUMMARY | 2019-02-20 17:20 | XMS REPORT | Continuity of Care Document ---
Author Author [employer] Organization [employer] Address Unknown Phone Unavailable Care Team Providers Care Flux Mixer Name Role Phone Cumed Information Exchange Unavailable Unavailable Problems Problem Status Onset Date Classification Date Reported Comments Source MORBID OBERSITY E66.01 Active 01/10/2017 [facility] E66.01 MORBID OBESITY Active 11/04/2016 [facility] [id number] Active [address] [facility] ACUTE RLL PNEUMONIA Active 10/20/2012 [facility] BRONCHITIS Active 10/20/2012 [facility] 466.0 - ACUTE BRONCHITI Active 10/13/2012 [facility] LEFT BREASTS CANCER 174.9, 611.0 Active 10/25/2011 [facility] Bilateral mastectomy Active 05/21/2010 Problem 10/26/2012 [facility] Breast reconstruction with latissimus dorsi flap with implant Active 05/21/2010 Problem 10/26/2012 [facility] Bilateral mastectomy (procedure) Active 05/21/2010 Problem 01/13/2017 [facility] Breast reconstruction with latissimus dorsi flap with implant (procedure) Active 05/21/2010 Problem 01/13/2017 [facility] Hypertension Resolved Problem 10/26/2012 [facility] Hypothyroid Active Problem 10/26/2012 [facility] Malignant tumor of breast (disorder) Resolved Problem 01/13/2017 [facility] Hypertensive disorder, systemic arterial (disorder) Resolved Problem 01/13/2017 [facility] Hypothyroidism (disorder) Active Problem 01/13/2017 [facility] Breast cancer Resolved Problem 10/26/2012 [facility] PNEUMONIA, ORGANISM NOS Active [facility] RT KNEE PAIN Active [facility] JOINT DIS NOS-L/LEG Active [facility] MORBID (SEVERE) OBESITY DUE TO EXCESS CA Active [place] Medications Medication Details Route Status Patient Instructions Ordering Provider Order Date Source diltiazem 360 mg/24 hours oral capsule, extended release 360 mg=1 cap, PO, Daily, 0 Refill(s) Active 10/08/[address] [facility] atorvastatin 80 mg oral tablet 80 mg=1 tab, PO, Daily, 0 Refill(s) Active 10/08/[address] [facility] Sertraline 100 MG Oral Tablet [Zoloft] 100 mg=1 tab, PO, Daily, 0 Refill(s) Active 10/08/[address] [facility] Hydrochlorothiazide 12.5 MG / Lisinopril 20 MG Oral Tablet 1 tab, PO, Daily, 0 Refill(s) Active 10/08/[address] [facility] pneumococcal 23-valent vaccine 0.5 ml, Route: IM, ONCALL, Start date: 10/24/12 15:27:17, Stop date: 11/23/12 15:22:17 Inactive SYSTEM 10/24/2012 MARION Castrejon,[facility] Robitussin-DM 10 mL, Route: PO, Drug Form: LIQ, Q6H-02, Start date: 10/23/12 20:00:00, Duration: 30 day, Stop date: 11/22/12 14:00:00 PO No Longer [facility]2012 [facility] Tessalon Perles 200 mg, 2 cap, Route: PO, Drug form: CAP, TID, Start date: 10/23/12 19:22:00, Duration: 30 day, Stop date: 11/22/12 17:00:00 PO No Longer [facility] 10/24/2012 [facility] predniSONE 40 mg, 2 tab, Route: PO, Drug form: TAB, Daily, Start date: 10/23/12 9:00:00, Duration: 30 day, Stop date: 11/21/12 9:00:00 PO No Longer Active Jason 10/23/2012 [facility] Robitussin-DM 10 mL, Route: PO, Drug Form: LIQ, Q6H, PRN Cough, Start date: 10/22/12 20:00:00, Duration: 30 day, Stop date: 11/21/12 19:59:00 PO No Longer Active [facility] 10/23/2012 [facility] Robitussin-DM 10 mL, Route: PO, Drug Form: LIQ, ONCE, Start date: 10/22/12 14:00:00, Stop date: 10/22/12 14:00:00 PO No Longer Active [facility] 10/22/2012 [facility] lactulose 15 gm, 22.5 mL, Route: PO, Drug form: SYRP, ONCE, Start date: 10/22/12 13:34:00, Stop date: 10/22/12 13:34:00 PO No Longer Active [facility] 10/22/2012 [facility] Cymbalta 60 mg, 1 cap, Route: PO, Drug form: DRC, Daily, Start date: 10/22/12 9:00:00, Duration: 30 day, Stop date: 11/20/12 9:00:00 PO No Longer Active [facility] 10/22/2012 [facility] levofloxacin 750 mg, 1 tab, Route: PO, Drug form: TAB, Q24H, Start date: 10/22/12 2:00:00, Duration: 30 day, Stop date: 11/20/12 2:00:00 PO No Longer Active [facility] 10/22/2012 [facility] methylPREDNISolone 125 mg, 2 mL, Route: IV, Drug form: INJ, Q24H, Start date: 10/22/12 0:00:00, Duration: 30 day, Stop date: 11/20/12 0:00:00 IV No Longer Active [facility] 10/22/2012 [facility] budesonide-formoterol 160 mcg-4.5 mcg/inh inhalation aerosol with adapter 1 inhalation, Route: INHALATION, Drug Form: AERO/A, RBID, Start date: 10/21/12 20:00:00, Duration: 30 day, Stop date: 11/20/12 8:00:00 INHALATION No Longer Active [facility] 10/22/2012 [facility] Norvasc 10 mg, 1 tab, Route: PO, Drug form: TAB, Q24H, Start date: 10/21/12 13:00:00, Duration: 30 day, Stop date: 11/19/12 13:00:00 PO No Longer Active [facility] 10/21/2012 [facility] Sodium Chloride 0.9% IV 1,000 mL 1,000 mL, Rate: 50 ml/hr, Infuse over: 20 hr, Route: IV, Dosing Weight 104.119 kg, Total Volume: 1,000, Start date: 10/21/12 12:44:00, Duration: 1 doses or times, Stop date: 10/22/12 8:43:00 IV No Longer Active [facility] 10/21/2012 [facility] Lovenox 40 mg, 0.4 mL, Route: SUB-Q, Drug form: INJ, Daily, Start date: 10/21/12 9:00:00, Duration: 30 day, Stop date: 11/19/12 9:00:00 SUB-Q No Longer Active [facility] 10/21/2012 [facility] Pepcid 20 mg, 1 tab, Route: PO, Drug form: TAB, Q12H, Start date: 10/21/12 9:00:00, Duration: 30 day, Stop date: 11/19/12 21:00:00 PO No Longer Active [facility] 10/21/2012 [facility] Levaquin 750 mg, 150 mL, Route: IV, Drug form: SOLN, ONCE, Start date: 10/21/12 2:15:00, Stop date: 10/21/12 2:15:00 IV No Longer Active [facility] 10/21/2012 [facility] DuoNeb inhalation solution 3 mL, Route: NEB, Drug Form: SOLN, RQ6H, PRN Wheezing, Start date: 10/21/12 1:54:00, Duration: 30 day, Stop date: 11/20/12 1:53:00 NEB No Longer Active [facility] 10/21/2012 [facility] Robitussin 200 mg, 10 mL, Route: PO, Drug form: SYRP, Q4H, PRN Cough, Start date: 10/21/12 1:51:00, Duration: 30 day, Stop date: 11/20/12 1:50:00 PO No Longer Active [facility] 10/21/2012 [facility] Sodium Chloride 0.9% IV 250 mL, Route: IVPB, Start date: 10/21/12 1:51:00, Duration: 30 day, Stop date: 11/20/12 1:50:00, PRN Line Flush IVPB No Longer Active [facility] 10/21/2012 [facility] BD Normal Saline Flush 10 mL, Route: IVP, Drug Form: INJ, PRN, PRN Line Flush, Start date: 10/21/12 1:51:00, Duration: 30 day, Stop date: 11/20/12 1:50:00 IVP No Longer Active [facility] 10/21/2012 [facility] SoluMedrol 125 mg, Route: IV, ONCE, Dosing Weight 106.818, kg, Start date: 10/21/12 0:56:00, Stop date: 10/21/12 0:56:00 IV No Longer Active [facility] 10/21/2012 [facility] vancomycin 1 gm, 200 mL, Route: IVPB, Drug form: INJ, ONCE, Dosing Weight 106.818, kg, Priority: STAT, Start date: 10/20/12 23:24:00, Stop date: 10/20/12 23:24:00 IVPB No Longer Active [facility]iset[facility] 10/21/2012 [facility] cefepime + Sodium Chloride 0.9% IV 100 mL 2 gm, Route: IVPB, Drug form: INJ, ONCE, Dosing Weight 106.818, kg, Priority: STAT, Start date: 10/20/12 23:24:00, Stop date: 10/20/12 23:24:00 IVPB No Longer Active Lagise10/21/2012 [facility] [place] 5/325 oral tablet 1 tab, Route: PO, Drug Form: TAB, Dosing Weight 106.818, kg, ONCE, Start date: 10/20/12 23:11:00, Stop date: 10/20/12 23:11:00 PO No Longer Active Lagisetty 10/21/2012 [facility] ibuprofen 800 mg, 1 tab, Route: PO, Drug form: TAB, ONCE, Dosing Weight 106.818, kg, Priority: STAT, Start date: 10/20/12 23:11:00, Stop date: 10/20/12 23:11:00 PO No Longer Active Lagisey 10/21/2012 [facility] ibuprofen 600 mg, 1 tab, Route: PO, Drug form: TAB, ONCE, Dosing Weight 106.818, kg, Priority: STAT, Start date: 10/20/12 23:08:00, Stop date: 10/20/12 23:08:00 PO No Longer Active Lagisetty 10/21/2012 [facility] [place] 5/325 oral tablet 1 tab, Route: PO, Drug Form: TAB, Dosing Weight 106.818, kg, ONCE, STAT, Start date: 10/20/12 23:08:00, Stop date: 10/20/12 23:08:00 PO No Longer Active Poppyise10/21/2012 [facility] ipratropium 0.5 mg, 2.5 mL, Route: NEB, Drug form: SOLN, Q15Min, Dosing Weight 106.818, kg, Priority: STAT, Start date: 10/20/12 22:12:00, Duration: 2 doses or times, Stop date: 10/20/12 22:27:00 NEB No Longer Active Vernontim 10/21/2012 [facility] albuterol 0.083% inhalation solution 2.49 mg, 3 mL, Route: NEB, Drug form: SOLN, Q15Min, Dosing Weight 106.818, kg, Priority: STAT, Start date: 10/20/12 22:12:00, Duration: 2 doses or times, Stop date: 10/20/12 22:27:00 NEB No Longer Active Vernontim 10/21/2012 [facility] Allergies, Adverse Reactions, Alerts Substance Category Reaction Severity Reaction type Status Date Reported Comments Source NKFA Assertion Drug allergy Active [facility] Immunizations Immunization Date Given Site Status Last Updated Comments Source pneumococcal 23-valent vaccine 10/24/2012 Left Deltoid completed Anu [facility] pneumococcal 23-valent vaccine 10/24/2012 completed Anu MARION Castrejon,[facility] Results Order Name Results Value [...] should be multiplied by the estimated BMI. [facility] CHEMISTRY Creatinine Lvl 0.8 0.5 - 1.4 10/24/2012 Normal [facility] CHEMISTRY Sodium Lvl 141 135 - 145 10/24/2012 Normal [facility] CHEMISTRY Glucose Lvl 65 70 - 99 10/24/2012 LOW <sup>5</sup>Interpretive Data: Adult reference range values reflect the clinical guidelines
of the [place] [employer]. [facility] CHEMISTRY Potassium Lvl 3.7 3.5 - 5.1 10/24/2012 Normal [facility] CHEMISTRY AGAP 13.7 10.0 - 20.0 10/24/2012 Normal [facility] CHEMISTRY Calcium Lvl 8.6 8.5 - 10.5 10/24/2012 Normal [facility] CHEMISTRY Chloride Lvl 104 95 - 109 10/24/2012 Normal [facility] CHEMISTRY BUN 19 7 - 22 10/24/2012 Normal [facility] CHEMISTRY CO2 27 24 - 32 10/24/2012 Normal [facility] HEMATOLOGY WBC 11.6 3.7 - 10.4 10/24/2012 HI [facility] HEMATOLOGY MCV 84.4 81.0 - 99.0 10/24/2012 Normal [facility] HEMATOLOGY Hct 33.0 36.0 - 48.0 10/24/2012 LOW [facility] HEMATOLOGY Hgb 10.9 12.0 - 16.0 10/24/2012 LOW [facility] HEMATOLOGY RBC 3.90 4.20 - 5.40 10/24/2012 LOW [facility] HEMATOLOGY MPV 8.2 7.4 - 10.4 10/24/2012 Normal [facility] HEMATOLOGY Platelet 384 133 - 450 10/24/2012 Normal [facility] HEMATOLOGY MCHC 32.9 32.0 - 36.0 10/24/2012 Normal [facility] HEMATOLOGY MCH 27.8 27.0 - 31.0 10/24/2012 Normal [facility] HEMATOLOGY RDW 15.2 11.5 - 14.5 10/24/2012 [facility] HEMATOLOGY Polychrom Slight (10/24/2012 05:10:00) None Seen 10/24/2012 Normal [facility] HEMATOLOGY Lymphocytes 20.5 20.0 - 40.0 10/24/2012 Normal [facility] HEMATOLOGY Eosinophils 0.0 0.0 - 4.0 10/24/2012 Normal [facility] HEMATOLOGY Basophils 0.3 0.0 - 1.0 10/24/2012 Normal [facility] HEMATOLOGY Monocytes 8.7 2.0 - 12.0 10/24/2012 Normal [facility] HEMATOLOGY Segs 70.5 45.0 - 75.0 10/24/2012 Normal [facility] HEMATOLOGY Segs-Bands # 8.2 1.5 - 8.1 10/24/2012 HI [facility] HEMATOLOGY Lymphocytes # 2.4 1.0 - 5.5 10/24/2012 Normal [facility] HEMATOLOGY Monocytes # 1.0 0.0 - 0.8 10/24/2012 HI [facility] HEMATOLOGY Eosinophils # 0.0 0.0 - 0.5 10/24/2012 Normal [facility] HEMATOLOGY Basophils # 0.0 0.0 - 0.2 10/24/2012 Normal [facility] CHEMISTRY eGFR 77 10/23/2012 NA [...] should be multiplied by the estimated BMI. [facility] CHEMISTRY Sodium Lvl 140 135 - 145 10/23/2012 Normal [facility] CHEMISTRY Glucose Lvl 110 70 - 99 10/23/2012 [place] <sup>6</sup>Interpretive Data: Adult reference range values reflect the clinical guidelines
of the [place] [employer]. [facility] CHEMISTRY Creatinine Lvl 1.0 0.5 - 1.4 10/23/2012 Normal [facility] CHEMISTRY BUN 24 7 - 22 10/23/2012 [facility] CHEMISTRY Calcium Lvl 9.1 8.5 - 10.5 10/23/2012 Normal [facility] CHEMISTRY Potassium Lvl 3.7 3.5 - 5.1 10/23/2012 Normal [facility] CHEMISTRY CO2 21 24 - 32 10/23/2012 LOW [facility] CHEMISTRY Chloride Lvl 105 95 - 109 10/23/2012 Normal [facility] CHEMISTRY AGAP 17.7 10.0 - 20.0 10/23/2012 Normal [facility] HEMATOLOGY Basophils 0.0 0.0 - 1.0 10/23/2012 [facility] HEMATOLOGY Eosinophils 0.0 0.0 - 4.0 10/23/2012 [facility] HEMATOLOGY Monocytes 5.7 2.0 - 12.0 10/23/2012 [facility] HEMATOLOGY Lymphocytes 8.1 20.0 - 40.0 10/23/2012 [facility] HEMATOLOGY Segs 86.2 45.0 - 75.0 10/23/2012 [facility] HEMATOLOGY Basophils # 0.0 0.0 - 0.2 10/23/2012 Normal [facility] HEMATOLOGY Eosinophils # 0.0 0.0 - 0.5 10/23/2012 [facility] HEMATOLOGY Monocytes # 1.1 0.0 - 0.8 10/23/2012 [facility] HEMATOLOGY Lymphocytes # 1.5 1.0 - 5.5 10/23/2012 [facility] HEMATOLOGY Segs-Bands # 16.3 1.5 - 8.1 10/23/2012 [facility] HEMATOLOGY MPV 7.9 7.4 - 10.4 10/23/2012 [facility] HEMATOLOGY Platelet 394 133 - 450 10/23/2012 [facility] HEMATOLOGY RDW 15.4 11.5 - 14.5 10/23/2012 [facility] HEMATOLOGY MCHC 33.1 32.0 - 36.0 10/23/2012 [facility] HEMATOLOGY MCH 27.8 27.0 - 31.0 10/23/2012 [facility] HEMATOLOGY MCV 84.0 81.0 - 99.0 10/23/2012 Normal [facility] HEMATOLOGY Hct 35.4 36.0 - 48.0 10/23/2012 [facility] HEMATOLOGY Hgb 11.7 12.0 - 16.0 10/23/2012 [facility] HEMATOLOGY RBC 4.21 4.20 - 5.40 10/23/2012 [facility] HEMATOLOGY WBC 19.0 3.7 - 10.4 10/23/2012 [facility] CHEMISTRY Hgb A1C 5.7 10/22/2012 NA [...] 240 Poor Control, take action to lower [facility] CHEMISTRY Magnesium Lvl 2.1 1.8 - 2.4 10/22/2012 Normal [facility] CHEMISTRY eGFR 116 10/22/2012 NA [...] should be multiplied by the estimated BMI. [facility] CHEMISTRY Potassium Lvl 4.5 3.5 - 5.1 10/22/2012 Normal [facility] CHEMISTRY Sodium Lvl 142 135 - 145 10/22/2012 Normal [facility] CHEMISTRY Creatinine Lvl 0.7 0.5 - 1.4 10/22/2012 Normal [facility] CHEMISTRY Chloride Lvl 103 95 - 109 10/22/2012 Normal [facility] CHEMISTRY Glucose Lvl 121 70 - 99 10/22/2012 [place] <sup>7</sup>Interpretive Data: Adult reference range values reflect the clinical guidelines
of the [place] [employer]. [facility] CHEMISTRY Alk Phos 47 39 - 136 10/22/2012 Normal [facility] CHEMISTRY BUN 14 7 - 22 10/22/2012 Normal [facility] CHEMISTRY ALT 56 0 - 65 10/22/2012 Normal [facility] CHEMISTRY CO2 21 24 - 32 10/22/2012 LOW [facility] CHEMISTRY Albumin Lvl 3.3 3.5 - 5.0 10/22/2012 LOW [facility] CHEMISTRY AGAP 22.5 10.0 - 20.0 10/22/2012 [facility] CHEMISTRY Total Protein 7.9 6.4 - 8.4 10/22/2012 Normal [facility] CHEMISTRY Globulin 4.6 2.0 - 4.0 10/22/2012 [facility] CHEMISTRY B/C Ratio 20 6 - 25 10/22/2012 Normal [facility] CHEMISTRY Bili Total 0.4 0.2 - 1.3 10/22/2012 Normal [facility] CHEMISTRY Calcium Lvl 9.1 8.5 - 10.5 10/22/2012 Normal [facility] CHEMISTRY AST 32 0 - 37 10/22/2012 Normal [facility] CHEMISTRY A/G Ratio 0.7 0.7 - 1.6 10/22/2012 Normal [facility] HEMATOLOGY MCH 28.1 27.0 - 31.0 10/22/2012 Normal [facility] HEMATOLOGY MCV 84.2 81.0 - 99.0 10/22/2012 Normal [facility] HEMATOLOGY RBC 4.28 4.20 - 5.40 10/22/2012 Normal [facility] HEMATOLOGY Hgb 12.1 12.0 - 16.0 10/22/2012 [facility] HEMATOLOGY Hct 36.1 36.0 - 48.0 10/22/2012 Normal [facility] HEMATOLOGY MPV 8.5 7.4 - 10.4 10/22/2012 Normal [facility] HEMATOLOGY MCHC 33.5 32.0 - 36.0 10/22/2012 Normal [facility] HEMATOLOGY RDW 15.0 11.5 - 14.5 10/22/2012 [facility] HEMATOLOGY Platelet 375 133 - 450 10/22/2012 Normal [facility] HEMATOLOGY WBC 14.7 3.7 - 10.4 10/22/2012 [facility] HEMATOLOGY Eosinophils 0.0 0.0 - 4.0 10/22/2012 Normal [facility] HEMATOLOGY Segs 88.9 45.0 - 75.0 10/22/2012 [facility] HEMATOLOGY Lymphocytes 9.5 20.0 - 40.0 10/22/2012 LOW [facility] HEMATOLOGY Monocytes 1.5 2.0 - 12.0 10/22/2012 LOW [facility] HEMATOLOGY Lymphocytes # 1.4 1.0 - 5.5 10/22/2012 Normal [facility] HEMATOLOGY Monocytes # 0.2 0.0 - 0.8 10/22/2012 Normal [facility] HEMATOLOGY Eosinophils # 0.0 0.0 - 0.5 10/22/2012 Normal [facility] HEMATOLOGY Basophils 0.1 0.0 - 1.0 10/22/2012 Normal [facility] HEMATOLOGY Segs-Bands # 13.1 1.5 - 8.1 10/22/2012 HI [facility] HEMATOLOGY Basophils # 0.0 0.0 - 0.2 10/22/2012 Normal [facility] CHEMISTRY Total Protein 7.9 6.4 - 8.4 10/21/2012 Normal [facility] CHEMISTRY Bili Total 0.5 0.2 - 1.3 10/21/2012 Normal [facility] CHEMISTRY Globulin 4.6 2.0 - 4.0 10/21/2012 [facility] CHEMISTRY B/C Ratio 7 6 - 25 10/21/2012 Normal [facility] CHEMISTRY AST 110 0 - 37 10/21/2012 [facility] CHEMISTRY A/G Ratio 0.7 0.7 - 1.6 10/21/2012 Normal [facility] CHEMISTRY ALT 86 0 - 65 10/21/2012 [facility] CHEMISTRY Alk Phos 64 39 - 136 10/21/2012 Normal [facility] CHEMISTRY Albumin Lvl 3.3 3.5 - 5.0 10/21/2012 LOW [facility] HEMATOLOGY Sed Rate 45 0 - 20 10/21/2012 [facility] HEMATOLOGY Plt Morph Normal (10/21/2012 09:00:00) 10/21/2012 Normal [facility] HEMATOLOGY RBC Morph Normal (10/21/2012 09:00:00) 10/21/2012 Normal [facility] IMMUNOLOGY HIV 1/2 Ab Negative *NA* (10/21/2012 09:00:00) Negative 10/21/2012 [facility] Microbiology Culture: Respiratory w/Gram Stain 10/21/2012 [facility] BACTERIAL - SEROLOGY U S pneumo Ag Negative (10/21/2012 05:30:21) Negative 10/21/2012 Normal [facility] MICRO MISC - SEROLOGY U Legion Ag Negative 1 (10/21/2012 05:30:21) Negative 10/21/2012 Normal <sup>1</sup>Interpretive Data: This kit tests for Legionella pneumophila Serogroup 1 Antigen. [facility] Microbiology Culture: Blood 10/21/2012 [facility] CHEMISTRY Lactic Acid Lvl 2.1 0.5 - 2.2 10/21/2012 Normal [facility] Microbiology Culture: Blood 10/21/2012 [facility] CHEMISTRY Temp Art 37.0 10/21/2012 [facility] CHEMISTRY Mode Art Rm Air (10/20/2012 23:24:00) 10/21/2012 Normal [facility] CHEMISTRY O2 Sat Art 94.4 95.0 - 100.0 10/21/2012 LOW [facility] CHEMISTRY HCO3 Art 26 22 - 26 10/21/2012 Normal [facility] CHEMISTRY BE Art 1 -2-2 - 2 10/21/2012 Normal [facility] CHEMISTRY pCO2 Art 40 35 - 45 10/21/2012 Normal [facility] CHEMISTRY pO2 Art 71 80 - 100 10/21/2012 LOW [facility] CHEMISTRY pH Art 7.42 7.35 - 7.45 10/21/2012 Normal [facility] CHEMISTRY CK MB Index <0.4 0.0 - 2.5 10/21/2012 Normal [facility] CHEMISTRY Troponin-I <0.02 0.00 - 0.40 10/21/2012 Normal [facility] CHEMISTRY B/C Ratio 8 6 - 25 10/21/2012 Normal [facility] CHEMISTRY Globulin 4.9 2.0 - 4.0 10/21/2012 [place] [facility] CHEMISTRY A/G Ratio 0.7 0.7 - 1.6 10/21/2012 Normal [facility] CHEMISTRY AST 15 0 - 37 10/21/2012 Normal [facility] CHEMISTRY Alk Phos 55 39 - 136 10/21/2012 Normal [facility] CHEMISTRY ALT 39 0 - 65 10/21/2012 Normal [facility] CHEMISTRY Albumin Lvl 3.5 3.5 - 5.0 10/21/2012 Normal [facility] CHEMISTRY Bili Total 0.4 0.2 - 1.3 10/21/2012 Normal [facility] CHEMISTRY Total Protein 8.4 6.4 - 8.4 10/21/2012 Normal [facility] CHEMISTRY CK MB <0.5 0.5 - 3.6 10/21/2012 Normal [facility] CHEMISTRY Total CK 117 12 - 191 10/21/2012 Normal [facility] Pathology Reports No Data Provided [...] the possibility of a mass. SL: 10/24/2012 [facility] Chest 2 views Two views chest. HISTORY: Pneumonia. Comparison 10/20/2012. Right lower lobe opacity persists. Consider pneumonia. No pleural effusion. Heart size normal. SL: 10/21/2012 [facility] Chest 2 views EXAMINATION: Chest [...] or focal osseous lesion is appreciated. SL:10/20/2012 [facility] Consultation Notes No Data Provided for This Section Discharge Summaries No Data Provided for This Section History and Physicals No Data Provided for This Section Vital Signs Vital Sign Value Date Comments Source Height 152.4 cm 10/08/[address] [facility] Weight 112.727 10/08/[address] [facility] BMI Calculated 48.54 10/08/[address] [facility] Respitory Rate 20 10/24/2012 [facility] Diastolic (mm Hg) 89 10/24/2012 [facility] Systolic (mm Hg) 139 10/24/2012 [facility] Heart Rate 90 10/24/2012 [facility] Temperature Oral (F) 98.5 F 10/24/2012 [facility] Diastolic (mm Hg) 92 10/24/2012 [facility] Systolic (mm Hg) 153 10/24/2012 [facility] Respitory Rate 20 10/24/2012 [facility] Temperature Oral (F) 98.6 F 10/24/2012 [facility] Heart Rate 89 10/24/2012 [facility] Heart Rate 87 10/24/2012 [facility] Respitory Rate 20 10/24/2012 [facility] Temperature Oral (F) 98.4 F 10/24/2012 [facility] Diastolic (mm Hg) 88 10/24/2012 [facility] Systolic (mm Hg) 138 10/24/2012 [facility] Weight 104.119 10/21/2012 [facility] Height 152.4 cm 10/21/2012 [facility] Weight 106.818 10/21/2012 [facility] Height 152.4 cm 10/21/2012 [facility] Encounters Location Location Details Encounter Type Encounter Number Reason For Visit Attending Provider ADM Date DC Date Status Source [facility] Outpatient [id number] LEFT BREASTS CANCER 174.9, 611.0 SHAHE VARTIVARIAN 10/26/2011 10/26/2011 Active [facility] [place] [id number] 466.0 - ACUTE BRONCHITI RADHA BELINDA 10/16/[address] [facility] Inpatient [id number] TALI EDWARDS 10/20/2012 10/24/2012 Discharged [facility] OP Therapy Patients [id number] Mihir Pantoja 10/16/2014 11/15/2014 [facility] OP Therapy Patients [id number] Mihir Pantoja 11/15/2014 12/15/2014 [facility] Outpatient [id number] Velasquez Lawanda 10/07/2016 10/08/2016 [facility] Out[facility] [id number] Velasquez Lawanda 10/08/2016 10/08/2016 [facility] Outpatient [id number] Velasquez Lawanda 11/04/2016 11/05/2016 [facility] Outpatient [id number] Velasquez Lawanda 12/09/2016 12/10/2016 [facility] Outpatient [id number] Velasquez Lawanda 01/10/2017 01/11/2017 [facility] Procedures Procedure Code Date Perfomer Comments Source section [id number] [facility] TM,[facility] Cholecystectomy [id number] [facility], [facility] Hernia repair [id number] [facility], [facility] Mastectomy [id number] [facility], [facility] section [id number] [facility] Cholecystectomy [id number] [facility] Hernia repair [id number] [facility] Mastectomy [id number] [facility] Assessment and Plan No Data Provided for This Section Plan of Care No Data Provided for This Section Social History Social History Date Source Social History TypeResponse 01/11/2017 [facility] Social History TypeResponse 10/08/[address] [facility] Social History TypeResponse 12/15/2014 [facility] Family History No Data Provided for This Section Advance Directives No Data Provided for This Section Functional Status No Data Provided for This Section
--- OUTSIDE RECORDS SUMMARY | 2019-02-20 17:21 | XMS REPORT ---
Author [facility] Address Unknown Phone Unavailable Care Team Providers Care Blanket Maker Name Role Phone Simeon MCCOY Unavailable Unavailable Problems This patient has no known problems. Allergies, Adverse Reactions, Alerts This patient has no known allergies or adverse reactions. Medications This patient has no known medications. Results Test Description Test Time Test Comments Text Results Atomic Results Result Comments CT ABDOMEN/PELVIS W 2019-02-12 11:54:00 [facility] [address] [address] Patient Name: MAJO NDIAYE MR #: [id number] : 1960 Age/Sex: 58/F Req #: [id number] [facility] Physician: Ordered by: ELAYNE MCCOY MD Report #: [id number] Location: ER Room/Bed: Procedure: [id number] CT/CT ABDOMEN/PELVIS W Exam Date: 02/12/19 Exam Time: 1120 REPORT STATUS: Signed EXAM: CT of the abdomen and pelvis WITH contrast HISTORY: Vomiting, abdominal pain, history of gastric sleeve January 29, 2018, prior hysterectomy. COMPARISON: None. TECHNIQUE: The abdomen and pelvis were scanned utilizing a multidetector helical scanner. Coronal and sagittal reformats are provided. PROTOCOL: Routine IV CONTRAST: 100 cc of Isovue-370. ORAL CONTRAST: None, which limits sensitivity and specificity of the exam. RADIATION DOSE: Total DLP: 767.94 mGy*cm Estimated effective dose: (DLP x 0.015 x size factor) Dose modulation, iterative reconstruction, and/or weight based adjustment of the mA/kV was utilized to reduce the radiation dose to as low as reasonably achievable. COMPLICATIONS: None FINDINGS: LOWER THORAX: Unremarkable. HEPATOBILIARY: No mass. No biliary dilation. Cholecystectomy clips. Prominence of the common bile duct and central intrahepatic biliary ducts. SPLEEN: No splenomegaly. PANCREAS: No focal masses or ductal dilatation. ADRENALS: No discrete adrenal nodule. KIDNEYS/URETERS: No hydronephrosis, stones, or definite solid mass lesions. PELVIC ORGANS/BLADDER: The urinary bladder is decompressed. GI TRACT: No dilation or wall thickening identified. The appendix is normal. Findings compatible with reported history of gastric slee ve. PERITONEUM / RETROPERITONEUM: No free air or fluid. LYMPH NODES: No pathologically enlarged lymph node. VESSELS: A 7 mm curvilinear calcification of a right renal artery adjacent to the superior pole. BONES and JOINTS: No aggressive osseous lesion or acute fracture. 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 SOFT TISSUES: A small fat- containing left anterolateral abdominal wall hernia (series 2 image 39), no associated inflammatory changes. A small fat-containing left supraumbilical hernia (series 2 image 48), no associated inflammatory changes. IMPRESSION: 1. Postsurgical changes, no evidence of bowel obstruction or ileus. 2. Prominence of the common bile duct and central intrahepatic biliary ducts likely secondary to reservoir effect from prior cholecystectomy, a common postsurgical findings. However, correlate with laboratory values to exclude evidence of biliary obstruction. 3. Small fat-containing abdominal wall hernias without evidence of strangulation. 4. 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 Recommend surveillance follow-up CTA of the abdomen in one year to assess for stability. Signed by: Dr. Cindi Ackerman D.O., M.M.M. on 02/12/2019 12:04 PM Dictated By: CINDI ACKERMAN DO 1208 Transcribed By: MENG on 02/12/19 1208 COPY TO: ELAYNE MCCOY MD
[2019-02-20] MEDS ORDERED: SODIUM CHLORIDE 0.9% 1000ML 1,000 ML IV STA (18:11)
[2019-02-20] MEDS ORDERED: ONDANSETRON HCL INJ 2MG/ML 2ML 2 MG/ML VIAL IV NR (18:15)
[2019-02-20 18:21] LABS: BILIRUBIN,URINE LARGE (NEGATIVE); CLARITY,URINE SL CLOUDY (CLEAR); COLOR,URINE YELLOW (YELLOW); LEUKOCYTE ESTERASE ,URINE NEGATIVE (NEGATIVE); NITRITE,URINE NEGATIVE (NEGATIVE); PROTEIN,URINE DIPSTICK 1+ (NEGATIVE); URINE UROBILINOGEN 1 mg/dL (0.2 - 1)
[2019-02-20 18:23] LABS: KETONES,URINE 2+ (NEGATIVE)
[2019-02-20 18:34] LABS: AMORPHOUS SEDIMENT,URINE MANY (FEW); BACTERIA,URINE MODERATE /HPF; CALCIUM OXALATE CRYSTALS,UR FEW (FEW); EPITHELIAL CELLS,URINE MODERATE /LPF
--- NOTE | 2019-02-20 19:16 | Diagnostic Imaging Report ---
EXAM: CT Abdomen and Pelvis WITHOUT contrast INDICATION: ^STONE PROTOCOL ^[id number] ^1815 ^Y COMPARISON: CT abdomen and pelvis 02/12/2019 TECHNIQUE: Abdomen and pelvis were scanned utilizing a multidetector helical scanner from the lung base to the pubic symphysis without administration of IV contrast. Absence of intravenous contrast decreases sensitivity for detection of focal lesions and vascular pathology. Coronal and sagittal reformations were obtained. Routine protocol was performed. IV CONTRAST: None. ORAL CONTRAST: Water RADIATION DOSE: Total DLP: 722 mGy*cm Estimated effective dose: (DLP x 0.015 x size factor) mSv COMPLICATIONS: None FINDINGS: LINES and TUBES: None. LOWER THORAX: Unremarkable HEPATOBILIARY: No focal hepatic lesions. No biliary ductal dilation. GALLBLADDER: Cholecystectomy. SPLEEN: No splenomegaly. PANCREAS: No focal masses or ductal dilatation. ADRENALS: No adrenal nodules KIDNEYS/URETERS: No hydronephrosis. No cystic or solid mass lesions. No stones. GI TRACT: Stable gastric sleeve postsurgical changes. No abnormal distention, wall thickening, or evidence of bowel obstruction. Appendix is normal. PELVIC ORGANS/BLADDER: Unremarkable. LYMPH NODES: No lymphadenopathy. VESSELS: Stable partially calcified 7 mm aneurysm of the proximal right renal artery. The abdominal aorta is tortuous but normal in caliber and without calcifications. PERITONEUM / RETROPERITONEUM: No free air or fluid. BONES: No aggressive osseous lesion or acute fracture. 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 SOFT TISSUES: Stable small fat-containing left anterolateral abdominal wall hernia. IMPRESSION: 1. No nephroureterolithiasis or hydronephrosis. 2. 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 Signed by: Dr. Gisele Grover M.D. on 02/20/2019 7:13 PM
--- NOTE | 2019-02-20 19:17 | Diagnostic Imaging Report ---
EXAMINATION: CHEST SINGLE (PORTABLE) INDICATION: ^ERMD ORDER ^[id number] ^1815 ^Y COMPARISON: None FINDINGS: AP view TUBES and LINES: None. LUNGS: Lungs are well inflated. Lungs are clear. There is no evidence of pneumonia or pulmonary edema. PLEURA: No pleural effusion or pneumothorax. HEART AND MEDIASTINUM: The cardiomediastinal silhouette is unremarkable.. BONES AND SOFT TISSUES: No acute osseous lesion. Soft tissues are unremarkable. UPPER ABDOMEN: No free air under the diaphragm. IMPRESSION: No acute thoracic abnormality. Signed by: Dr. Gisele Grover M.D. on 02/20/2019 7:13 PM
[2019-02-20] MEDS ORDERED: ONDANSETRON HCL 4 MG ORAL DISINTEGRATING TAB PO NR (20:15)
[2019-02-20 20:42] LABS: BASOPHILS % 0.4 % (0.0-1.0); EOSINOPHILS % 0.2 % (0.0-6.0); HEMATOCRIT 41.3 % (34.2-44.1); HEMOGLOBIN 13.4 g/dL (12.0-16.0); LYMPHOCYTES % 24.8 % (18.0-39.1); MEAN CORPUSCULAR HEMOGLOBIN 28.4 pg (28-32); MEAN CORPUSCULAR HGB CONC 32.4 g/dL (31-35); MEAN CORPUSCULAR VOLUME 87.5 fL (81-99); MONOCYTES # (AUTO) 0.7 (0.2-0.8); MONOCYTES % 7.9 % (4.4-11.3); NEUTROPHILS # (AUTO) 5.5 (2.1-6.9); NEUTROPHILS % 66.5 % (38.7-80.0); PLATELET COUNT 359 x10e3/uL (140-360); RED BLOOD COUNT 4.72 x10e6/uL (3.6-5.1); RED CELL DISTRIBUTION WIDTH 14.9 % (11.7-14.4)
[2019-02-20 21:23] LABS: ALANINE AMINOTRANSFERASE 25 IU/L (0-55); ALBUMIN 3.7 g/dL (3.5-5.0); ALBUMIN/GLOBULIN RATIO 0.9 (0.8-2.0); ALKALINE PHOSPHATASE 33 IU/L (40-150); ANION GAP 19.3 mmol/L (8-16); BLOOD UREA NITROGEN 17 mg/dL (7-26); BUN/CREATININE RATIO 22 (6-25); CALCIUM 9.9 mg/dL (8.4-10.2); CARBON DIOXIDE 22 mmol/L (22-29); CHLORIDE 104 mmol/L (98-107); CREATINE KINASE 68 IU/L (29-168); CREATININE, SERUM 0.78 mg/dL (0.57-1.11); EST GLOMERULAR FILTRATION RATE > 60 ML/MIN (60-); GLUCOSE 74 mg/dL (74-118); LIPASE 54 U/L (8-78); MAGNESIUM 1.9 MG/DL (1.3-2.1); POTASSIUM 3.3 mmol/L (3.5-5.1); SODIUM 142 mmol/L (136-145)
[2019-03-02] MEDS ORDERED: REGLAN5 MG PO (07:16)
[2019-03-02] MEDS ORDERED: FLAGYL500 MG PO (07:16)
[2019-03-02] MEDS ORDERED: ZOFRAN4 MG PO (07:16)
== END 2019-02-20 22:18 | disposition home or self-care (01) ==
LOC: ER 17:17
DX: R11.2 Nausea with vomiting, unspecified (principal); R10.9 Unspecified abdominal pain; M54.5 Low back pain; K21.9 Gastro-esophageal reflux disease without esophagitis; Z98.84 Bariatric surgery status; Z87.19 Personal history of other diseases of the digestive system
CPT/HCPCS: 36415; 71045; 74176; 80053; 81001; 82550; 82553; 83690; 83735; 84484; 85025; 87086; 99284; J7030; Q0162

== ENCOUNTER 2019-02-24 21:38 | Inpatient (IN) | payer OTHER ==
[~2019-02-24] VITALS: Ht 152.4 cm; Wt 113.4 kg
--- OUTSIDE RECORDS SUMMARY | 2019-02-24 21:41 | XMS REPORT | Clinical Summary ---
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
--- OUTSIDE RECORDS SUMMARY | 2019-02-24 21:42 | XMS REPORT | Continuity of Care Document ---
Author Author [employer] Organization [employer] Address Unknown Phone Unavailable Care Team Providers Care Assistant Analyst Name Role Phone [employer] Information [employer] Unavailable Unavailable Problems Problem Status Onset Date Classification Date Reported Comments Source MORBID OBERSITY E66.01 Active 01/10/2017 [facility] [place] E66.01 MORBID OBESITY Active 11/04/2016 [facility] [id number] Active 2016 [facility] ACUTE RLL PNEUMONIA Active 10/20/2012 [facility] BRONCHITIS Active 10/20/2012 [facility] 466.0 - ACUTE BRONCHITI Active 10/13/2012 [facility] LEFT BREASTS CANCER 174.9, 611.0 Active 10/25/2011 [facility] Bilateral mastectomy Active 05/21/2010 Problem 10/26/2012 [facility] Breast reconstruction with latissimus dorsi flap with implant Active 05/21/2010 [facility] [facility] (procedure) Active 05/21/2010 Problem 01/13/2017 [facility] Breast reconstruction with latissimus dorsi flap with implant (procedure) Active 05/21/2010 Problem 01/13/2017 [facility] Hypertension Resolved Problem 10/26/2012 [facility] Hypothyroid Active Problem 10/26/2012 [facility] Malignant tumor of breast (disorder) Resolved Problem 01/13/2017 [facility] Hypertensive disorder, systemic arterial (disorder) Resolved Problem 01/13/2017 [facility] Hypothyroidism (disorder) Active Problem 01/13/2017 [facility] Breast cancer Resolved Problem 10/26/2012 [facility] PNEUMONIA, ORGANISM NOS Active [facility] RT KNEE PAIN Active [facility] JOINT DIS NOS-L/LEG Active [facility] MORBID (SEVERE) OBESITY DUE TO EXCESS CA Active [facility] Medications Medication Details Route Status Patient Instructions Ordering Provider Order Date Source diltiazem 360 mg/24 hours oral capsule, extended release 360 mg=1 cap, PO, Daily, 0 Refill(s) Active 10/08/2016 [facility] atorvastatin 80 mg oral tablet 80 mg=1 tab, PO, Daily, 0 Refill(s) Active 10/08/2016 [facility] Sertraline 100 MG Oral Tablet [Zoloft] 100 mg=1 tab, PO, Daily, 0 Refill(s) Active 10/08/2016 [facility] Hydrochlorothiazide 12.5 MG / Lisinopril 20 MG Oral Tablet 1 tab, PO, Daily, 0 Refill(s) Active 10/08/2016 [facility] pneumococcal 23-valent vaccine 0.5 ml, Route: IM, ONCALL, Start date: 10/24/12 15:27:17, Stop date: 11/23/12 15:22:17 Inactive SYSTEM 10/24/2012 [facility] Robitussin-DM 10 mL, Route: PO, Drug Form: LIQ, Q6H-02, Start date: 10/23/12 20:00:00, Duration: 30 day, Stop date: 11/22/12 14:00:00 PO No Longer Active [facility] 10/24/2012 [facility] Tessalon Perles 200 mg, 2 cap, Route: PO, Drug form: CAP, TID, Start date: 10/23/12 19:22:00, Duration: 30 day, Stop date: 11/22/12 17:00:00 PO No Longer Active [facility] 10/24/2012 [facility] predniSONE 40 mg, 2 tab, Route: PO, Drug form: TAB, Daily, Start date: 10/23/12 9:00:00, Duration: 30 day, Stop date: 11/21/12 9:00:00 PO No Longer Active [facility] 10/23/2012 [facility] Robitussin-DM 10 mL, Route: PO, Drug Form: LIQ, Q6H, PRN Cough, Start date: 10/22/12 20:00:00, Duration: 30 day, Stop date: 11/21/12 19:59:00 PO No Longer Active [facility] 10/23/2012 [facility] Robitussin-DM 10 mL, Route: PO, Drug Form: LIQ, ONCE, Start date: 10/22/12 14:00:00, Stop date: 10/22/12 14:00:00 PO No Longer Active [facility] 10/22/2012 [facility] lactulose 15 gm, 22.5 mL, Route: PO, Drug form: SYRP, ONCE, Start date: 10/22/12 13:34:00, Stop date: 10/22/12 13:34:00 PO No Longer Active [facility] 10/22/2012 [facility] Cymbalta 60 mg, 1 cap, Route: PO, Drug form: DRC, Daily, Start date: 10/22/12 9:00:00, Duration: 30 day, Stop date: 11/20/12 9:00:00 PO No Longer Active [facility] 10/22/2012 [facility] levofloxacin 750 mg, 1 tab, Route: PO, Drug form: TAB, Q24H, Start date: 10/22/12 2:00:00, Duration: 30 day, Stop date: 11/20/12 2:00:00 PO No Longer Active [facility] 10/22/2012 [facility] methylPREDNISolone 125 mg, 2 mL, Route: IV, Drug form: INJ, Q24H, Start date: 10/22/12 0:00:00, Duration: 30 day, Stop date: 11/20/12 0:00:00 IV No Longer Active [facility] 10/22/2012 [facility] budesonide-formoterol 160 mcg-4.5 mcg/inh inhalation aerosol with adapter 1 inhalation, Route: INHALATION, Drug Form: AERO/A, RBID, Start date: 10/21/12 20:00:00, Duration: 30 day, Stop date: 11/20/12 8:00:00 INHALATION No Longer Active [facility] 10/22/2012 [facility] Norvasc 10 mg, 1 tab, Route: PO, Drug form: TAB, Q24H, Start date: 10/21/12 13:00:00, Duration: 30 day, Stop date: 11/19/12 13:00:00 PO No Longer Active [facility] 10/21/2012 [facility] Sodium Chloride 0.9% IV 1,000 mL 1,000 mL, Rate: 50 ml/hr, Infuse over: 20 hr, Route: IV, Dosing Weight 104.119 kg, Total Volume: 1,000, Start date: 10/21/12 12:44:00, Duration: 1 doses or times, Stop date: 10/22/12 8:43:00 IV No Longer Active [facility] 10/21/2012 [facility] Lovenox 40 mg, 0.4 mL, Route: SUB-Q, Drug form: INJ, Daily, Start date: 10/21/12 9:00:00, Duration: 30 day, Stop date: 11/19/12 9:00:00 SUB-Q No Longer Active [facility] 10/21/2012 [facility] Pepcid 20 mg, 1 tab, Route: PO, Drug form: TAB, Q12H, Start date: 10/21/12 9:00:00, Duration: 30 day, Stop date: 11/19/12 21:00:00 PO No Longer Active [facility] 10/21/2012 [facility] Levaquin 750 mg, 150 mL, Route: IV, Drug form: SOLN, ONCE, Start date: 10/21/12 2:15:00, Stop date: 10/21/12 2:15:00 IV No Longer Active [facility] 10/21/2012 [facility] DuoNeb inhalation solution 3 mL, Route: NEB, Drug Form: SOLN, RQ6H, PRN Wheezing, Start date: 10/21/12 1:54:00, Duration: 30 day, Stop date: 11/20/12 1:53:00 NEB No Longer Active [facility] 10/21/2012 [facility] Robitussin 200 mg, 10 mL, Route: PO, Drug form: SYRP, Q4H, PRN Cough, Start date: 10/21/12 1:51:00, Duration: 30 day, Stop date: 11/20/12 1:50:00 PO No Longer Active [facility] 10/21/2012 [facility] Sodium Chloride 0.9% IV 250 mL, Route: IVPB, Start date: 10/21/12 1:51:00, Duration: 30 day, Stop date: 11/20/12 1:50:00, PRN Line Flush IVPB No Longer Active [facility] 10/21/2012 [facility] BD Normal Saline Flush 10 mL, Route: IVP, Drug Form: INJ, PRN, PRN Line Flush, Start date: 10/21/12 1:51:00, Duration: 30 day, Stop date: 11/20/12 1:50:00 IVP No Longer Active [facility] 10/21/2012 [facility] SoluMedrol 125 mg, Route: IV, ONCE, Dosing Weight 106.818, kg, Start date: 10/21/12 0:56:00, Stop date: 10/21/12 0:56:00 IV No Longer Active [facility] 10/21/2012 [facility] vancomycin 1 gm, 200 mL, Route: IVPB, Drug form: INJ, ONCE, Dosing Weight 106.818, kg, Priority: STAT, Start date: 10/20/12 23:24:00, Stop date: 10/20/12 23:24:00 IVPB No Longer Active [facility] 10/21/2012 [facility] cefepime + Sodium Chloride 0.9% IV 100 mL 2 gm, Route: IVPB, Drug form: INJ, ONCE, Dosing Weight 106.818, kg, Priority: STAT, Start date: 10/20/12 23:24:00, Stop date: 10/20/12 23:24:00 IVPB No Longer Active [facility]10/21/2012 [facility] [place] 5/325 oral tablet 1 tab, Route: PO, Drug Form: TAB, Dosing Weight 106.818, kg, ONCE, Start date: 10/20/12 23:11:00, Stop date: 10/20/12 23:11:00 PO No Longer Active [facility] 10/21/2012 [facility] ibuprofen 800 mg, 1 tab, Route: PO, Drug form: TAB, ONCE, Dosing Weight 106.818, kg, Priority: STAT, Start date: 10/20/12 23:11:00, Stop date: 10/20/12 23:11:00 PO No Longer Active [facility] 10/21/2012 [facility] ibuprofen 600 mg, 1 tab, Route: PO, Drug form: TAB, ONCE, Dosing Weight 106.818, kg, Priority: STAT, Start date: 10/20/12 23:08:00, Stop date: 10/20/12 23:08:00 PO No Longer Active [facility] 10/21/2012 [facility] [place] 5/325 oral tablet 1 tab, Route: PO, Drug Form: TAB, Dosing Weight 106.818, kg, ONCE, STAT, Start date: 10/20/12 23:08:00, Stop date: 10/20/12 23:08:00 PO No Longer Active [facility]10/21/2012 [facility] ipratropium 0.5 mg, 2.5 mL, Route: NEB, Drug form: SOLN, Q15Min, Dosing Weight 106.818, kg, Priority: STAT, Start date: 10/20/12 22:12:00, Duration: 2 doses or times, Stop date: 10/20/12 22:27:00 NEB No Longer Active [facility] 10/21/2012 [facility] albuterol 0.083% inhalation solution 2.49 mg, 3 mL, Route: NEB, Drug form: SOLN, Q15Min, Dosing Weight 106.818, kg, Priority: STAT, Start date: 10/20/12 22:12:00, Duration: 2 doses or times, Stop date: 10/20/12 22:27:00 NEB No Longer Active [facility] 10/21/2012 [facility] Allergies, Adverse Reactions, Alerts Substance Category Reaction Severity Reaction type Status Date Reported Comments Source NKFA Assertion Drug allergy Active [facility] Immunizations Immunization Date Given Site Status Last Updated Comments Source pneumococcal 23-valent vaccine 10/24/2012 Left Deltoid completed Anu [facility] pneumococcal 23-valent vaccine 10/24/2012 completed Anu [facility] Results Order Name Results Value Reference Range [...] should be multiplied by the estimated BMI. [facility] CHEMISTRY Creatinine Lvl 0.8 0.5 - 1.4 10/24/2012 Normal [facility] CHEMISTRY Sodium Lvl 141 135 - 145 10/24/2012 Normal [facility] CHEMISTRY Glucose Lvl 65 70 - 99 10/24/2012 LOW <sup>5</sup>Interpretive Data: Adult reference range values reflect the clinical guidelines
of the [place] [employer]. [facility] CHEMISTRY Potassium Lvl 3.7 3.5 - 5.1 10/24/2012 Normal [facility] CHEMISTRY AGAP 13.7 10.0 - 20.0 10/24/2012 Normal [facility] CHEMISTRY Calcium Lvl 8.6 8.5 - 10.5 10/24/2012 Normal [facility] CHEMISTRY Chloride Lvl 104 95 - 109 10/24/2012 Normal [facility] CHEMISTRY BUN 19 7 - 22 10/24/2012 Normal [facility] CHEMISTRY CO2 27 24 - 32 10/24/2012 Normal [facility] HEMATOLOGY WBC 11.6 3.7 - 10.4 10/24/2012 HI [facility] HEMATOLOGY MCV 84.4 81.0 - 99.0 10/24/2012 Normal [facility] HEMATOLOGY Hct 33.0 36.0 - 48.0 10/24/2012 LOW [facility] HEMATOLOGY Hgb 10.9 12.0 - 16.0 10/24/2012 LOW [facility] HEMATOLOGY RBC 3.90 4.20 - 5.40 10/24/2012 LOW [facility] HEMATOLOGY MPV 8.2 7.4 - 10.4 10/24/2012 Normal [facility] HEMATOLOGY Platelet 384 133 - 450 10/24/2012 Normal [facility] HEMATOLOGY MCHC 32.9 32.0 - 36.0 10/24/2012 Normal [facility] HEMATOLOGY MCH 27.8 27.0 - 31.0 10/24/2012 Normal [facility] HEMATOLOGY RDW 15.2 11.5 - 14.5 10/24/2012 [facility] HEMATOLOGY Polychrom Slight (10/24/2012 05:10:00) None Seen 10/24/2012 Normal [facility] HEMATOLOGY Lymphocytes 20.5 20.0 - 40.0 10/24/2012 Normal [facility] HEMATOLOGY Eosinophils 0.0 0.0 - 4.0 10/24/2012 Normal [facility] HEMATOLOGY Basophils 0.3 0.0 - 1.0 10/24/2012 Normal [facility] HEMATOLOGY Monocytes 8.7 2.0 - 12.0 10/24/2012 Normal [facility] HEMATOLOGY Segs 70.5 45.0 - 75.0 10/24/2012 Normal [facility] HEMATOLOGY Segs-Bands # 8.2 1.5 - 8.1 10/24/2012 HI [facility] HEMATOLOGY Lymphocytes # 2.4 1.0 - 5.5 10/24/2012 Normal [facility] HEMATOLOGY Monocytes # 1.0 0.0 - 0.8 10/24/2012 HI [facility] HEMATOLOGY Eosinophils # 0.0 0.0 - 0.5 10/24/2012 Normal [facility] HEMATOLOGY Basophils # 0.0 0.0 - 0.2 10/24/2012 Normal [facility] CHEMISTRY eGFR 77 10/23/2012 NA <sup>3</sup>Result Comment: [...] should be multiplied by the estimated BMI. [facility] CHEMISTRY Sodium Lvl 140 135 - 145 10/23/2012 Normal [facility] CHEMISTRY Glucose Lvl 110 70 - 99 10/23/2012 [place] <sup>6</sup>Interpretive Data: Adult reference range values reflect the clinical guidelines
of the [place] [employer]. [facility] CHEMISTRY Creatinine Lvl 1.0 0.5 - 1.4 10/23/2012 Normal [facility] CHEMISTRY BUN 24 7 - 22 10/23/2012 HI [facility] CHEMISTRY Calcium Lvl 9.1 8.5 - 10.5 10/23/2012 Normal [facility] CHEMISTRY Potassium Lvl 3.7 3.5 - 5.1 10/23/2012 Normal [facility] CHEMISTRY CO2 21 24 - 32 10/23/2012 LOW [facility] CHEMISTRY Chloride Lvl 105 95 - 109 10/23/2012 Normal [facility] CHEMISTRY AGAP 17.7 10.0 - 20.0 10/23/2012 Normal [facility] HEMATOLOGY Basophils 0.0 0.0 - 1.0 10/23/2012 [facility] HEMATOLOGY Eosinophils 0.0 0.0 - 4.0 10/23/2012 [facility] HEMATOLOGY Monocytes 5.7 2.0 - 12.0 10/23/2012 [facility] HEMATOLOGY Lymphocytes 8.1 20.0 - 40.0 10/23/2012 [facility] HEMATOLOGY Segs 86.2 45.0 - 75.0 10/23/2012 [facility] HEMATOLOGY Basophils # 0.0 0.0 - 0.2 10/23/2012 Normal [facility] HEMATOLOGY Eosinophils # 0.0 0.0 - 0.5 10/23/2012 [facility] HEMATOLOGY Monocytes # 1.1 0.0 - 0.8 10/23/2012 [facility] HEMATOLOGY Lymphocytes # 1.5 1.0 - 5.5 10/23/2012 [facility] HEMATOLOGY Segs-Bands # 16.3 1.5 - 8.1 10/23/2012 [facility] HEMATOLOGY MPV 7.9 7.4 - 10.4 10/23/2012 [facility] HEMATOLOGY Platelet 394 133 - 450 10/23/2012 [facility] HEMATOLOGY RDW 15.4 11.5 - 14.5 10/23/2012 [facility] HEMATOLOGY MCHC 33.1 32.0 - 36.0 10/23/2012 [facility] HEMATOLOGY MCH 27.8 27.0 - 31.0 10/23/2012 [facility] HEMATOLOGY MCV 84.0 81.0 - 99.0 10/23/2012 Normal [facility] HEMATOLOGY Hct 35.4 36.0 - 48.0 10/23/2012 [facility] HEMATOLOGY Hgb 11.7 12.0 - 16.0 10/23/2012 [facility] HEMATOLOGY RBC 4.21 4.20 - 5.40 10/23/2012 [facility] HEMATOLOGY WBC 19.0 3.7 - 10.4 10/23/2012 [facility] CHEMISTRY Hgb A1C 5.7 10/22/2012 NA <sup>8</sup>Interpretive [...] 240 Poor Control, take action to lower [facility] CHEMISTRY Magnesium Lvl 2.1 1.8 - 2.4 10/22/2012 Normal [facility] CHEMISTRY eGFR 116 10/22/2012 NA <sup>4</sup>Result Comment: [...] should be multiplied by the estimated BMI. [facility] CHEMISTRY Potassium Lvl 4.5 3.5 - 5.1 10/22/2012 Normal [facility] CHEMISTRY Sodium Lvl 142 135 - 145 10/22/2012 Normal [facility] CHEMISTRY Creatinine Lvl 0.7 0.5 - 1.4 10/22/2012 Normal [facility] CHEMISTRY Chloride Lvl 103 95 - 109 10/22/2012 Normal [facility] CHEMISTRY Glucose Lvl 121 70 - 99 10/22/2012 [place] <sup>7</sup>Interpretive Data: Adult reference range values reflect the clinical guidelines
of the [place] [employer]. [facility] CHEMISTRY Alk Phos 47 39 - 136 10/22/2012 Normal [facility] CHEMISTRY BUN 14 7 - 22 10/22/2012 Normal [facility] CHEMISTRY ALT 56 0 - 65 10/22/2012 Normal [facility] CHEMISTRY CO2 21 24 - 32 10/22/2012 LOW [facility] CHEMISTRY Albumin Lvl 3.3 3.5 - 5.0 10/22/2012 LOW [facility] CHEMISTRY AGAP 22.5 10.0 - 20.0 10/22/2012 [facility] CHEMISTRY Total Protein 7.9 6.4 - 8.4 10/22/2012 Normal [facility] CHEMISTRY Globulin 4.6 2.0 - 4.0 10/22/2012 [facility] CHEMISTRY B/C Ratio 20 6 - 25 10/22/2012 Normal [facility] CHEMISTRY Bili Total 0.4 0.2 - 1.3 10/22/2012 Normal [facility] CHEMISTRY Calcium Lvl 9.1 8.5 - 10.5 10/22/2012 Normal [facility] CHEMISTRY AST 32 0 - 37 10/22/2012 Normal [facility] CHEMISTRY A/G Ratio 0.7 0.7 - 1.6 10/22/2012 Normal [facility] HEMATOLOGY MCH 28.1 27.0 - 31.0 10/22/2012 Normal [facility] HEMATOLOGY MCV 84.2 81.0 - 99.0 10/22/2012 Normal [facility] HEMATOLOGY RBC 4.28 4.20 - 5.40 10/22/2012 Normal [facility] HEMATOLOGY Hgb 12.1 12.0 - 16.0 10/22/2012 [facility] HEMATOLOGY Hct 36.1 36.0 - 48.0 10/22/2012 Normal [facility] HEMATOLOGY MPV 8.5 7.4 - 10.4 10/22/2012 Normal [facility] HEMATOLOGY MCHC 33.5 32.0 - 36.0 10/22/2012 Normal [facility] HEMATOLOGY RDW 15.0 11.5 - 14.5 10/22/2012 [facility] HEMATOLOGY Platelet 375 133 - 450 10/22/2012 Normal [facility] HEMATOLOGY WBC 14.7 3.7 - 10.4 10/22/2012 [facility] HEMATOLOGY Eosinophils 0.0 0.0 - 4.0 10/22/2012 Normal [facility] HEMATOLOGY Segs 88.9 45.0 - 75.0 10/22/2012 [facility] HEMATOLOGY Lymphocytes 9.5 20.0 - 40.0 10/22/2012 LOW [facility] HEMATOLOGY Monocytes 1.5 2.0 - 12.0 10/22/2012 LOW [facility] HEMATOLOGY Lymphocytes # 1.4 1.0 - 5.5 10/22/2012 Normal [facility] HEMATOLOGY Monocytes # 0.2 0.0 - 0.8 10/22/2012 Normal [facility] HEMATOLOGY Eosinophils # 0.0 0.0 - 0.5 10/22/2012 Normal [facility] HEMATOLOGY Basophils 0.1 0.0 - 1.0 10/22/2012 Normal [facility] HEMATOLOGY Segs-Bands # 13.1 1.5 - 8.1 10/22/2012 HI [facility] HEMATOLOGY Basophils # 0.0 0.0 - 0.2 10/22/2012 Normal [facility] CHEMISTRY Total Protein 7.9 6.4 - 8.4 10/21/2012 Normal [facility] CHEMISTRY Bili Total 0.5 0.2 - 1.3 10/21/2012 Normal [facility] CHEMISTRY Globulin 4.6 2.0 - 4.0 10/21/2012 [facility] CHEMISTRY B/C Ratio 7 6 - 25 10/21/2012 Normal [facility] CHEMISTRY AST 110 0 - 37 10/21/2012 [facility] CHEMISTRY A/G Ratio 0.7 0.7 - 1.6 10/21/2012 Normal [facility] CHEMISTRY ALT 86 0 - 65 10/21/2012 [facility] CHEMISTRY Alk Phos 64 39 - 136 10/21/2012 Normal [facility] CHEMISTRY Albumin Lvl 3.3 3.5 - 5.0 10/21/2012 LOW [facility] HEMATOLOGY Sed Rate 45 0 - 20 10/21/2012 [facility] HEMATOLOGY Plt Morph Normal (10/21/2012 09:00:00) 10/21/2012 Normal [facility] HEMATOLOGY RBC Morph Normal (10/21/2012 09:00:00) 10/21/2012 Normal [facility] IMMUNOLOGY HIV 1/2 Ab Negative *NA* (10/21/2012 09:00:00) Negative 10/21/2012 [facility] Microbiology Culture: Respiratory w/Gram Stain 10/21/2012 [facility] BACTERIAL - SEROLOGY U S pneumo Ag Negative (10/21/2012 05:30:21) Negative 10/21/2012 Normal [facility] MICRO MISC - SEROLOGY U Legion Ag Negative 1 (10/21/2012 05:30:21) Negative 10/21/2012 Normal <sup>1</sup>Interpretive Data: This kit tests for Legionella pneumophila Serogroup 1 Antigen. [facility] [facility] Microbiology Culture: Blood 10/21/2012 [facility] CHEMISTRY Lactic Acid Lvl 2.1 0.5 - 2.2 10/21/2012 Normal [facility] Microbiology Culture: Blood 10/21/2012 [facility] CHEMISTRY Temp Art 37.0 10/21/2012 NA [place] CHEMISTRY Mode Art Rm Air (10/20/2012 23:24:00) 10/21/2012 Normal [facility] CHEMISTRY O2 Sat Art 94.4 95.0 - 100.0 10/21/2012 LOW [facility] CHEMISTRY HCO3 Art 26 22 - 26 10/21/2012 Normal [facility] CHEMISTRY BE Art 1 -2-2 - 2 10/21/2012 Normal [facility] CHEMISTRY pCO2 Art 40 35 - 45 10/21/2012 Normal [facility] CHEMISTRY pO2 Art 71 80 - 100 10/21/2012 LOW [facility] CHEMISTRY pH Art 7.42 7.35 - 7.45 10/21/2012 Normal [facility] CHEMISTRY CK MB Index <0.4 0.0 - 2.5 10/21/2012 Normal [facility] CHEMISTRY Troponin-I <0.02 0.00 - 0.40 10/21/2012 Normal [facility] CHEMISTRY B/C Ratio 8 6 - 25 10/21/2012 Normal [facility] CHEMISTRY Globulin 4.9 2.0 - 4.0 10/21/2012 HI [facility] CHEMISTRY A/G Ratio 0.7 0.7 - 1.6 10/21/2012 Normal [facility] CHEMISTRY AST 15 0 - 37 10/21/2012 Normal [facility] CHEMISTRY Alk Phos 55 39 - 136 10/21/2012 Normal [facility] CHEMISTRY ALT 39 0 - 65 10/21/2012 Normal [facility] CHEMISTRY Albumin Lvl 3.5 3.5 - 5.0 10/21/2012 Normal [facility] CHEMISTRY Bili Total 0.4 0.2 - 1.3 10/21/2012 Normal [facility] CHEMISTRY Total Protein 8.4 6.4 - 8.4 10/21/2012 Normal [facility] CHEMISTRY CK MB <0.5 0.5 - 3.6 10/21/2012 Normal [facility] CHEMISTRY Total CK 117 12 - 191 10/21/2012 Normal [facility] Pathology Reports No Data Provided for This [...] the possibility of a mass. SL: 10/24/2012 [facility] Chest 2 views Two views chest. HISTORY: Pneumonia. Comparison 10/20/2012. Right lower lobe opacity persists. Consider pneumonia. No pleural effusion. Heart size normal. SL: 10/21/2012 [facility] Chest 2 views EXAMINATION: Chest 2 views [...] or focal osseous lesion is appreciated. SL:10/20/2012 [facility] Consultation Notes No Data Provided for This Section Discharge Summaries No Data Provided for This Section History and Physicals No Data Provided for This Section Vital Signs Vital Sign Value Date Comments Source Height 152.4 cm 10/08/2016 [facility] Weight 112.727 10/08/2016 [facility] BMI Calculated 48.54 10/08/2016 [facility] Respitory Rate 20 10/24/2012 [facility] Diastolic (mm Hg) 89 10/24/2012 [facility] Systolic (mm Hg) 139 10/24/2012 [facility] Heart Rate 90 10/24/2012 [facility] Temperature Oral (F) 98.5 F 10/24/2012 [facility] Diastolic (mm Hg) 92 10/24/2012 [facility] Systolic (mm Hg) 153 10/24/2012 [facility] Respitory Rate 20 10/24/2012 [facility] Temperature Oral (F) 98.6 F 10/24/2012 [facility] Heart Rate 89 10/24/2012 [facility] Heart Rate 87 10/24/2012 [facility] Respitory Rate 20 10/24/2012 [facility] Temperature Oral (F) 98.4 F 10/24/2012 [facility] Diastolic (mm Hg) 88 10/24/2012 [facility] Systolic (mm Hg) 138 10/24/2012 [facility] Weight 104.119 10/21/2012 [facility] Height 152.4 cm 10/21/2012 [facility] Weight 106.818 10/21/2012 [facility] Height 152.4 cm 10/21/2012 [facility] Encounters Location Location Details Encounter Type Encounter Number Reason For Visit Attending Provider ADM Date DC Date Status Source [facility] Outpatient [id number] LEFT BREASTS CANCER 174.9, 611.0 SHAHE VARTIVARIAN 10/26/2011 10/26/2011 Active [facility] OD [id number] 466.0 - ACUTE BRONCHITI RADHA BELINDA 10/16/2012 Active [facility] Inpatient [id number] TALI EDWARDS 10/20/2012 10/24/2012 Discharged [facility] OP Therapy Patients [id number] Mihir Pantoja 10/16/2014 11/15/2014 [facility] OP Therapy Patients [id number] Mihir Pantoja 11/15/2014 12/15/2014 [facility] Outpatient [id number] Velasquez Lawanda 10/07/2016 10/08/2016 [facility] Outpatient [id number] Velasquez Lawanda 10/08/2016 10/08/2016 [facility] Outpatient [id number] Velasquez Lawanda 11/04/2016 11/05/2016 [facility] Outpatient [id number] Velasquez Lawanda 12/09/2016 12/10/2016 [facility] Outpatient [id number] Velasquez Lawanda 01/10/2017 01/11/2017 [facility] Procedures Procedure Code Date Perfomer Comments Source section [id number] [facility] TM,[facility] Cholecystectomy [id number] [facility] Hernia repair [id number] [facility] Mastectomy [id number] [facility] section [id number] [facility] Cholecystectomy [id number] [facility] Hernia repair [id number] [facility] Mastectomy [id number] [facility] Assessment and Plan No Data Provided for This Section Plan of Care No Data Provided for This Section Social History Social History Date Source Social History TypeResponse 01/11/2017 [facility] Social History TypeResponse 10/08/2016 [facility] Social History TypeResponse 12/15/2014 [facility] Family History No Data Provided for This Section Advance Directives No Data Provided for This Section Functional Status No Data Provided for This Section
[2019-02-24] MEDS ORDERED: ONDANSETRON HCL INJ 2MG/ML 2ML 2 MG/ML VIAL IV STA (22:56)
[2019-02-24] MEDS ORDERED: SODIUM CHLORIDE 0.9% 1000ML 1,000 ML IV STA (22:56)
[2019-02-24] MEDS ORDERED: MORPHINE SULFATE INJ 4 MG/ML INJ 1ML IV STA (22:56)
[2019-02-24] MEDS ORDERED: DIATRIZOATE MEGL/DIATRIZOA SOD 30 ML BTL PO ONE (23:37)
[2019-02-25] VITALS (8 sets, daily range): BP systolic 100–115; BP diastolic 58–85
[2019-02-25] MEDS ORDERED: IOPAMIDOL 370 MG/ML 200 ML INFUS..BTL INJ ONE (00:39)
--- NOTE | 2019-02-25 02:30 | Diagnostic Imaging Report ---
EXAM: CT Abdomen and Pelvis WITHOUT contrast INDICATION: Right-sided pain, dehydration, right flank pain COMPARISON: Abdominal CT 02/20/2019, 02/12/2019. TECHNIQUE: Abdomen and pelvis were scanned utilizing a multidetector helical scanner from the lung base to the pubic symphysis without administration of IV contrast. Absence of intravenous contrast decreases sensitivity for detection of focal lesions and vascular pathology. Coronal and sagittal reformations were obtained. Routine protocol was performed. IV CONTRAST: None ORAL CONTRAST: None COMPLICATIONS: None RADIATION DOSE: Total DLP: 689 mGy*cm Estimated effective dose: (DLP x 0.015 x size factor) mSv CTDIvol has been reviewed. It is below the limits set by the Radiation Protocol Committee (RPC). Dose modulation, iterative reconstruction, and/or weight based adjustment of the mA/kV was utilized to reduce the radiation dose to as low as reasonably achievable. FINDINGS: LINES and TUBES: None. LOWER THORAX: Unremarkable HEPATOBILIARY: No focal hepatic lesions. No biliary ductal dilation. GALLBLADDER: There are cholecystectomy clips. SPLEEN: No splenomegaly. PANCREAS: No focal masses or ductal dilatation. ADRENALS: No adrenal nodules KIDNEYS/URETERS: No hydronephrosis. No cystic or solid mass lesions. No stones. GI TRACT: Minimal thickening of the descending colon and pericolonic fat stranding. No diverticuli. No abnormal distention, wall thickening, or evidence of bowel obstruction. Partial gastrectomy Appendix is normal. PELVIC ORGANS/BLADDER: Hysterectomy. No adnexal masses. Bladder is decompressed, unchanged compared to 02/12/2019.. LYMPH NODES: No lymphadenopathy. 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 PERITONEUM / RETROPERITONEUM: A 1.4 cm densely calcified oval nodule in the left lower abdomen is likely the chronic sequela of a calcified torsed epiploic appendage. No free air or fluid. BONES: There are degenerative changes in the spine. Degenerative changes at pseudoarthrosis of L5-S1. Small Fat-containing left spigelian hernia. SOFT TISSUES: There is a fat containing para-umbilical hernia. Subtle focal fat stranding in the right anterior abdominal subcutaneous soft tissues. Vertical infraumbilical midline laparotomy incision scar intact. IMPRESSION: Nonspecific mild colitis of the descending colon, possibly reactive related to a torsed epiploic appendage, initially seen on abdominal CT 02/12/2019. No diverticula identified. Signed by: Frantz Lopes DO on 02/25/2019 2:26 AM
[2019-02-25 02:51] LABS: BASOPHILS % 0.3 % (0.0-1.0); EOSINOPHILS % 0.1 % (0.0-6.0); HEMATOCRIT 38.5 % (34.2-44.1); HEMOGLOBIN 12.2 g/dL (12.0-16.0); LYMPHOCYTES # (AUTO) 1.7 (1.0-3.2); LYMPHOCYTES % 16.8 % (18.0-39.1); MEAN CORPUSCULAR HGB CONC 31.7 g/dL (31-35); MEAN CORPUSCULAR VOLUME 88.3 fL (81-99); MONOCYTES # (AUTO) 0.7 (0.2-0.8); MONOCYTES % 7.3 % (4.4-11.3); NEUTROPHILS # (AUTO) 7.5 (2.1-6.9); NEUTROPHILS % 75.2 % (38.7-80.0); PLATELET COUNT 281 x10e3/uL (140-360); RED BLOOD COUNT 4.36 x10e6/uL (3.6-5.1)
[2019-02-25 03:11] LABS: ALANINE AMINOTRANSFERASE 21 IU/L (0-55); ALBUMIN 3.2 g/dL (3.5-5.0); ALBUMIN/GLOBULIN RATIO 0.8 (0.8-2.0); ALKALINE PHOSPHATASE 24 IU/L (40-150); ANION GAP 23.1 mmol/L (8-16); BLOOD UREA NITROGEN 14 mg/dL (7-26); BUN/CREATININE RATIO 18 (6-25); CALCIUM 9.5 mg/dL (8.4-10.2); CARBON DIOXIDE 18 mmol/L (22-29); CHLORIDE 107 mmol/L (98-107); CREATININE, SERUM 0.77 mg/dL (0.57-1.11); EST GLOMERULAR FILTRATION RATE > 60 ML/MIN (60-); GLUCOSE 80 mg/dL (74-118); POTASSIUM 5.1 mmol/L (3.5-5.1); SODIUM 143 mmol/L (136-145)
[2019-02-25 03:29] LABS: BILIRUBIN,URINE LARGE (NEGATIVE); CLARITY,URINE CLEAR (CLEAR); COLOR,URINE YELLOW (YELLOW); LEUKOCYTE ESTERASE ,URINE TRACE (NEGATIVE); NITRITE,URINE NEGATIVE (NEGATIVE); PROTEIN,URINE DIPSTICK 1+ (NEGATIVE); URINE UROBILINOGEN 1 mg/dL (0.2 - 1)
[2019-02-25] MEDS ORDERED: METRONIDAZOLE 500MG/NS 100ML 100 ML IV ONE (03:30)
[2019-02-25] MEDS ORDERED: LEVOFLOXACIN 500MG/D5W 100ML IV SCH (03:30)
[2019-02-25 03:35] LABS: KETONES,URINE 2+ (NEGATIVE)
[2019-02-25] MEDS: SODIUM CHLORIDE 0.9% 1000ML 1,000 ML IV SCH ×3 (04:26→20:24)
[2019-02-25 04:29] LABS: LIPASE 39 U/L (8-78)
[2019-02-25 04:41] LABS: BACTERIA,URINE MANY /HPF; EPITHELIAL CELLS,URINE MANY /LPF; WBC,URINE (MAN) 21-50 /HPF (0-5)
--- OUTSIDE RECORDS SUMMARY | 2019-02-25 04:47 | XMS REPORT | Clinical Summary ---
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
--- OUTSIDE RECORDS SUMMARY | 2019-02-25 04:49 | XMS REPORT | Continuity of Care Document ---
Author Author [facility] Organization [facility] Address Unknown Phone Unavailable Care Team Providers Care In Flight Technician Name Role Phone [employer] Unavailable Unavailable Problems Problem Status Onset Date Classification Date Reported Comments Source MORBID OBERSITY E66.01 Active 01/10/2017 [facility] E66.01 MORBID OBESITY Active 11/04/2016 [facility] [id number] Active 2016 [facility] ACUTE RLL PNEUMONIA Active 10/20/2012 [facility] BRONCHITIS Active 10/20/2012 [facility] 466.0 - ACUTE BRONCHITI Active 10/13/2012 [facility] LEFT BREASTS CANCER 174.9, 611.0 Active 10/25/2011 [facility] Bilateral mastectomy Active 05/21/2010 Problem 10/26/2012 [facility] Breast reconstruction with latissimus dorsi flap with implant Active 05/21/2010 [facility] Bilateral mastectomy (procedure) Active 05/21/2010 Problem 01/13/2017 [facility] Breast reconstruction with latissimus dorsi flap with implant (procedure) Active 05/21/2010 Problem 01/13/2017 [facility] Hypertension Resolved Problem 10/26/2012 [facility] Hypothyroid Active Problem 10/26/2012 [facility] Malignant tumor of breast (disorder) Resolved Problem 01/13/2017 [facility] Hypertensive disorder, systemic arterial (disorder) Resolved Problem 01/13/2017 [facility] Hypothyroidism (disorder) Active Problem 01/13/2017 [facility] Breast cancer Resolved Problem 10/26/2012 [facility] PNEUMONIA, ORGANISM NOS Active [facility] RT KNEE PAIN Active [facility] JOINT DIS NOS-L/LEG Active [facility] MORBID (SEVERE) OBESITY DUE TO EXCESS CA Active [place] Medications Medication Details Route Status Patient Instructions Ordering Provider Order Date Source diltiazem 360 mg/24 hours oral capsule, extended release 360 mg=1 cap, PO, Daily, 0 Refill(s) Active 10/08/2016 [facility] atorvastatin 80 mg oral tablet 80 mg=1 tab, PO, Daily, 0 Refill(s) Active 10/08/2016 [facility] Sertraline 100 MG Oral Tablet [Zoloft] 100 mg=1 tab, PO, Daily, 0 Refill(s) Active 10/08/2016 [facility] Hydrochlorothiazide 12.5 MG / Lisinopril 20 MG Oral Tablet 1 tab, PO, Daily, 0 Refill(s) Active 10/08/2016 [facility] pneumococcal 23-valent vaccine 0.5 ml, Route: IM, ONCALL, Start date: 10/24/12 15:27:17, Stop date: 11/23/12 15:22:17 Inactive SYSTEM 10/24/2012 MARION Castrejon,[facility] Robitussin-DM 10 mL, Route: PO, Drug Form: LIQ, Q6H-02, Start date: 10/23/12 20:00:00, Duration: 30 day, Stop date: 11/22/12 14:00:00 PO No Longer Active [facility] 10/24/2012 [facility] Tessalon Perles 200 mg, 2 cap, Route: PO, Drug form: CAP, TID, Start date: 10/23/12 19:22:00, Duration: 30 day, Stop date: 11/22/12 17:00:00 PO No Longer Active [facility] 10/24/2012 [facility] predniSONE 40 mg, 2 tab, Route: PO, Drug form: TAB, Daily, Start date: 10/23/12 9:00:00, Duration: 30 day, Stop date: 11/21/12 9:00:00 PO No Longer Active [facility] 10/23/2012 [facility] Robitussin-DM 10 mL, Route: PO, Drug Form: LIQ, Q6H, PRN Cough, Start date: 10/22/12 20:00:00, Duration: 30 day, Stop date: 11/21/12 19:59:00 PO No Longer Active [facility] 10/23/2012 [facility] Robitussin-DM 10 mL, Route: PO, Drug Form: LIQ, ONCE, Start date: 10/22/12 14:00:00, Stop date: 10/22/12 14:00:00 PO No Longer Active [facility] 10/22/2012 [facility] lactulose 15 gm, 22.5 mL, Route: PO, Drug form: SYRP, ONCE, Start date: 10/22/12 13:34:00, Stop date: 10/22/12 13:34:00 PO No Longer Active [facility] 10/22/2012 [facility] Cymbalta 60 mg, 1 cap, Route: PO, Drug form: DRC, Daily, Start date: 10/22/12 9:00:00, Duration: 30 day, Stop date: 11/20/12 9:00:00 PO No Longer Active [facility] 10/22/2012 [facility] levofloxacin 750 mg, 1 tab, Route: PO, Drug form: TAB, Q24H, Start date: 10/22/12 2:00:00, Duration: 30 day, Stop date: 11/20/12 2:00:00 PO No Longer Active [facility] 10/22/2012 [facility] methylPREDNISolone 125 mg, 2 mL, Route: IV, Drug form: INJ, Q24H, Start date: 10/22/12 0:00:00, Duration: 30 day, Stop date: 11/20/12 0:00:00 IV No Longer Active [facility] 10/22/2012 [facility] budesonide-formoterol 160 mcg-4.5 mcg/inh inhalation aerosol with adapter 1 inhalation, Route: INHALATION, Drug Form: AERO/A, RBID, Start date: 10/21/12 20:00:00, Duration: 30 day, Stop date: 11/20/12 8:00:00 INHALATION No Longer Active [facility] 10/22/2012 [facility] Norvasc 10 mg, 1 tab, Route: PO, Drug form: TAB, Q24H, Start date: 10/21/12 13:00:00, Duration: 30 day, Stop date: 11/19/12 13:00:00 PO No Longer Active [facility] 10/21/2012 [facility] Sodium Chloride 0.9% IV 1,000 mL 1,000 mL, Rate: 50 ml/hr, Infuse over: 20 hr, Route: IV, Dosing Weight 104.119 kg, Total Volume: 1,000, Start date: 10/21/12 12:44:00, Duration: 1 doses or times, Stop date: 10/22/12 8:43:00 IV No Longer Active [facility] 10/21/2012 [facility] Lovenox 40 mg, 0.4 mL, Route: SUB-Q, Drug form: INJ, Daily, Start date: 10/21/12 9:00:00, Duration: 30 day, Stop date: 11/19/12 9:00:00 SUB-Q No Longer Active [facility] 10/21/2012 [facility] Pepcid 20 mg, 1 tab, Route: PO, Drug form: TAB, Q12H, Start date: 10/21/12 9:00:00, Duration: 30 day, Stop date: 11/19/12 21:00:00 PO No Longer Active [facility] 10/21/2012 [facility] Levaquin 750 mg, 150 mL, Route: IV, Drug form: SOLN, ONCE, Start date: 10/21/12 2:15:00, Stop date: 10/21/12 2:15:00 IV No Longer Active [facility] 10/21/2012 [facility] DuoNeb inhalation solution 3 mL, Route: NEB, Drug Form: SOLN, RQ6H, PRN Wheezing, Start date: 10/21/12 1:54:00, Duration: 30 day, Stop date: 11/20/12 1:53:00 NEB No Longer Active [facility] 10/21/2012 [facility] Robitussin 200 mg, 10 mL, Route: PO, Drug form: SYRP, Q4H, PRN Cough, Start date: 10/21/12 1:51:00, Duration: 30 day, Stop date: 11/20/12 1:50:00 PO No Longer Active [facility] 10/21/2012 [facility] Sodium Chloride 0.9% IV 250 mL, Route: IVPB, Start date: 10/21/12 1:51:00, Duration: 30 day, Stop date: 11/20/12 1:50:00, PRN Line Flush IVPB No Longer Active [facility] 10/21/2012 [facility] BD Normal Saline Flush 10 mL, Route: IVP, Drug Form: INJ, PRN, PRN Line Flush, Start date: 10/21/12 1:51:00, Duration: 30 day, Stop date: 11/20/12 1:50:00 IVP No Longer Active [facility] 10/21/2012 [facility] SoluMedrol 125 mg, Route: IV, ONCE, Dosing Weight 106.818, kg, Start date: 10/21/12 0:56:00, Stop date: 10/21/12 0:56:00 IV No Longer Active [facility] 10/21/2012 [facility] vancomycin 1 gm, 200 mL, Route: IVPB, Drug form: INJ, ONCE, Dosing Weight 106.818, kg, Priority: STAT, Start date: 10/20/12 23:24:00, Stop date: 10/20/12 23:24:00 IVPB No Longer Active [facility] 10/21/2012 [facility] cefepime + Sodium Chloride 0.9% IV 100 mL 2 gm, Route: IVPB, Drug form: INJ, ONCE, Dosing Weight 106.818, kg, Priority: STAT, Start date: 10/20/12 23:24:00, Stop date: 10/20/12 23:24:00 IVPB No Longer Active [facility]10/21/2012 [facility] [place] 5/325 oral tablet 1 tab, Route: PO, Drug Form: TAB, Dosing Weight 106.818, kg, ONCE, Start date: 10/20/12 23:11:00, Stop date: 10/20/12 23:11:00 PO No Longer Active [facility] 10/21/2012 [facility] ibuprofen 800 mg, 1 tab, Route: PO, Drug form: TAB, ONCE, Dosing Weight 106.818, kg, Priority: STAT, Start date: 10/20/12 23:11:00, Stop date: 10/20/12 23:11:00 PO No Longer Active [facility] 10/21/2012 [facility] ibuprofen 600 mg, 1 tab, Route: PO, Drug form: TAB, ONCE, Dosing Weight 106.818, kg, Priority: STAT, Start date: 10/20/12 23:08:00, Stop date: 10/20/12 23:08:00 PO No Longer Active [facility] 10/21/2012 [facility] [place] 5/325 oral tablet 1 tab, Route: PO, Drug Form: TAB, Dosing Weight 106.818, kg, ONCE, STAT, Start date: 10/20/12 23:08:00, Stop date: 10/20/12 23:08:00 PO No Longer Active [facility]10/21/2012 [facility] ipratropium 0.5 mg, 2.5 mL, Route: NEB, Drug form: SOLN, Q15Min, Dosing Weight 106.818, kg, Priority: STAT, Start date: 10/20/12 22:12:00, Duration: 2 doses or times, Stop date: 10/20/12 22:27:00 NEB No Longer Active [facility] 10/21/2012 [facility] albuterol 0.083% inhalation solution 2.49 mg, 3 mL, Route: NEB, Drug form: SOLN, Q15Min, Dosing Weight 106.818, kg, Priority: STAT, Start date: 10/20/12 22:12:00, Duration: 2 doses or times, Stop date: 10/20/12 22:27:00 NEB No Longer Active [facility] 10/21/2012 [facility] Allergies, Adverse Reactions, Alerts Substance Category Reaction Severity Reaction type Status Date Reported Comments Source NKFA Assertion Drug allergy Active [facility] Immunizations Immunization Date Given Site Status Last Updated Comments Source pneumococcal 23-valent vaccine 10/24/2012 Left Deltoid completed Anu [facility] pneumococcal 23-valent vaccine 10/24/2012 completed Anu MARION Castrejon,[facility] Results Order Name Results Value [...] should be multiplied by the estimated BMI. [facility] CHEMISTRY Creatinine Lvl 0.8 0.5 - 1.4 10/24/2012 Normal [facility] CHEMISTRY Sodium Lvl 141 135 - 145 10/24/2012 Normal [facility] CHEMISTRY Glucose Lvl 65 70 - 99 10/24/2012 LOW <sup>5</sup>Interpretive Data: Adult reference range values reflect the clinical guidelines
of the [place] [employer]. [facility] CHEMISTRY Potassium Lvl 3.7 3.5 - 5.1 10/24/2012 Normal [facility] CHEMISTRY AGAP 13.7 10.0 - 20.0 10/24/2012 Normal [facility] CHEMISTRY Calcium Lvl 8.6 8.5 - 10.5 10/24/2012 Normal [facility] CHEMISTRY Chloride Lvl 104 95 - 109 10/24/2012 Normal [facility] CHEMISTRY BUN 19 7 - 22 10/24/2012 Normal [facility] CHEMISTRY CO2 27 24 - 32 10/24/2012 Normal [facility] HEMATOLOGY WBC 11.6 3.7 - 10.4 10/24/2012 HI [facility] HEMATOLOGY MCV 84.4 81.0 - 99.0 10/24/2012 Normal [facility] HEMATOLOGY Hct 33.0 36.0 - 48.0 10/24/2012 LOW [facility] HEMATOLOGY Hgb 10.9 12.0 - 16.0 10/24/2012 LOW [facility] HEMATOLOGY RBC 3.90 4.20 - 5.40 10/24/2012 LOW [facility] HEMATOLOGY MPV 8.2 7.4 - 10.4 10/24/2012 Normal [facility] HEMATOLOGY Platelet 384 133 - 450 10/24/2012 Normal [facility] HEMATOLOGY MCHC 32.9 32.0 - 36.0 10/24/2012 Normal [facility] HEMATOLOGY MCH 27.8 27.0 - 31.0 10/24/2012 Normal [facility] HEMATOLOGY RDW 15.2 11.5 - 14.5 10/24/2012 [facility] HEMATOLOGY Polychrom Slight (10/24/2012 05:10:00) None Seen 10/24/2012 Normal [facility] HEMATOLOGY Lymphocytes 20.5 20.0 - 40.0 10/24/2012 Normal [facility] HEMATOLOGY Eosinophils 0.0 0.0 - 4.0 10/24/2012 Normal [facility] HEMATOLOGY Basophils 0.3 0.0 - 1.0 10/24/2012 Normal [facility] HEMATOLOGY Monocytes 8.7 2.0 - 12.0 10/24/2012 Normal [facility] HEMATOLOGY Segs 70.5 45.0 - 75.0 10/24/2012 Normal [facility] HEMATOLOGY Segs-Bands # 8.2 1.5 - 8.1 10/24/2012 HI [facility] HEMATOLOGY Lymphocytes # 2.4 1.0 - 5.5 10/24/2012 Normal [facility] HEMATOLOGY Monocytes # 1.0 0.0 - 0.8 10/24/2012 HI [facility] HEMATOLOGY Eosinophils # 0.0 0.0 - 0.5 10/24/2012 Normal [facility] HEMATOLOGY Basophils # 0.0 0.0 - 0.2 10/24/2012 Normal [facility] CHEMISTRY eGFR 77 10/23/2012 NA [...] should be multiplied by the estimated BMI. [facility] CHEMISTRY Sodium Lvl 140 135 - 145 10/23/2012 Normal [facility] CHEMISTRY Glucose Lvl 110 70 - 99 10/23/2012 [place] <sup>6</sup>Interpretive Data: Adult reference range values reflect the clinical guidelines
of the [place] [employer]. [facility] CHEMISTRY Creatinine Lvl 1.0 0.5 - 1.4 10/23/2012 Normal [facility] CHEMISTRY BUN 24 7 - 22 10/23/2012 [facility] CHEMISTRY Calcium Lvl 9.1 8.5 - 10.5 10/23/2012 Normal [facility] CHEMISTRY Potassium Lvl 3.7 3.5 - 5.1 10/23/2012 Normal [facility] CHEMISTRY CO2 21 24 - 32 10/23/2012 LOW [facility] CHEMISTRY Chloride Lvl 105 95 - 109 10/23/2012 Normal [facility] CHEMISTRY AGAP 17.7 10.0 - 20.0 10/23/2012 Normal [facility] HEMATOLOGY Basophils 0.0 0.0 - 1.0 10/23/2012 [facility] HEMATOLOGY Eosinophils 0.0 0.0 - 4.0 10/23/2012 [facility] HEMATOLOGY Monocytes 5.7 2.0 - 12.0 10/23/2012 [facility] HEMATOLOGY Lymphocytes 8.1 20.0 - 40.0 10/23/2012 [facility] HEMATOLOGY Segs 86.2 45.0 - 75.0 10/23/2012 [facility] HEMATOLOGY Basophils # 0.0 0.0 - 0.2 10/23/2012 Normal [facility] HEMATOLOGY Eosinophils # 0.0 0.0 - 0.5 10/23/2012 [facility] HEMATOLOGY Monocytes # 1.1 0.0 - 0.8 10/23/2012 [facility] HEMATOLOGY Lymphocytes # 1.5 1.0 - 5.5 10/23/2012 [facility] HEMATOLOGY Segs-Bands # 16.3 1.5 - 8.1 10/23/2012 [facility] HEMATOLOGY MPV 7.9 7.4 - 10.4 10/23/2012 [facility] HEMATOLOGY Platelet 394 133 - 450 10/23/2012 [facility] HEMATOLOGY RDW 15.4 11.5 - 14.5 10/23/2012 [facility] HEMATOLOGY MCHC 33.1 32.0 - 36.0 10/23/2012 [facility] HEMATOLOGY MCH 27.8 27.0 - 31.0 10/23/2012 [facility] HEMATOLOGY MCV 84.0 81.0 - 99.0 10/23/2012 Normal [facility] HEMATOLOGY Hct 35.4 36.0 - 48.0 10/23/2012 [facility] HEMATOLOGY Hgb 11.7 12.0 - 16.0 10/23/2012 [facility] HEMATOLOGY RBC 4.21 4.20 - 5.40 10/23/2012 [facility] HEMATOLOGY WBC 19.0 3.7 - 10.4 10/23/2012 [facility] CHEMISTRY Hgb A1C 5.7 10/22/2012 [...] 240 Poor Control, take action to lower [facility] CHEMISTRY Magnesium Lvl 2.1 1.8 - 2.4 10/22/2012 Normal [facility] CHEMISTRY eGFR 116 10/22/2012 NA [...] should be multiplied by the estimated BMI. [facility] CHEMISTRY Potassium Lvl 4.5 3.5 - 5.1 10/22/2012 Normal [facility] CHEMISTRY Sodium Lvl 142 135 - 145 10/22/2012 Normal [facility] CHEMISTRY Creatinine Lvl 0.7 0.5 - 1.4 10/22/2012 Normal [facility] CHEMISTRY Chloride Lvl 103 95 - 109 10/22/2012 Normal [facility] CHEMISTRY Glucose Lvl 121 70 - 99 10/22/2012 [place] <sup>7</sup>Interpretive Data: Adult reference range values reflect the clinical guidelines
of the [place] [employer]. [facility] CHEMISTRY Alk Phos 47 39 - 136 10/22/2012 Normal [facility] CHEMISTRY BUN 14 7 - 22 10/22/2012 Normal [facility] CHEMISTRY ALT 56 0 - 65 10/22/2012 Normal [facility] CHEMISTRY CO2 21 24 - 32 10/22/2012 LOW [facility] CHEMISTRY Albumin Lvl 3.3 3.5 - 5.0 10/22/2012 LOW [facility] CHEMISTRY AGAP 22.5 10.0 - 20.0 10/22/2012 [facility] CHEMISTRY Total Protein 7.9 6.4 - 8.4 10/22/2012 Normal [facility] CHEMISTRY Globulin 4.6 2.0 - 4.0 10/22/2012 [facility] CHEMISTRY B/C Ratio 20 6 - 25 10/22/2012 Normal [facility] CHEMISTRY Bili Total 0.4 0.2 - 1.3 10/22/2012 Normal [facility] CHEMISTRY Calcium Lvl 9.1 8.5 - 10.5 10/22/2012 Normal [facility] CHEMISTRY AST 32 0 - 37 10/22/2012 Normal [facility] CHEMISTRY A/G Ratio 0.7 0.7 - 1.6 10/22/2012 Normal [facility] HEMATOLOGY MCH 28.1 27.0 - 31.0 10/22/2012 Normal [facility] HEMATOLOGY MCV 84.2 81.0 - 99.0 10/22/2012 Normal [facility] HEMATOLOGY RBC 4.28 4.20 - 5.40 10/22/2012 Normal [facility] HEMATOLOGY Hgb 12.1 12.0 - 16.0 10/22/2012 [facility] HEMATOLOGY Hct 36.1 36.0 - 48.0 10/22/2012 Normal [facility] HEMATOLOGY MPV 8.5 7.4 - 10.4 10/22/2012 Normal [facility] HEMATOLOGY MCHC 33.5 32.0 - 36.0 10/22/2012 Normal [facility] HEMATOLOGY RDW 15.0 11.5 - 14.5 10/22/2012 [facility] HEMATOLOGY Platelet 375 133 - 450 10/22/2012 Normal [facility] HEMATOLOGY WBC 14.7 3.7 - 10.4 10/22/2012 [facility] HEMATOLOGY Eosinophils 0.0 0.0 - 4.0 10/22/2012 Normal [facility] HEMATOLOGY Segs 88.9 45.0 - 75.0 10/22/2012 [facility] HEMATOLOGY Lymphocytes 9.5 20.0 - 40.0 10/22/2012 LOW [facility] HEMATOLOGY Monocytes 1.5 2.0 - 12.0 10/22/2012 LOW [facility] HEMATOLOGY Lymphocytes # 1.4 1.0 - 5.5 10/22/2012 Normal [facility] HEMATOLOGY Monocytes # 0.2 0.0 - 0.8 10/22/2012 Normal [facility] HEMATOLOGY Eosinophils # 0.0 0.0 - 0.5 10/22/2012 Normal [facility] HEMATOLOGY Basophils 0.1 0.0 - 1.0 10/22/2012 Normal [facility] HEMATOLOGY Segs-Bands # 13.1 1.5 - 8.1 10/22/2012 [facility] HEMATOLOGY Basophils # 0.0 0.0 - 0.2 10/22/2012 Normal [facility] CHEMISTRY Total Protein 7.9 6.4 - 8.4 10/21/2012 Normal [facility] CHEMISTRY Bili Total 0.5 0.2 - 1.3 10/21/2012 Normal [facility] CHEMISTRY Globulin 4.6 2.0 - 4.0 10/21/2012 [facility] CHEMISTRY B/C Ratio 7 6 - 25 10/21/2012 Normal [facility] CHEMISTRY AST 110 0 - 37 10/21/2012 [facility] CHEMISTRY A/G Ratio 0.7 0.7 - 1.6 10/21/2012 Normal [facility] CHEMISTRY ALT 86 0 - 65 10/21/2012 [facility] CHEMISTRY Alk Phos 64 39 - 136 10/21/2012 Normal [facility] CHEMISTRY Albumin Lvl 3.3 3.5 - 5.0 10/21/2012 LOW [facility] HEMATOLOGY Sed Rate 45 0 - 20 10/21/2012 [facility] HEMATOLOGY Plt Morph Normal (10/21/2012 09:00:00) 10/21/2012 Normal [facility] HEMATOLOGY RBC Morph Normal (10/21/2012 09:00:00) 10/21/2012 Normal [facility] IMMUNOLOGY HIV 1/2 Ab Negative *NA* (10/21/2012 09:00:00) Negative 10/21/2012 [facility] Microbiology Culture: Respiratory w/Gram Stain 10/21/2012 [facility] BACTERIAL - SEROLOGY U S pneumo Ag Negative (10/21/2012 05:30:21) Negative 10/21/2012 Normal [facility] MICRO MISC - SEROLOGY U Legion Ag Negative 1 (10/21/2012 05:30:21) Negative 10/21/2012 Normal <sup>1</sup>Interpretive Data: This kit tests for Legionella pneumophila Serogroup 1 Antigen. [facility] Microbiology Culture: Blood 10/21/2012 [facility] CHEMISTRY Lactic Acid Lvl 2.1 0.5 - 2.2 10/21/2012 Normal [facility] Microbiology Culture: Blood 10/21/2012 [facility] CHEMISTRY Temp Art 37.0 10/21/2012 [facility] CHEMISTRY Mode Art Rm Air (10/20/2012 23:24:00) 10/21/2012 Normal [facility] CHEMISTRY O2 Sat Art 94.4 95.0 - 100.0 10/21/2012 LOW [facility] CHEMISTRY HCO3 Art 26 22 - 26 10/21/2012 Normal [facility] CHEMISTRY BE Art 1 -2-2 - 2 10/21/2012 Normal [facility] CHEMISTRY pCO2 Art 40 35 - 45 10/21/2012 Normal [facility] CHEMISTRY pO2 Art 71 80 - 100 10/21/2012 LOW [facility] CHEMISTRY pH Art 7.42 7.35 - 7.45 10/21/2012 Normal [facility] CHEMISTRY CK MB Index <0.4 0.0 - 2.5 10/21/2012 Normal [facility] CHEMISTRY Troponin-I <0.02 0.00 - 0.40 10/21/2012 Normal [facility] CHEMISTRY B/C Ratio 8 6 - 25 10/21/2012 Normal [facility] CHEMISTRY Globulin 4.9 2.0 - 4.0 10/21/2012 HI [facility] CHEMISTRY A/G Ratio 0.7 0.7 - 1.6 10/21/2012 Normal [facility] CHEMISTRY AST 15 0 - 37 10/21/2012 Normal [facility] CHEMISTRY Alk Phos 55 39 - 136 10/21/2012 Normal [facility] CHEMISTRY ALT 39 0 - 65 10/21/2012 Normal [facility] CHEMISTRY Albumin Lvl 3.5 3.5 - 5.0 10/21/2012 Normal [facility] CHEMISTRY Bili Total 0.4 0.2 - 1.3 10/21/2012 Normal [facility] CHEMISTRY Total Protein 8.4 6.4 - 8.4 10/21/2012 Normal [facility] CHEMISTRY CK MB <0.5 0.5 - 3.6 10/21/2012 Normal [facility] CHEMISTRY Total CK 117 12 - 191 10/21/2012 Normal [facility] Pathology Reports No Data Provided [...] the possibility of a mass. SL: 10/24/2012 [facility] Chest 2 views Two views chest. HISTORY: Pneumonia. Comparison 10/20/2012. Right lower lobe opacity persists. Consider pneumonia. No pleural effusion. Heart size normal. SL: 10/21/2012 [facility] Chest 2 views EXAMINATION: Chest [...] or focal osseous lesion is appreciated. SL:10/20/2012 [facility] Consultation Notes No Data Provided for This Section Discharge Summaries No Data Provided for This Section History and Physicals No Data Provided for This Section Vital Signs Vital Sign Value Date Comments Source Height 152.4 cm 10/08/2016 [facility] Weight 112.727 10/08/2016 [facility] BMI Calculated 48.54 10/08/2016 [facility] Respitory Rate 20 10/24/2012 [facility] Diastolic (mm Hg) 89 10/24/2012 [facility] Systolic (mm Hg) 139 10/24/2012 [facility] Heart Rate 90 10/24/2012 [facility] Temperature Oral (F) 98.5 F 10/24/2012 [facility] Diastolic (mm Hg) 92 10/24/2012 [facility] Systolic (mm Hg) 153 10/24/2012 [facility] Respitory Rate 20 10/24/2012 [facility] Temperature Oral (F) 98.6 F 10/24/2012 [facility] Heart Rate 89 10/24/2012 [facility] Heart Rate 87 10/24/2012 [facility] Respitory Rate 20 10/24/2012 [facility] Temperature Oral (F) 98.4 F 10/24/2012 [facility] Diastolic (mm Hg) 88 10/24/2012 [facility] Systolic (mm Hg) 138 10/24/2012 [facility] Weight 104.119 10/21/2012 [facility] Height 152.4 cm 10/21/2012 [facility] Weight 106.818 10/21/2012 [facility] Height 152.4 cm 10/21/2012 [facility] Encounters Location Location Details Encounter Type Encounter Number Reason For Visit Attending Provider ADM Date DC Date Status Source [facility] Outpatient [id number] LEFT BREASTS CANCER 174.9, 611.0 SHAHE VARTIVARIAN 10/26/2011 10/26/2011 Active [facility] OD [id number] 466.0 - ACUTE BRONCHITI RADHA BELINDA 10/16/2012 Active [facility] Inpatient [id number] TALI EDWARDS 10/20/2012 10/24/2012 Discharged [facility] OP Therapy Patients [id number] Mihir Pantoja 10/16/2014 11/15/2014 [facility] OP Therapy Patients [id number] Mihir Pantoja 11/15/2014 12/15/2014 [facility] Outpatient [id number] Velasquez Lawanda 10/07/2016 10/08/2016 [facility] Outpatient [id number] Velasquez Lawanda 10/08/2016 10/08/2016 [facility] Outpatient [id number] Velasquez Lawanda 11/04/2016 11/05/2016 [facility] Outpatient [id number] Velasquez Lawanda 12/09/2016 12/10/2016 [facility] Outpatient [id number] Velasquez Lawanda 01/10/2017 01/11/2017 [facility] Procedures Procedure Code Date Perfomer Comments Source section [id number] [facility] TM,[facility] Cholecystectomy [id number] [facility], [facility] [facility] [id number] [facility] Mastectomy [id number] [facility] section [id number] [facility] Cholecystectomy [id number] [facility] Hernia repair [id number] [facility] Mastectomy [id number] [facility] Assessment and Plan No Data Provided for This Section Plan of Care No Data Provided for This Section Social History Social History Date Source Social History TypeResponse 01/11/2017 [facility] Social History TypeResponse 10/08/2016 [facility] Social History TypeResponse 12/15/2014 [facility] Family History No Data Provided for This Section Advance Directives No Data Provided for This Section Functional Status No Data Provided for This Section
[2019-02-25] MEDS ORDERED: METRONIDAZOLE 500MG/NS 100ML IV SCH (06:00)
--- NOTE | 2019-02-25 07:24 | NUR ---
report to marsha mooney
--- NOTE | 2019-02-25 09:32 | NUR ---
PATIENT SITTIN UP EATING MEAL TRAY
--- NOTE | 2019-02-25 09:37 | NUR ---
H&P cc: abdominal pain HPI: 58yoF, PCP , with recent gastric sleeve, now with abdominal pain, found to have acute colitis. Pt has been having N/V daily which has been chronic. PMH: Hypertensive heart ds, HLD, Allergic rhinitis, severe obesity, BMI 51.8 PSHx: lap vertical sleeve gastrectomy, lap loulou, , hysterectomy, left foot Allergies; see emr FH/SH; ; no etoh/cigs Meds; see MAR ROS: no cp/sob/dizziness/skin rash/f/c/s/back pain/vision changes/skin rash v/s; revd PE; tired appearing anicteric ns1s2 mod bs soft nd; lower abdomen tender B/L no e/t skin dry n. affect a&px3; bermeo labs/meds revd A/P: Acute colitis UTI Hypertensive heart ds HLD Allergic rhinitis Severe obesity BMI 51.8 PLAN IVF IV abx lipids/hba1c multivitamin/mineral PT consult SCD/pepcid dispo: Brandon Overton MD,PhD.
[2019-02-25] MEDS ORDERED: LISINOPRIL20 MG PO (10:45)
[2019-02-25] MEDS ORDERED: HYDROCHLOROTHIA25 MG PO (10:46)
[2019-02-25] MEDS: ONDANSETRON HCL INJ 2MG/ML 2ML 2 MG/ML VIAL IV PRN ×3 (10:58→20:31)
[2019-02-25] MEDS: MORPHINE SULFATE INJ 4 MG/ML INJ 1ML IV PRN ×2 (10:58→15:42)
[2019-02-25] MEDS: CEFTRIAXONE SOD 1 GM/NS 50 ML 50 ML IV SCH (11:12)
[2019-02-25] MEDS: LISINOPRIL 20 MG TAB PO SCH (11:30)
[2019-02-25] MEDS: HYDROCHLOROTHIAZIDE 25 MG TAB PO SCH (11:30)
[2019-02-25] MEDS: METRONIDAZOLE 500MG/NS 100ML IV SCH ×3 (13:40→20:24)
[2019-02-25] MEDS ORDERED: PANTOPRAZOLE SOD 40 MG TABEC PO ONE (15:30)
[2019-02-25] MEDS ORDERED: FAMOTIDINE 20 MG TAB PO SCH (16:30)
--- NOTE | 2019-02-25 18:54 | NUR ---
RECEIVED REPORT FROM DAY NURSE. PATIENT IS RESTING COMFORTABLY IN BED. BED IS IN LOWEST POSITION AND CALL MANCILLA IS WITHIN REACH. WILL CONTINUE TO MONITOR PATIENT.
[2019-02-25] MEDS: SERTRALINE HCL 100 MG TAB PO SCH (20:24)
[2019-02-26] VITALS (7 sets, daily range): BP systolic 117–158; BP diastolic 67–98
[2019-02-26] MEDS: METRONIDAZOLE 500MG/NS 100ML IV SCH ×4 (02:52→21:11)
[2019-02-26] MEDS: SODIUM CHLORIDE 0.9% 1000ML 1,000 ML IV SCH ×2 (03:19→19:17)
--- NOTE | 2019-02-26 06:41 | NUR ---
IM- progress note O/N; no events ROS: no cp/sob/dizziness/skin rash/f/c/s/back pain/vision changes/skin rash v/s; revd PE; tired appearing anicteric ns1s2 mod bs soft nd; lower abdomen tender B/L no e/t skin dry n. affect a&px3; bermeo labs/meds revd A/P: Acute colitis UTI Hypertensive heart ds HLD Allergic rhinitis Severe obesity BMI 51.8 PLAN IVF IV abx lipids/hba1c multivitamin/mineral PT consult SCD/pepcid dispo: cont care. Brandon Overton MD,PhD.
--- NOTE | 2019-02-26 06:57 | NUR ---
REPORT GIVEN TO DAY NURSE. PATIENT IS RESTING COMFORTABLY IN BED. BED IS IN LOWEST POSITION AND CALL LIGHT IS WITHIN REACH.
[2019-02-26] MEDS ORDERED: PANTOPRAZOLE SOD 40 MG TABEC PO SCH (07:30)
[2019-02-26] MEDS: LISINOPRIL 20 MG TAB PO SCH (08:20)
[2019-02-26] MEDS: HYDROCHLOROTHIAZIDE 25 MG TAB PO SCH (08:20)
[2019-02-26] MEDS: DILTIAZEM HCL 60 MG TAB PO SCH (08:20)
[2019-02-26] MEDS: ONDANSETRON HCL INJ 2MG/ML 2ML 2 MG/ML VIAL IV PRN ×2 (08:23→14:37)
[2019-02-26] MEDS: CEFTRIAXONE SOD 1 GM/NS 50 ML 50 ML IV SCH (10:04)
[2019-02-26] MEDS: MORPHINE SULFATE INJ 4 MG/ML INJ 1ML IV PRN (14:36)
--- NOTE | 2019-02-26 19:06 | NUR ---
walking rounds done. patient is awake, alert, and able to make needs known. POC discussed. Visitor at the bedside. Both instructed to call for assistance as needed and verbalized understanding. Call nuno within reach.
[2019-02-26] MEDS: KETOROLAC TROMETHAMINE 30 MG/ML VIAL IM SCH (19:10)
[2019-02-26] MEDS: SERTRALINE HCL 100 MG TAB PO SCH (21:00)
[2019-02-26] MEDS: ATORVASTATIN 40 MG TAB PO SCH (21:00)
[2019-02-26] MEDS ORDERED: PANTOPRAZOLE 40 MG 10ML VIAL IV STA (23:58)
[2019-02-27] VITALS (7 sets, daily range): BP systolic 119–148; BP diastolic 67–82
[2019-02-27] MEDS ORDERED: METOCLOPRAMIDE HCL 10 MG/2ML VIAL IV ONE
[2019-02-27] MEDS ORDERED: PANTOPRAZOLE 40 MG 10ML VIAL ONE ×2 (00:32→13:23)
[2019-02-27] MEDS ORDERED: SODIUM CHLORIDE 0.9% 50ML 50 ML ONE (00:37)
[2019-02-27] MEDS: KETOROLAC TROMETHAMINE 30 MG/ML VIAL IM SCH (00:54)
[2019-02-27] MEDS: PANTOPRAZOLE INJ 40 MG in SODIUM CHLORIDE 0.9% 50ML 50 ML IV SCH ×5 (00:55→21:03)
[2019-02-27] MEDS: METRONIDAZOLE 500MG/NS 100ML IV SCH ×4 (03:30→21:03)
[2019-02-27] MEDS: SODIUM CHLORIDE 0.9% 1000ML 1,000 ML IV SCH ×3 (03:59→19:19)
[2019-02-27] MEDS: METOCLOPRAMIDE HCL 10 MG/2ML VIAL IV SCH ×3 (05:29→17:20)
--- NOTE | 2019-02-27 06:11 | NUR ---
IM- progress note O/N; no events ROS: no cp/sob/dizziness/skin rash/f/c/s/back pain/vision changes/skin rash v/s; revd PE; tired appearing anicteric ns1s2 mod bs soft nd; lower abdomen tender B/L no e/t skin dry n. affect a&px3; bermeo labs/meds revd A/P: Acute colitis UTI Hypertensive heart ds HLD Allergic rhinitis Severe obesity BMI 51.8 PLAN IVF IV abx lipids/hba1c multivitamin/mineral PT consult SCD/pepcid dispo: cont care. 02/27 check labs and urine culture; f/u GI recs. Brandon Overton MD,PhD.
--- NOTE | 2019-02-27 07:14 | NUR ---
Consult Note: HPI: Well-known patient of mine, s/p LSG about a month ago. Presents with abd pain, dysphagia, nausea and vomiting. CT scan showed epiploic appendagitis. She's tolerating clears. She's passing gas. Pmhx: morbid obesity Pshx: lap sleeve gastrectomy ROS: admits nausea, abd pain PE: vss, af Gen- no distress Abd- tender, obese A/P: Epiploic appendagitis -Advance to full liquid diet today -Ambulate -Pain control -Ok to send home in 24-48 hr, once pain is better controlled -No surgical intervention needed. -Appreciate care provided by internal medicine team.
[2019-02-27 07:46] LABS: BASOPHILS % 0.4 % (0.0-1.0); EOSINOPHILS # (AUTO) 0.1 (0.0-0.4); HEMATOCRIT 35.4 % (34.2-44.1); HEMOGLOBIN 10.8 g/dL (12.0-16.0); LYMPHOCYTES # (AUTO) 1.5 (1.0-3.2); LYMPHOCYTES % 29.3 % (18.0-39.1); MEAN CORPUSCULAR HEMOGLOBIN 27.5 pg (28-32); MEAN CORPUSCULAR HGB CONC 30.5 g/dL (31-35); MEAN CORPUSCULAR VOLUME 90.1 fL (81-99); MONOCYTES # (AUTO) 0.5 (0.2-0.8); MONOCYTES % 10.5 % (4.4-11.3); NEUTROPHILS % 58.6 % (38.7-80.0); PLATELET COUNT 245 x10e3/uL (140-360); RED BLOOD COUNT 3.93 x10e6/uL (3.6-5.1); RED CELL DISTRIBUTION WIDTH 15.2 % (11.7-14.4)
[2019-02-27 08:05] LABS: ANION GAP 14.2 mmol/L (8-16); BLOOD UREA NITROGEN 8 mg/dL (7-26); BUN/CREATININE RATIO 10 (6-25); CALCIUM 8.9 mg/dL (8.4-10.2); CARBON DIOXIDE 23 mmol/L (22-29); CHLORIDE 108 mmol/L (98-107); CREATININE, SERUM 0.82 mg/dL (0.57-1.11); EST GLOMERULAR FILTRATION RATE > 60 ML/MIN (60-); GLUCOSE 80 mg/dL (74-118); MAGNESIUM 1.7 MG/DL (1.3-2.1); PHOSPHORUS 3.1 MG/DL (2.3-4.7); POTASSIUM 3.2 mmol/L (3.5-5.1); SODIUM 142 mmol/L (136-145)
[2019-02-27] MEDS: LISINOPRIL 20 MG TAB PO SCH (09:12)
[2019-02-27] MEDS: CEFTRIAXONE SOD 1 GM/NS 50 ML 50 ML IV SCH (09:12)
[2019-02-27] MEDS: DILTIAZEM HCL 60 MG TAB PO SCH (09:12)
[2019-02-27] MEDS: HYDROCHLOROTHIAZIDE 25 MG TAB PO SCH (09:12)
[2019-02-27] MEDS: ATORVASTATIN 40 MG TAB PO SCH (21:00)
[2019-02-27] MEDS: SERTRALINE HCL 100 MG TAB PO SCH (21:00)
[2019-02-28] VITALS (7 sets, daily range): BP systolic 127–156; BP diastolic 68–90
[2019-02-28] MEDS: PANTOPRAZOLE INJ 40 MG in SODIUM CHLORIDE 0.9% 50ML 50 ML IV SCH ×2 (00:25→05:29)
[2019-02-28] MEDS: METOCLOPRAMIDE HCL 10 MG/2ML VIAL IV SCH ×4 (00:27→17:36)
[2019-02-28] MEDS: SODIUM CHLORIDE 0.9% 1000ML 1,000 ML IV SCH ×3 (02:55→20:49)
[2019-02-28] MEDS: METRONIDAZOLE 500MG/NS 100ML IV SCH ×4 (03:30→20:49)
--- NOTE | 2019-02-28 06:31 | NUR ---
IM- progress note O/N; no events ROS: no cp/sob/dizziness/skin rash/f/c/s/back pain/vision changes/skin rash v/s; revd PE; tired appearing anicteric ns1s2 mod bs soft nd; lower abdomen tender B/L no e/t skin dry n. affect a&px3; bermeo labs/meds revd A/P: Acute colitis UTI Hypertensive heart ds HLD Allergic rhinitis Severe obesity BMI 51.8 PLAN IVF IV abx lipids/hba1c multivitamin/mineral PT consult SCD/pepcid dispo: cont care. 02/27 check labs and urine culture; f/u GI recs. 02/28 check K Brandon Overton MD,PhD.
--- NOTE | 2019-02-28 06:55 | NUR ---
Walking rounds and report given. Call nuno within reach.
--- NOTE | 2019-02-28 06:55 | NUR ---
Walking rounds and report given. Call nuno within reach.
[2019-02-28] MEDS: LISINOPRIL 20 MG TAB PO SCH (09:37)
[2019-02-28] MEDS: HYDROCHLOROTHIAZIDE 25 MG TAB PO SCH (09:37)
[2019-02-28] MEDS: DILTIAZEM HCL 60 MG TAB PO SCH (09:37)
[2019-02-28] MEDS: CEFTRIAXONE SOD 1 GM/NS 50 ML 50 ML IV SCH (09:38)
[2019-02-28] MEDS ORDERED: POTASSIUM CHLORIDE 20 MEQ TAB CR PO ONE (09:45)
[2019-02-28] MEDS ORDERED: POTASSIUM CHLORIDE 20MEQ/100ML 200 ML IV ONE (10:15)
[2019-02-28] MEDS ORDERED: POTASSIUM CHLORIDE 10MEQ EA PO ONE (10:15)
--- NOTE | 2019-02-28 15:39 | NUR ---
patient transferred to floor. all personal belongings gathered. vitals stable with no distress.
--- NOTE | 2019-02-28 15:45 | NUR ---
RECD PT FROM OBS VIA W/C AAOX3,DENIES PAIN NO DISTRESS NOTED.IV TO RT UA 20 GAUGE
[2019-02-28] MEDS: PANTOPRAZOL 40MG/SOD CHL 0.9% 50 ML IV SCH ×2 (17:35→20:51)
--- NOTE | 2019-02-28 17:37 | NUR ---
PT UP IN BED ,DENIES PAIN,IV PATENT,
[2019-02-28] MEDS: SERTRALINE HCL 100 MG TAB PO SCH (20:49)
[2019-02-28] MEDS: ATORVASTATIN 40 MG TAB PO SCH (20:49)
[2019-03-01] VITALS: BP 152/85
[2019-03-01] MEDS: METOCLOPRAMIDE HCL 10 MG/2ML VIAL IV SCH ×4 (01:34→17:39)
[2019-03-01] MEDS: PANTOPRAZOL 40MG/SOD CHL 0.9% 50 ML IV SCH ×4 (03:00→21:10)
[2019-03-01] MEDS: METRONIDAZOLE 500MG/NS 100ML IV SCH ×4 (03:58→21:10)
[2019-03-01 04:00] VITALS: BP 151/70
--- NOTE | 2019-03-01 06:38 | NUR ---
IM- progress note O/N; no events ROS: no cp/sob/dizziness/skin rash/f/c/s/back pain/vision changes/skin rash v/s; revd PE; tired appearing anicteric ns1s2 mod bs soft nd; lower abdomen tender B/L no e/t skin dry n. affect a&px3; bermeo labs/meds revd A/P: Acute colitis UTI Hypertensive heart ds HLD Allergic rhinitis Severe obesity BMI 51.8 PLAN IVF IV abx lipids/hba1c multivitamin/mineral PT consult SCD/pepcid dispo: cont care. 02/27 check labs and urine culture; f/u GI recs. 02/28 check K 03/01 check labs; control BP Brandon Overton MD,PhD.
[2019-03-01] MEDS: SODIUM CHLORIDE 0.9% 1000ML 1,000 ML IV SCH ×3 (06:57→12:15)
[2019-03-01 08:04] VITALS: BP 138/76
[2019-03-01] MEDS: MORPHINE SULFATE INJ 4 MG/ML INJ 1ML IV PRN (08:43)
[2019-03-01] MEDS: ONDANSETRON HCL INJ 2MG/ML 2ML 2 MG/ML VIAL IV PRN (08:43)
[2019-03-01] MEDS: DILTIAZEM HCL 60 MG TAB PO SCH (08:51)
[2019-03-01] MEDS: HYDROCHLOROTHIAZIDE 25 MG TAB PO SCH (08:53)
[2019-03-01] MEDS: LISINOPRIL 20 MG TAB PO SCH (08:54)
[2019-03-01 09:21] VITALS: BP 138/76
[2019-03-01] MEDS: CEFTRIAXONE SOD 1 GM/NS 50 ML 50 ML IV SCH (10:42)
[2019-03-01 11:50] VITALS: BP 126/77
[2019-03-01] MEDS: METOPROLOL TARTRATE 25 MG TAB PO SCH ×2 (13:13→21:10)
[2019-03-01 16:00] VITALS: BP 127/81
--- NOTE | 2019-03-01 18:59 | NUR ---
report given to shift nurse manager RN, pt awake, alert, family at bedside, in stable condition.
[2019-03-01] MEDS: ATORVASTATIN 40 MG TAB PO SCH (21:10)
[2019-03-01] MEDS: SERTRALINE HCL 100 MG TAB PO SCH (21:10)
[2019-03-02] VITALS (7 sets, daily range): BP systolic 136–158; BP diastolic 63–77
[2019-03-02] MEDS: METOCLOPRAMIDE HCL 10 MG/2ML VIAL IV SCH ×4 (00:27→17:22)
[2019-03-02] MEDS: PANTOPRAZOL 40MG/SOD CHL 0.9% 50 ML IV SCH ×5 (02:20→22:00)
[2019-03-02] MEDS: SODIUM CHLORIDE 0.9% 1000ML 1,000 ML IV SCH ×2 (02:20→12:15)
[2019-03-02] MEDS: METRONIDAZOLE 500MG/NS 100ML IV SCH ×4 (02:52→21:35)
[2019-03-02] MEDS: METOPROLOL TARTRATE 25 MG TAB PO SCH ×3 (06:00→21:36)
--- NOTE | 2019-03-02 07:13 | NUR ---
IM- progress note O/N; no events ROS: no cp/sob/dizziness/skin rash/f/c/s/back pain/vision changes/skin rash v/s; revd PE; tired appearing anicteric ns1s2 mod bs soft nd; lower abdomen tender B/L no e/t skin dry n. affect a&px3; bermeo labs/meds revd A/P: Acute colitis UTI Hypertensive heart ds HLD Allergic rhinitis Severe obesity BMI 51.8 PLAN IVF IV abx lipids/hba1c multivitamin/mineral PT consult SCD/pepcid dispo: cont care. 02/27 check labs and urine culture; f/u GI recs. 02/28 check K 03/01 check labs; control BP - check labs; d/c planning; replace Shira Overton MD,PhD.
[2019-03-02] MEDS ORDERED: REGLAN5 MG PO (07:16)
[2019-03-02] MEDS ORDERED: ZOFRAN4 MG PO (07:16)
[2019-03-02] MEDS ORDERED: FLAGYL500 MG PO (07:16)
[2019-03-02 08:12] LABS: BASOPHILS % 0.5 % (0.0-1.0); EOSINOPHILS # (AUTO) 0.1 (0.0-0.4); EOSINOPHILS % 0.8 % (0.0-6.0); HEMATOCRIT 34.6 % (34.2-44.1); HEMOGLOBIN 11.1 g/dL (12.0-16.0); LYMPHOCYTES # (AUTO) 1.2 (1.0-3.2); LYMPHOCYTES % 19.1 % (18.0-39.1); MEAN CORPUSCULAR HEMOGLOBIN 28.1 pg (28-32); MEAN CORPUSCULAR HGB CONC 32.1 g/dL (31-35); MEAN CORPUSCULAR VOLUME 87.6 fL (81-99); MONOCYTES # (AUTO) 0.6 (0.2-0.8); MONOCYTES % 8.6 % (4.4-11.3); NEUTROPHILS # (AUTO) 4.6 (2.1-6.9); NEUTROPHILS % 70.7 % (38.7-80.0); PLATELET COUNT 236 x10e3/uL (140-360); RED BLOOD COUNT 3.95 x10e6/uL (3.6-5.1); RED CELL DISTRIBUTION WIDTH 15.4 % (11.7-14.4)
[2019-03-02 08:27] LABS: ANION GAP 16.7 mmol/L (8-16); BLOOD UREA NITROGEN < 5 mg/dL (7-26); CALCIUM 8.8 mg/dL (8.4-10.2); CARBON DIOXIDE 21 mmol/L (22-29); CHLORIDE 102 mmol/L (98-107); EST GLOMERULAR FILTRATION RATE > 60 ML/MIN (60-); GLUCOSE 68 mg/dL (74-118); SODIUM 137 mmol/L (136-145)
[2019-03-02] MEDS: CEFTRIAXONE SOD 1 GM/NS 50 ML 50 ML IV SCH (08:30)
[2019-03-02 08:41] LABS: BUN/CREATININE RATIO 7 (6-25); POTASSIUM 2.7 mmol/L (3.5-5.1)
[2019-03-02 08:42] LABS: MAGNESIUM 1.4 MG/DL (1.3-2.1); PHOSPHORUS 3.4 MG/DL (2.3-4.7)
[2019-03-02] MEDS: DILTIAZEM HCL 60 MG TAB PO SCH ×2 (09:00→09:09)
[2019-03-02] MEDS: HYDROCHLOROTHIAZIDE 25 MG TAB PO SCH (09:09)
[2019-03-02] MEDS: LISINOPRIL 20 MG TAB PO SCH (09:09)
[2019-03-02] MEDS ORDERED: POTASSIUM CHLORIDE 20 MEQ TAB CR PO ONE ×2 (10:00→17:58)
[2019-03-02] MEDS ORDERED: POTASSIUM CHLORIDE 20MEQ/100ML 200 ML IV ONE (10:30)
--- NOTE | 2019-03-02 19:12 | NUR ---
PATIENT IS AWAKE AND IN STABLE CONDITION WITH NO S/S OF RESPIRATORY DISTRESS. NO PAIN VOICED. IV FLUIDS AND PROTONIX INFUSING. CALL LIGHT IS WITHIN REACH, PATIENT INSTRUCTED TO CALL FOR ASSISTANCE NEEDED. REPORT GIVEN TO ONCOMING NURSE.
--- NOTE | 2019-03-02 19:12 | NUR ---
CALLED AND INFORMED DR. AIKEN THAT 60MEQ OF POTASSIUM WAS CRUSHED FOR PATIENT BUT PATIENT IS NOW STATING SHE CANT NOT TAKE THE CRUSHED POTASSIUM AND WILL NOT BE ABLE TO TAKE THE LIQUID FORM. INQUIRED WITH DR. AIKEN ON ADDITION IV POTASSIUM ORDER- AWAITING CALLBACK.
[2019-03-02] MEDS: ATORVASTATIN 40 MG TAB PO SCH (21:36)
[2019-03-02] MEDS: SERTRALINE HCL 100 MG TAB PO SCH (21:36)
[2019-03-03] VITALS: BP 162/88
[2019-03-03] MEDS: METOCLOPRAMIDE HCL 10 MG/2ML VIAL IV SCH ×3 (00:53→11:20)
[2019-03-03] MEDS: SODIUM CHLORIDE 0.9% 1000ML 1,000 ML IV SCH ×2 (02:47→14:39)
[2019-03-03] MEDS: PANTOPRAZOL 40MG/SOD CHL 0.9% 50 ML IV SCH ×3 (02:47→14:30)
[2019-03-03] MEDS: METRONIDAZOLE 500MG/NS 100ML IV SCH ×3 (03:59→15:00)
[2019-03-03 04:00] VITALS: BP 163/77
[2019-03-03] MEDS: METOPROLOL TARTRATE 25 MG TAB PO SCH ×2 (05:48→13:01)
--- NOTE | 2019-03-03 07:15 | NUR ---
PATIENT IS IN STABLE CONDITION WITH NO S/S OF RESPIRATORY DISTRESS- NO PAIN VOICED. IV FLUIDS AND IV PROTONIX INFUSING. CALL LIGHT IS WITHIN REACH, PATIENT INSTRUCTED TO CALL FOR ASSISTANCE NEEDED.
[2019-03-03 07:26] VITALS: BP 136/73
[2019-03-03 08:09] LABS: BASOPHILS % 0.6 % (0.0-1.0); EOSINOPHILS # (AUTO) 0.1 (0.0-0.4); EOSINOPHILS % 1.1 % (0.0-6.0); HEMATOCRIT 33.8 % (34.2-44.1); LYMPHOCYTES # (AUTO) 1.9 (1.0-3.2); LYMPHOCYTES % 26.1 % (18.0-39.1); MEAN CORPUSCULAR HGB CONC 32.5 g/dL (31-35); MONOCYTES # (AUTO) 0.7 (0.2-0.8); MONOCYTES % 9.7 % (4.4-11.3); NEUTROPHILS # (AUTO) 4.4 (2.1-6.9); NEUTROPHILS % 62.2 % (38.7-80.0); PLATELET COUNT 249 x10e3/uL (140-360); RED BLOOD COUNT 3.93 x10e6/uL (3.6-5.1); RED CELL DISTRIBUTION WIDTH 15.5 % (11.7-14.4)
[2019-03-03] MEDS: HYDROCHLOROTHIAZIDE 25 MG TAB PO SCH (08:10)
[2019-03-03] MEDS: LISINOPRIL 20 MG TAB PO SCH (08:10)
[2019-03-03 08:17] LABS: ANION GAP 18.6 mmol/L (8-16); BLOOD UREA NITROGEN < 5 mg/dL (7-26); CALCIUM 8.9 mg/dL (8.4-10.2); CARBON DIOXIDE 22 mmol/L (22-29); CHLORIDE 100 mmol/L (98-107); CREATININE, SERUM 0.74 mg/dL (0.57-1.11); EST GLOMERULAR FILTRATION RATE > 60 ML/MIN (60-); GLUCOSE 71 mg/dL (74-118); SODIUM 138 mmol/L (136-145)
[2019-03-03 08:25] LABS: BUN/CREATININE RATIO 7 (6-25); POTASSIUM 2.6 mmol/L (3.5-5.1)
[2019-03-03] MEDS ORDERED: POTASSIUM CHLORIDE 20MEQ/100ML 200 ML IV STA (08:37)
[2019-03-03] MEDS ORDERED: DILTIAZEM HCL 180 MG CAP ER PO SCH (09:00)
[2019-03-03] MEDS: CEFTRIAXONE SOD 1 GM/NS 50 ML 50 ML IV SCH (09:56)
[2019-03-03 10:08] VITALS: BP 136/73
--- NOTE | 2019-03-03 10:56 | NUR ---
CALL PLACED OUT TO DR. RUSS FOR CLEARANCE- AWAITING CALLBACK.
[2019-03-03 11:00] VITALS: BP 146/69
[2019-03-03] MEDS ORDERED: POTASSIUM CHLORIDE 20MEQ/100ML 100 ML IV ONE (12:00)
--- NOTE | 2019-03-03 13:50 | NUR ---
D/C summary Principal Dx: Acute colitis UTI Hypokalemia Secondary Dx: Hypertensive heart ds HLD Allergic rhinitis Severe obesity BMI 51.8 PLAN IVF IV abx lipids/hba1c multivitamin/mineral PT consult SCD/pepcid dispo: cont care. 02/27 check labs and urine culture; f/u GI recs. 02/28 check K 03/01 check labs; control BP - check labs; d/c planning; replace K. d/c home f/u pcp 1 week and have potassium checked within 5 days; ENcouraged to eat 2 to 4 bananas daily stable d/c>35mins Brandon Overton MD,PhD.
[2019-03-03 15:15] VITALS: BP 140/77
--- NOTE | 2019-03-03 17:42 | NUR ---
PATIENT DISCHARGE HOME- PATIENT OFF THE UNIT AT 1648 PER WHEELCHAIR ACCOMPANIED BY PCT TO THE FRONT LOBBY. PATIENT IN STABLE CONDITION WITH NO S/S OF RESPIRATORY DISTRESS. NO PAIN VOICED. IV REMOVED WITH TIP INTACT. DISCHARGE TEACHING, INSTRUCTIONS, AND MEDICATIONS GIVEN TO THE PATIENT. ALL PERSONAL ITEMS TAKEN WITH THE PATIENT AND HER DAUGHTER.
== END 2019-03-03 16:48 | disposition home or self-care (01) | DRG 392 ==
LOC: ER 21:38 → ERHOLD 02-25 04:44 → IMCU 02-25 09:44 → OBSVTOIN 02-27 10:42 → MED/SURG3 02-28 15:36
PROVIDERS: ADMIT Internal Medicine; ATTEND Internal Medicine
DX: K52.9 Noninfective gastroenteritis and colitis, unspecified (principal); Z68.43 Body mass index [BMI] 50.0-59.9, adult; N39.0 Urinary tract infection, site not specified; K63.89 Other specified diseases of intestine; Z98.84 Bariatric surgery status; E66.01 Morbid (severe) obesity due to excess calories; I11.9 Hypertensive heart disease without heart failure; E78.5 Hyperlipidemia, unspecified; E87.6 Hypokalemia; J30.9 Allergic rhinitis, unspecified; K59.00 Constipation, unspecified
CPT/HCPCS: 36415; 74176; 80048; 80053; 81001; 83690; 83735; 84100; 84132; 85025; 87086; 93005; 96361; 99284; G0378; J0696; J1885; J1956; J2270; J2405; J2765; J3480; J7030; Q9967